=== PATIENT | female | born 1960 | race Caucasian/White ===

== ENCOUNTER → 2017-09-09 11:50 | Outpatient (CLI) | payer OTHER, SELFPAY ==
--- NOTE | 2017-09-09 | DI.RAD.S_ITS ---
PROCEDURE: XR ANKLE RT MIN 3V INDICATIONS: PAIN IN RT ANKLE AND JOINTS OF RT FOOT TECHNIQUE: 3 views of the ankle were acquired. COMPARISON: None. FINDINGS: Bones: No fractures or dislocations. Ankle mortise is normally aligned. No suspicious bony lesions. Soft tissues: No tibiotalar joint effusion. Achilles tendon appears normal. IMPRESSION: No acute radiographic findings. If there is continued pain, followup exam or additional imaging such as MRI or CT could be performed for further assessment. Dictated by: Ingrid Xie M.D. on 09/09/2017 at 12:33 Approved by: Ingrid Xie M.D. on 09/09/2017 at 12:33
== END ==
PROVIDERS: PCP Internal Medicine; Visit Provider Student in an Organized Health Care Education/Training Program
DX: M25.571 Pain in right ankle and joints of right foot (principal)
CPT/HCPCS: 73610

== ENCOUNTER → 2017-09-16 09:50 | Outpatient (CLI) | payer OTHER, SELFPAY ==
[2017-09-16 11:45] LABS: Alanine Aminotransferase 35 IU/L (9-52); Aspartate Aminotransferase 28 IU/L (14-36); BUN Creatinine Ratio 17.5 (6-22); Blood Urea Nitrogen 14 mg/dL (7-17); Calcium 9.7 mg/dL (8.4-10.2); Carbon Dioxide 32 mmol/L (22-32); Chloride 99 mmol/L (98-107); Cholesterol 148 mg/dL (140-199); Estimated Glomerular Filt Rate > 60.0 mL/min (>60); Glucose 164 mg/dL (70-100); HDL Cholesterol 48 mg/dL (40-60); HEMOLYSIS < 15 (0-50); LDL Cholesterol Calculated 62 mg/dL (<100); Potassium 4.7 mmol/L (3.4-5.1); Sodium 141 mmol/L (137-145); Triglycerides 191 mg/dL (35-150)
[2017-09-16 11:52] LABS: Hemoglobin A1C% w Est Avg Glu 7.4 % (4.0-6.0)
[2017-09-16 15:52] LABS: Creatinine Urine Random 123.8 mg/dL
== END ==
PROVIDERS: PCP Internal Medicine; Visit Provider Internal Medicine
DX: E11.9 Type 2 diabetes mellitus without complications (principal); E78.5 Hyperlipidemia, unspecified
CPT/HCPCS: 36415; 80048; 80061; 82043; 82570; 83036; 84450; 84460

== ENCOUNTER → 2017-10-09 10:17 | Outpatient (CLI) | payer OTHER, SELFPAY ==
[2017-10-09 10:35] LABS: Add Manual Diff / Slide Review NO; Hematocrit 37.9 % (36-46); Lymphocytes Percent Auto 20.8 % (25-40); Mean Corpuscular HGB Conc 34.3 % (30-36); Mean Corpuscular Hemoglobin 31.2 PG (26-34); Mean Corpuscular Volume 91.1 fL (80-100); Monocytes Percent Auto 6.9 % (3-14); Neutrophils Absolute Auto 3400 /uL (3000-5900); Neutrophils Percent Auto 69.3 % (50-75); Platelet Count 212 X10^3/uL (150-400); Red Blood Cell Count 4.16 X10^6/uL (4.0-5.2); Red Cell Distribution Width 15.2 % (11.6-14.8)
[2017-10-09 10:46] LABS: Alanine Aminotransferase 35 IU/L (9-52); Albumin 4.4 g/dL (3.5-5.0); Albumin Globulin Ratio 1.5 (1.0-2.8); Alkaline Phosphatase 70 U/L (38-126); Aspartate Aminotransferase 27 IU/L (14-36); BUN Creatinine Ratio 22.9 (6-22); Bilirubin Total 0.6 mg/dL (0.2-1.3); Blood Urea Nitrogen 16 mg/dL (7-17); Calcium 9.7 mg/dL (8.4-10.2); Carbon Dioxide 29 mmol/L (22-32); Chloride 104 mmol/L (98-107); Estimated Glomerular Filt Rate > 60.0 mL/min (>60); Glucose 172 mg/dL (70-100); HEMOLYSIS < 15 (0-50); Potassium 4.6 mmol/L (3.4-5.1); Sodium 144 mmol/L (137-145); Total Protein 7.4 g/dL (6.3-8.2)
== END ==
PROVIDERS: Family Provider Psychiatry & Neurology Neurology; PCP Internal Medicine; Visit Provider Psychiatry & Neurology Neurology
DX: T88.7XXA Unspecified adverse effect of drug or medicament, initial encounter (principal)
CPT/HCPCS: 36415; 80053; 85025

== ENCOUNTER → 2017-10-24 08:52 | Outpatient (CLI) | payer OTHER, SELFPAY ==
--- NOTE | 2017-10-24 | DI.MRI.S_ITS ---
PROCEDURE: MR CERVICAL SPINE WO/W CON INDICATIONS: MS TECHNIQUE: Noncontrast sagittal T1 spin echo and T2 fast spin echo, sagittal STIR, sagittal PD fast spin echo, foraminal oblique sagittal T2 fast spin echo, axial gradient echo or T2 fast spin echo through the cervical spine. After the administration of contrast, sagittal and axial T1 spin echo with fat saturation through the cervical spine. COMPARISON: [facility], MR, C-SPINE W&WO CONTRAST, 05/10/2016, 8:46. [facility], MR, C-SPINE W&WO CONTRAST, 03/28/2017, 17:18. FINDINGS: Image quality: Excellent. Alignment and curvature: There is normal bony alignment. Marrow: Marrow demonstrates normal overall signal. Spinal cord: T2 hyperintense white matter lesions are present in cervical cord at the level of C5-C6 and C7, unchanged from the last exam. On contrast enhanced images, there is subtle enhancement involving the C5-C6 lesion. No suspicious intramedullary enhancement. No cerebellar tonsillar herniation. Paraspinous soft tissues: No paravertebral masses or suspicious enhancement. C2-C3: Normal appearance. C3-C4: Moderate disc desiccation with preserved disc height. There is broad posterior disc bulge. There is mild bilateral facet arthropathy. The central canal is minimally narrowed. Moderate left and mild right foraminal stenosis, unchanged from the last exam. C4-C5: Moderate disc desiccation with preserved disc height. There is broad posterior disc bulge and disc osteophyte complex. There is mild bilateral facet arthropathy. The central canal is minimally narrowed. No significant foraminal stenosis. C5-C6: Surgically fused. No significant central canal or foraminal stenosis. C6-C7: Surgically fused. Broad posterior osteophyte causing [id number] central canal stenosis. No foraminal stenosis. No significant change. C7-T1: Normal appearance. IMPRESSION: 1. White matter lesions in the cervical cord at C5-C6 and C7 levels appear unchanged in size when compared to the last exam. The C5-C6 lesion, however, demonstrates subtle enhancement. 2. No new lesions identified. 3. Degenerative and post surgical changes in cervical spine as described. 4. Moderate to severe central canal stenosis at C6-C7. 5. Foraminal stenosis at multiple levels as described. Dictated by: Robb Heard M.D. on 10/24/2017 at 14:33 Approved by: Robb Heard M.D. on 10/24/2017 at 14:44
--- NOTE | 2017-10-24 | DI.MRI.S_ITS ---
PROCEDURE: MR HEAD/BRAIN WO/W CON INDICATIONS: 57 year-old woman with multiple sclerosis. TECHNIQUE: Noncontrast axial T1 spin echo, axial T2 fast spin echo, sagittal and axial FLAIR, coronal T2 fast spin echo, axial gradient echo, axial diffusion and ADC through the brain. After the administration of contrast, axial and coronal 3D VIBE or T1 spin echo with fat saturation through the brain. COMPARISON: [facility], MR, BRAIN W&WO CONTRAST, 03/28/2017, 17:18. [facility], MR, BRAIN W&WO CONTRAST, 05/10/2016, 8:22. FINDINGS: Image quality: Excellent. CSF Spaces: Basal cisterns are patent. No extra-axial fluid collections. Ventricles are normal in size and shape. Brain: Foci of T2 hyperintensity in periarticular matter involving the corpus callosum are again noted, consistent with multiple sclerosis. Compared with the last MRI, white matter lesions are overall stable in size and number. There are no enhancing lesions present. No midline shift. No intracranial bleeds or masses. No abnormal intracranial enhancement. The brainstem appears normal. Diffusion-weighted images demonstrate no acute ischemic insults. No chronic ischemic insults. Normal intravascular flow voids are present. Skull and face: Calvarial marrow is normal in signal. Orbits appear normal. Sinuses: Mastoids appear clear. Mild ethmoid sinus mucosal thickening is again noted. IMPRESSION: 1. Stable white matter lesions consistent with multiple sclerosis. No enhancing lesions are present. 2. Mild chronic ethmoid sinus disease. Dictated by: Robb Heard M.D. on 10/24/2017 at 14:18 Approved by: Robb Heard M.D. on 10/24/2017 at 14:33
--- NOTE | 2017-10-24 | DI.MRI.S_ITS ---
PROCEDURE: MR THORACIC SPINE WO/W CON INDICATIONS: 57-year-old woman with multiple sclerosis. TECHNIQUE: Noncontrast sagittal T1 spin echo and T2 fast spin echo, sagittal STIR, axial T1 and T2 fast spin echo through the thoracic spine. After the administration of contrast, axial and sagittal T1 spin echo with fat saturation through the thoracic spine. COMPARISON: [facility], MR, C-SPINE W&WO CONTRAST, 01/10/2015, 7:35. [facility], MR, MR CERVICAL SPINE WO/W CON, 10/24/2017, 9:29. [facility], MR, C-SPINE W&WO CONTRAST, 03/28/2017, 17:18. FINDINGS: Image quality: Excellent. Alignment and curvature: There is normal bony alignment. Marrow: Marrow is of normal overall signal. No acute vertebral body compression fractures. Spinal cord: Visualized thoracic spinal cord is of normal signal and size. No white matter lesion is identified. No abnormal intramedullary enhancement. Paraspinous soft tissues: No paravertebral masses or abnormal enhancement. Miscellaneous: Central canal and foramina appear widely patent at all scanned levels. IMPRESSION: No MS plaques are identified in the thoracic cord. Dictated by: Robb Heard M.D. on 10/24/2017 at 14:44 Approved by: Robb Heard M.D. on 10/24/2017 at 14:46
== END ==
PROVIDERS: Family Provider Psychiatry & Neurology Neurology; PCP Internal Medicine; Visit Provider Psychiatry & Neurology Neurology
DX: G35 Multiple sclerosis (principal); J32.2 Chronic ethmoidal sinusitis; Z98.1 Arthrodesis status; M48.02 Spinal stenosis, cervical region; M47.812 Spondylosis without myelopathy or radiculopathy, cervical region; M50.21 Other cervical disc displacement, high cervical region
CPT/HCPCS: 70553; 72156; 72157; A9579

== ENCOUNTER → 2017-11-25 09:00 | Outpatient (CLI) | payer OTHER, SELFPAY | PROVIDERS: Family Provider Psychiatry & Neurology Neurology; PCP Internal Medicine | DX: Z23 Encounter for immunization (principal) | CPT/HCPCS: 90471; 90686 ==

== ENCOUNTER → 2017-12-13 08:43 | Outpatient (CLI) | payer OTHER, SELFPAY ==
[2017-12-13 09:00] LABS: Add Manual Diff / Slide Review NO; Basophils Percent Auto 1.2 % (0-2); Eosinophils Percent Auto 2.1 % (2-4); Hematocrit 36.9 % (36-46); Hemoglobin 12.5 g/dL (12.0-16.0); Lymphocytes Percent Auto 22.8 % (25-40); Mean Corpuscular HGB Conc 33.9 % (30-36); Mean Corpuscular Hemoglobin 30.3 PG (26-34); Mean Corpuscular Volume 89.4 fL (80-100); Monocytes Percent Auto 7.4 % (3-14); Neutrophils Absolute Auto 2900 /uL (3000-5900); Neutrophils Percent Auto 66.5 % (50-75); Platelet Count 200 X10^3/uL (150-400); Red Blood Cell Count 4.12 X10^6/uL (4.0-5.2); Red Cell Distribution Width 14.8 % (11.6-14.8); White Blood Cell Count 4.3 X10^3/uL (4.5-11.0)
[2017-12-13 09:11] LABS: Alanine Aminotransferase 31 IU/L (9-52); Albumin 4.4 g/dL (3.5-5.0); Albumin Globulin Ratio 1.5 (1.0-2.8); Alkaline Phosphatase 64 U/L (38-126); Aspartate Aminotransferase 22 IU/L (14-36); Bilirubin Total 0.4 mg/dL (0.2-1.3); Blood Urea Nitrogen 16 mg/dL (7-17); Calcium 8.9 mg/dL (8.4-10.2); Carbon Dioxide 27 mmol/L (22-32); Chloride 103 mmol/L (98-107); Estimated Glomerular Filt Rate > 60.0 mL/min (>60); Globulin 2.9 g/dL (1.7-4.1); Glucose 217 mg/dL (70-100); HEMOLYSIS < 15 (0-50); Potassium 4.2 mmol/L (3.4-5.1); Sodium 143 mmol/L (137-145); Total Protein 7.3 g/dL (6.3-8.2)
[2017-12-13 09:36] LABS: Vitamin D 25 Hydroxy (D3) 52.9 ng/mL (30.0-100.0)
== END ==
PROVIDERS: Family Provider Psychiatry & Neurology Neurology; PCP Internal Medicine; Visit Provider Physician Assistant
DX: E55.9 Vitamin D deficiency, unspecified (principal); T88.7XXA Unspecified adverse effect of drug or medicament, initial encounter
CPT/HCPCS: 36415; 80053; 82306; 85025

== ENCOUNTER 2018-01-23 07:30 | Outpatient (RCR) | payer OTHER, SELFPAY ==
--- NOTE | 2017-11-22 16:02 | PT.OIE ---
Current Diagnoses Multiple sclerosis (11/21/17) Provider Visit Care Team Role Provider Type Christelle Padron MD Primary Care Provider Physician Specialty: Internal Medicine Address: [address] [place] [address], [place], [address] Email: Fawad Antunez MD Attending Provider Non-Staff Family Provider Specialty: Neurology Address: [address] , [place], [address] Email: Physical Therapy Initial Evaluation PT-OP-A Visit Information Start: 11/21/17 07:28 Freq: Status: Active Protocol: Document 11/21/17 07:30 AMB (Rec: 11/22/17 07:13 AMB [email or web address]) Out-Patient Physical Therapy Visit Information Visit Information Visit Type Initial Evaluation Visit Start Time 07:30 Visit Stop Time 08:15 Total Visit Minutes 45 Visit Number 1 Evaluation Information Evaluation Date 11/21/17 PT-OP-B Current Condition Start: 11/21/17 07:28 Freq: Status: Active Protocol: Document 11/21/17 07:30 AMB (Rec: 11/22/17 15:44 AMB [email or web address]) Current Condition History of Current Condition Onset Date 9 months ago Current Complaints R foot drop History of Current Condition The patient was diagnosed with multiple sclerosis 23 years ago. She was fairly asymptomatic until an MS flare 9 months ago and she developed right sided foot drop at that time. Since then her frequency of falling has increased. She thinks she has fallen 8x in the last 6 months, many more near misses. Often falls are when she is doing higher level activities (biking, hiking)but sometimes when she is walking she trips over her right foot. Prior Functional Status Baseline Function- ADL's Independent Baseline Function- Mobility Independent Baseline Function- Work/School Pt works and drives. 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 Current Functional Impairments (Reported) Functional Limitations- Mobility/Gait Frequent falls, especially with uneven terrain, pt does not use an assistive device. Personal Factors Other Personal Factors That May Effect DMII, history of cervical Therapy/Recovery spine surgery for cervical stenosis. PT-OP-C Subjective Start: 11/21/17 07:28 Freq: Status: Active Protocol: Document 11/21/17 07:30 AMB (Rec: 11/22/17 15:44 AMB [email or web address]) Patient Questionnaires Foot & Ankle Ability Measure- ADL and Sports FAAM-ADL Score 75 FAAM-ADL Impairment 1 to 19% Impaired (Score 67-83 ) FAAM-Sport Score 24 FAAM-Sport Impairment 20 to 39% Impaired (Score 19- 24) Lower Extremity Functional Scale LEFS Score 74 LEFS Impairment 1 to 19% Impaired (Score 63-79 ) PT-OP-D Balance Start: 11/21/17 07:28 Freq: Status: Active Protocol: Document 11/21/17 07:30 AMB (Rec: 11/22/17 15:49 AMB [email or web address]) Balance Tests Single Limb Standing Single Limb- Right 10 seconds, increased ankle sway Single Limb- Left 12 seconds Tandem Tandem Standing falls PT-OP-E Functional Tests Start: 11/22/17 15:44 Freq: Status: Active Protocol: Document 11/21/17 07:30 AMB (Rec: 11/22/17 15:49 AMB [email or web address]) Functional Tests Dynamic Gait Index (DGI) Score 17 DGI Impairment Rating 20 to <40% Impaired (Score 15- 19) PT-OP-G Mobility & Gait Start: 11/21/17 07:28 Freq: Status: Active Protocol: Document 11/21/17 07:30 AMB (Rec: 11/22/17 15:49 AMB [email or web address]) OP Gait Assessment Comments Gait Comments Pt ambulates without assistive device with good step length, but increased steppage gait on the right to compensate for foot drop. When trying off the shelf AFO, she continued to compensate as she now has that habit. PT-OP-H Neuro Start: 11/21/17 07:28 Freq: Status: Active Protocol: Document 11/21/17 07:30 AMB (Rec: 11/22/17 15:49 AMB [email or web address]) Sensation Evaluation Comments Summary Comments Pt reports bilateral neuropathy, worst in toes, bottom of the feet. PT-OP-M Strength Start: 11/21/17 07:28 Freq: Status: Active Protocol: Document 11/21/17 07:30 AMB (Rec: 11/22/17 15:44 AMB [email or web address]) Ankle/Foot Strength Ankle and Foot Manual Muscle Testing Right Dorsiflexion (L4) 3 Fair Plantarflexion (S1) 4+ Good+ Inversion 3 Fair Eversion (S1) 3 Fair Left Dorsiflexion (L4) 5 Normal Plantarflexion (S1) 5 Normal Inversion 4+ Good+ Eversion (S1) 5 Normal PT-OP-Q Treatments Start: 11/21/17 07:28 Freq: Status: Active Protocol: Document 11/21/17 07:30 AMB (Rec: 11/22/17 11:26 AMB [email or web address]) Therapeutic Exercises Sitting Exercises 1 Sitting Exercise Name ankle dorsiflexion t band Resistance #3 band Reps/Minutes 10 reps Standing Exercises 2 Standing Exercise Name single leg balance Reps/Minutes 3-5 1 Standing Exercise Name modified tandem stance Reps/Minutes 30x2 PT-OP-T Assessment and Plan Start: 11/21/17 07:28 Freq: Status: Active Protocol: Document 11/21/17 07:30 AMB (Rec: 11/22/17 13:00 AMB [email or web address]) Physical Therapy Assessment Rehab Potential Rehabilitation Potential Good Evaluation Complexity Number of Personal Factors/Comorbidities 1-2 Number of Body Systems Impaired 3 Clinical Presentation at Evaluation Stable Impairments Impairments Balance Gait Strength Goals Two Impairment Balance Short Term Goal (STG) The patient will maintain modified tandem stance for 30 seconds without excessive hip or steppage response. STG Duration 4 weeks Detention Goal (LTG) The patient will show improved balance by improving her DGI to 20/24. LTG Duration 8 weeks One Impairment Foot drop Short Term Goal (STG) The patient will be independent with an ankle strengthening HEP. STG Duration 4 weeks Electronic Drafter Goal (LTG) The patient will ambulate in the community for 10 minutes without steppage or circumduction gait compensation. LTG Duration 8 weeks Assessment Summary Assessment The patient attends physical therapy with new onset right foot drop associated with multiple sclerosis. This is increasing her fall risk. Considering that she reports approximately 8 falls in the past 6 months she would greatly benefit from an AFO. She tried an off the shelf AFO during her evaluation, and she would need some time to get used to the brace, but it did help with her foot drop. She would also benefit from PT to improve her ankle stability. Physical Therapy Plan Frequency and Duration Frequency of Treatment 1x/Week Duration of Treatment 12 weeks Plan of Care Start Date 11/21/17 Plan of Care End Date 02/13/17 Therapeutic Interventions Therapeutic Interventions Aquatic Therapy Balance Training Gait Training Home Exercise Program Manual Therapy Neuromuscular Re-education Self-Care/Home Management Therapeutic Activities Therapeutic Exercises Modalities Cold Pack/Ice Massage Hot Packs Other Therapeutic Interventions Sending prescription for AFO to [facility] Next Visit Focus/Plan Next Note Type Treatment Note Next Visit Plan Progress ankle stability HEP, balance training
--- NOTE | 2017-11-22 16:02 | PT.OPPOC ---
Current Diagnoses Multiple sclerosis (11/21/17) Provider Visit Care Team Role Provider Type Christelle Padron MD Primary Care Provider Physician Specialty: Internal Medicine Address: [address] [place] [address], [place], [address] Email: Fawad Antunez MD Attending Provider Non-Staff Family Provider Specialty: Neurology Address: [address], [place], [address] Email: Plan Of Care PT-OP-T Assessment and Plan Start: 11/21/17 07:28 Freq: Status: Active Protocol: Document 11/21/17 07:30 AMB (Rec: 11/22/17 13:00 AMB [email or web address]) Physical Therapy Assessment Rehab Potential Rehabilitation Potential Good Evaluation Complexity Number of Personal Factors/Comorbidities 1-2 Number of Body Systems Impaired 3 Clinical Presentation at Evaluation Stable Impairments Impairments Balance Gait Strength Goals Two Impairment Balance Short Term Goal (STG) The patient will maintain modified tandem stance for 30 seconds without excessive hip or steppage response. STG Duration 4 weeks Half-Way Goal (LTG) The patient will show improved balance by improving her DGI to 20/24. LTG Duration 8 weeks One Impairment Foot drop Short Term Goal (STG) The patient will be independent with an ankle strengthening HEP. STG Duration 4 weeks Wire Splicer Goal (LTG) The patient will ambulate in the community for 10 minutes without steppage or circumduction gait compensation. LTG Duration 8 weeks Assessment Summary Assessment The patient attends physical therapy with new onset right foot drop associated with multiple sclerosis. This is increasing her fall risk. Considering that she reports approximately 8 falls in the past 6 months she would greatly benefit from an AFO. She tried an off the shelf AFO during her evaluation, and she would need some time to get used to the brace, but it did help with her foot drop. She would also benefit from PT to improve her ankle stability. Physical Therapy Plan Frequency and Duration Frequency of Treatment 1x/Week Duration of Treatment 12 weeks Plan of Care Start Date 11/21/17 Plan of Care End Date 02/13/17 Therapeutic Interventions Therapeutic Interventions Aquatic Therapy Balance Training Gait Training Home Exercise Program Manual Therapy Neuromuscular Re-education Self-Care/Home Management Therapeutic Activities Therapeutic Exercises Modalities Cold Pack/Ice Massage Hot Packs Other Therapeutic Interventions Sending prescription for AFO to [facility] Next Visit Focus/Plan Next Note Type Treatment Note Next Visit Plan Progress ankle stability HEP, balance training Plan of Care Dates Plan of Care Start Date 11/21/17 Plan of Care End Date 02/13/17 Please Sign and Return: I have reviewed this Plan of Care and certify that the skilled therapy services above are required to meet the patient?s needs. Physician Signature Date Printed Name and Credentials Clinical Instructor Signature Printed Name and Credentials
--- NOTE | 2017-12-12 09:39 | PT.OTN ---
Current Diagnoses Multiple sclerosis (12/12/17) Foot drop, right foot (12/12/17) Physical Therapy Treatment Note PT-OP-A Visit Information Start: 11/21/17 07:28 Freq: Status: Active Protocol: Document 12/12/17 08:15 AMB (Rec: 12/12/17 09:39 AMB [email or web address]) Out-Patient Physical Therapy Visit Information Visit Information Visit Type Treatment Note Visit Start Time 08:15 Visit Stop Time 09:00 Total Visit Minutes 45 Visit Number 2 Evaluation Information Evaluation Date 11/21/17 PT-OP-B Current Condition Start: 11/21/17 07:28 Freq: Status: Active Protocol: Document 11/21/17 07:30 AMB (Rec: 11/22/17 15:44 AMB [email or web address]) Current Condition History of Current Condition Onset Date 9 months ago Current Complaints R foot drop History of Current Condition The patient was diagnosed with multiple sclerosis 23 years ago. She was fairly asymptomatic until an MS flare 9 months ago and she developed right sided foot drop at that time. Since then her frequency of falling has increased. She thinks she has fallen 8x in the last 6 months, many more near misses. Often falls are when she is doing higher level activities (biking, hiking)but sometimes when she is walking she trips over her right foot. Prior Functional Status Baseline Function- ADL's Independent Baseline Function- Mobility Independent Baseline Function- Work/School Pt works and drives. 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 Current Functional Impairments (Reported) Functional Limitations- Mobility/Gait Frequent falls, especially with uneven terrain, pt does not use an assistive device. Personal Factors Other Personal Factors That May Effect DMII, history of cervical Therapy/Recovery spine surgery for cervical stenosis. PT-OP-C Subjective Start: 11/21/17 07:28 Freq: Status: Active Protocol: Document 12/12/17 08:15 AMB (Rec: 12/12/17 09:39 AMB [email or web address]) OP-PT Subjective Patient Comments Patient Comments Pt reports she has been doing well. She does note the foot drop at the end of the day when she has been busy, but otherwise it is better. She decided not to get the AFO. She has had no falls since the last time she was in PT. PT-OP-D Balance Start: 11/21/17 07:28 Freq: Status: Active Protocol: Document 11/21/17 07:30 AMB (Rec: 11/22/17 15:49 AMB [email or web address]) Balance Tests Single Limb Standing Single Limb- Right 10 seconds, increased ankle sway Single Limb- Left 12 seconds Tandem Tandem Standing falls PT-OP-E Functional Tests Start: 11/22/17 15:44 Freq: Status: Active Protocol: Document 11/21/17 07:30 AMB (Rec: 11/22/17 15:49 AMB [email or web address]) Functional Tests Dynamic Gait Index (DGI) Score 17 DGI Impairment Rating 20 to <40% Impaired (Score 15- 19) PT-OP-G Mobility & Gait Start: 11/21/17 07:28 Freq: Status: Active Protocol: Document 11/21/17 07:30 AMB (Rec: 11/22/17 15:49 AMB [email or web address]) OP Gait Assessment Comments Gait Comments Pt ambulates without assistive device with good step length, but increased steppage gait on the right to compensate for foot drop. When trying off the shelf AFO, she continued to compensate as she now has that habit. PT-OP-H Neuro Start: 11/21/17 07:28 Freq: Status: Active Protocol: Document 11/21/17 07:30 AMB (Rec: 11/22/17 15:49 AMB [email or web address]) Sensation Evaluation Comments Summary Comments Pt reports bilateral neuropathy, worst in toes, bottom of the feet. PT-OP-M Strength Start: 11/21/17 07:28 Freq: Status: Active Protocol: Document 11/21/17 07:30 AMB (Rec: 11/22/17 15:44 AMB [email or web address]) Ankle/Foot Strength Ankle and Foot Manual Muscle Testing Right Dorsiflexion (L4) 3 Fair Plantarflexion (S1) 4+ Good+ Inversion 3 Fair Eversion (S1) 3 Fair Left Dorsiflexion (L4) 5 Normal Plantarflexion (S1) 5 Normal Inversion 4+ Good+ Eversion (S1) 5 Normal PT-OP-Q Treatments Start: 11/21/17 07:28 Freq: Status: Active Protocol: Document 12/12/17 08:15 AMB (Rec: 12/12/17 09:39 AMB [email or web address]) Gym Equipment Shuttle Balance 1 Details RED Reps/Duration 10 min Comments stride stance eyes open Therapeutic Exercises Sitting Exercises 2 Sitting Exercise Name ankle eversion t band Equipment Used #3 band Reps/Minutes 2x10 1 Sitting Exercise Name ankle dorsiflexion t band Resistance #3 band Reps/Minutes 2x 10 reps Standing Exercises 4 Standing Exercise Name calf stretch Equipment Used DINO Comments 30x2 3 Standing Exercise Name heel raise Comments single/ double leg 2 Standing Exercise Name single leg balance Reps/Minutes 3-5 1 Standing Exercise Name modified tandem stance Reps/Minutes 30x2 Neuro Re-Education Treatment Balance Activities 1 Details NBOS on berry foam Comments eyes closed/ eyes open with head turn PT-OP-T Assessment and Plan Start: 11/21/17 07:28 Freq: Status: Active Protocol: Document 12/12/17 08:15 AMB (Rec: 12/12/17 09:39 AMB [email or web address]) Physical Therapy Assessment Assessment Summary Assessment Pt's dorsiflexion strength is improving, difficulty with single leg heel raise, so added that to HEP. See pt again in one month to progress exercises. Physical Therapy Plan Next Visit Focus/Plan Next Note Type Treatment Note Next Visit Plan Progress ankle stability HEP, balance training
--- NOTE | 2018-01-23 16:10 | PT.OTN ---
Current Diagnoses Multiple sclerosis (01/23/18) Foot drop, right foot (01/23/18) Physical Therapy Treatment Note PT-OP-A Visit Information Start: 11/21/17 07:28 Freq: Status: Active Protocol: Document 01/23/18 07:30 AMB (Rec: 01/23/18 16:07 AMB [email or web address]) Out-Patient Physical Therapy Visit Information Visit Information Visit Type Discharge Summary Visit Start Time 07:30 Visit Stop Time 08:15 Total Visit Minutes 45 Visit Number 3 Evaluation Information Evaluation Date 11/21/17 PT-OP-B Current Condition Start: 11/21/17 07:28 Freq: Status: Active Protocol: Document 11/21/17 07:30 AMB (Rec: 11/22/17 15:44 AMB [email or web address]) Current Condition History of Current Condition Onset Date 9 months ago Current Complaints R foot drop History of Current Condition The patient was diagnosed with multiple sclerosis 23 years ago. She was fairly asymptomatic until an MS flare 9 months ago and she developed right sided foot drop at that time. Since then her frequency of falling has increased. She thinks she has fallen 8x in the last 6 months, many more near misses. Often falls are when she is doing higher level activities (biking, hiking)but sometimes when she is walking she trips over her right foot. Prior Functional Status Baseline Function- ADL's Independent Baseline Function- Mobility Independent Baseline Function- Work/School Pt works and drives. 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 Current Functional Impairments (Reported) Functional Limitations- Mobility/Gait Frequent falls, especially with uneven terrain, pt does not use an assistive device. Personal Factors Other Personal Factors That May Effect DMII, history of cervical Therapy/Recovery spine surgery for cervical stenosis. PT-OP-C Subjective Start: 11/21/17 07:28 Freq: Status: Active Protocol: Document 01/23/18 07:30 AMB (Rec: 01/23/18 16:07 AMB [email or web address]) OP-PT Subjective Patient Comments Patient Comments Pt reports she has been doing her exercises and feels she is about 85% of what she was previous to the MS flare. PT-OP-D Balance Start: 11/21/17 07:28 Freq: Status: Active Protocol: Document 01/23/18 07:30 AMB (Rec: 01/23/18 16:10 AMB [email or web address]) Balance Tests Single Limb Standing Single Limb- Right 10 seconds, increased ankle sway Single Limb- Left 12 seconds Tandem Tandem Standing able to tandem walk PT-OP-E Functional Tests Start: 11/22/17 15:44 Freq: Status: Active Protocol: Document 01/23/18 07:30 AMB (Rec: 01/23/18 16:10 AMB [email or web address]) Functional Tests Dynamic Gait Index (DGI) Score 23 PT-OP-G Mobility & Gait Start: 11/21/17 07:28 Freq: Status: Active Protocol: Document 01/23/18 07:30 AMB (Rec: 01/23/18 16:10 AMB [email or web address]) OP Gait Assessment Comments Gait Comments Pt with good gait pattern when assessed in the morning. No steppage gait noted. PT-OP-H Neuro Start: 11/21/17 07:28 Freq: Status: Active Protocol: Document 11/21/17 07:30 AMB (Rec: 11/22/17 15:49 AMB [email or web address]) Sensation Evaluation Comments Summary Comments Pt reports bilateral neuropathy, worst in toes, bottom of the feet. PT-OP-M Strength Start: 11/21/17 07:28 Freq: Status: Active Protocol: Document 01/23/18 07:30 AMB (Rec: 01/23/18 16:10 AMB [email or web address]) Ankle/Foot Strength Ankle and Foot Manual Muscle Testing Right Dorsiflexion (L4) 4+ Good+ Plantarflexion (S1) 4+ Good+ Inversion 4+ Good+ Eversion (S1) 4+ Good+ PT-OP-Q Treatments Start: 11/21/17 07:28 Freq: Status: Active Protocol: Document 01/23/18 07:30 AMB (Rec: 01/23/18 16:07 AMB [email or web address]) Gym Equipment Shuttle Balance 1 Details RED Reps/Duration 10 min Comments stride stance eyes open Therapeutic Exercises Standing Exercises 4 Standing Exercise Name calf stretch Equipment Used DINO Comments 30x2 3 Standing Exercise Name heel raise Comments single/ double leg 2 Standing Exercise Name single leg balance Reps/Minutes 3-5 1 Standing Exercise Name modified tandem stance Reps/Minutes 30x2 Neuro Re-Education Treatment Balance Activities 2 Details 3 step and SLS with hip ER 1 Details NBOS on berry foam Comments eyes closed/ eyes open with head turn PT-OP-T Assessment and Plan Start: 11/21/17 07:28 Freq: Status: Active Protocol: Document 01/23/18 07:30 AMB (Rec: 01/23/18 16:07 AMB [email or web address]) Physical Therapy Assessment Goals Two Impairment Balance Short Term Goal (STG) The patient will maintain modified tandem stance for 30 seconds without excessive hip or steppage response. STG Duration MET Mcfp Goal (LTG) The patient will show improved balance by improving her DGI to 20/24. LTG Duration EXCEEDED One Impairment Foot drop Short Term Goal (STG) The patient will be independent with an ankle strengthening HEP. STG Duration MET Mcfp Goal (LTG) The patient will ambulate in the community for 10 minutes without steppage or circumduction gait compensation. LTG Duration EXCEEDED Assessment Summary Assessment Pt did well with higher level strengthening and balance exercises today. Single leg stance bilaterally is below age norm but much improved. No more falls and not noticing foot drop any more. Would encourage pt to continue with higher level balance HEP. Physical Therapy Plan Discharge Physical Therapy Discharge Reasons Goals Met
== END 2018-02-18 12:28 ==
LOC: PHYS 07:30
PROVIDERS: Family Provider Psychiatry & Neurology Neurology; PCP Internal Medicine; Visit Provider Psychiatry & Neurology Neurology
DX: G35 Multiple sclerosis (principal)
CPT/HCPCS: 97110; 97112; 97161

== ENCOUNTER → 2018-06-23 10:25 | Outpatient (CLI) | payer OTHER, SELFPAY ==
--- NOTE | 2018-06-23 | DI.MG.S_ITS ---
BILATERAL DIGITAL SCREENING MAMMOGRAM 3D/2D WITH CAD: 06/23/2018 CLINICAL: Routine screening. Comparison is made to exams dated: 06/08/2017 mammogram - [facility], 03/02/2016 mammogram, and 01/04/2015 mammogram - [facility]. There are scattered fibroglandular elements in both breasts. Current study was also evaluated with a Computer Aided Detection (CAD) system. There is an oval equal density lymph node with a circumscribed margin in the right breast posterior depth superior region seen on the mediolateral oblique view only. This is increased in size. No other significant masses, calcifications, or other findings are seen in either breast. IMPRESSION: INCOMPLETE: NEEDS ADDITIONAL IMAGING EVALUATION The oval equal density lymph node in the right breast is indeterminate. An ultrasound is recommended. This exam was interpreted at Station ID: [id number]. NOTE: For mammograms, a report in lay terms will be sent to the patient. Approximately 15% of breast malignancies will not be visualized mammographically. In the management of a palpable breast mass, a negative mammogram must not discourage biopsy of a clinically suspicious lesion. Electronically Signed By: Zackery juarez/martine:06/23/2018 16:24:59 letter sent: Need Ultrasound ACR BI-RADS Category 0: Incomplete [id number]
== END ==
PROVIDERS: PCP Internal Medicine; Visit Provider Internal Medicine
DX: Z12.31 Encounter for screening mammogram for malignant neoplasm of breast (principal)
CPT/HCPCS: 77063; 77067

== ENCOUNTER → 2018-06-27 08:57 | Outpatient (CLI) | payer OTHER, SELFPAY ==
[2018-06-27 10:13] LABS: Alanine Aminotransferase 44 IU/L (9-52); Aspartate Aminotransferase 27 IU/L (14-36); Cholesterol 229 mg/dL (140-199); HDL Cholesterol 42 mg/dL (40-60); LDL Cholesterol Calculated 149 mg/dL (<100); Triglycerides 189 mg/dL (35-150)
== END ==
PROVIDERS: PCP Internal Medicine; Visit Provider Internal Medicine
DX: E78.5 Hyperlipidemia, unspecified (principal)
CPT/HCPCS: 36415; 80061; 84450; 84460

== ENCOUNTER → 2018-07-01 09:39 | Outpatient (CLI) | payer OTHER, SELFPAY ==
--- NOTE | 2018-07-01 | DI.US.S_ITS ---
ULTRASOUND OF RIGHT AXILLA: 07/01/2018 CLINICAL: Patient returns today to evaluate a focal asymmetry in the right breast. Comparison is made to exams dated: 06/23/2018 mammogram, 06/08/2017 mammogram - [facility], 03/02/2016 mammogram, 12/22/2013 mammogram, and 01/04/2015 mammogram - [facility]. Color flow and real-time ultrasound of the right axilla were performed on the areas of interest. There is 2.6 cm x 1.3 cm x 2.2 cm oval enlarged lymph node with eccentric cortical thickening with a circumscribed margin in the right axillary tail. This oval enlarged lymph node is of mixed echogenicity with fatty hilum. This correlates with mammography findings. Color flow imaging demonstrates that there is vascularity present. IMPRESSION: SUSPICIOUS OF MALIGNANCY The 2.6 cm x 1.3 cm x 2.2 cm oval enlarged lymph node with eccentric cortical thickening in the right axillary tail is at an intermediate suspicion for malignancy. An ultrasound guided biopsy or an FNA are recommended. The findings were discussed with the patient at the conclusion of the study by Dr. Vaz. This exam was interpreted at Station ID: [id number]. Electronically Signed By: Zackery juarez/:07/01/2018 10:51:38 letter sent: Biopsy Required Ultrasound BI-RADS: 4b Suspicious abnormality - intermediate suspicion of malignancy
== END ==
PROVIDERS: PCP Internal Medicine; Visit Provider Internal Medicine
DX: R92.8 Other abnormal and inconclusive findings on diagnostic imaging of breast (principal); N64.89 Other specified disorders of breast; R59.0 Localized enlarged lymph nodes
CPT/HCPCS: 76642

== ENCOUNTER → 2018-07-16 13:15 | Outpatient (CLI) | payer OTHER, SELFPAY ==
--- NOTE | 2018-07-16 | PATH_ITS ---
[facility] Accession Number: [id number] . 01 Material submitted: . lymph node - RT AXILLARY LYMPH NODE . 01 Diagnosis: RIGHT AXILLARY LYMPH NODE, NEEDLE CORE BIOPSIES: 1. Lymph node with reactive lymphoid hyperplasia 2. No morphologic or immunohistochemical evidence of an epithelioid malignancy 07/23/2018 . 01 Electronically signed: . Vikki Olsen MD, Pathologist NPI- [id number] . 01 Gross description: . RT AXILLARY LYMPH NODE: Received in formalin are multiple fragment(s) of strong, soft tissue measuring 0.1 x 0.1 x 0.1 cm to 0.8 x 0.1 x 0.1 cm which is entirely submitted and submitted entirely in 1 cassette(s) /DMC /DMC . 01 Microscopic: . H/E-stained sections reveal multiple needle core biopsies of lymphoid tissue. Scattered germinal centers are identified that include tingible body macrophages. The interfollicular regions are comprised predominantly of small to intermediate-sized lymphocytes with occasional scattered tissue histiocytes, plasma cells, and a few larger lymphocytes. No distinct population of monomorphic lymphocytes are identified, including no confluent sheets of large atypical lymphocytes. No Hodgkin-like cell population is seen. Where sampled, the audelia capsule appears mildly thickened. No malignant epithelioid population is identified, and no foci of incipient or geographic necrosis are present. . Select immunohistochemical studies* were performed for further evaluation, with accompanying positive and negative controls. The lymphocytes are a mixture of Pax5+ B-cells and CD3+/CD5+ T-cells, with slight B-cell predominance. The B-cells lack aberrant expression of CD5, CD43, bcl-6, bcl-2, and cyclin D1. The germinal center B-cells appropriately express bcl-6, without bcl-2; have associated CD21+ [facility] meshworks and a high [id number] proliferative rate. The Fy-[id number] proliferative rate among the lymphocytes outside of the germinal centers is low, about 3-5%. A large subset of the B-cells outside the germinal centers are naive B-cells with coexpression of IgD and bcl-2. Immunostains for kappa and lambda light chains indicate the background plasma cells are polytypic. An immunostain for broad-spectrum LIONEL keratins reveals no evidence of metastatic carcinoma. . * Technical note: These tests and their performance characteristics have been determined by [facility]. They have not been cleared or approved by the U.S. Food and Drug Administration. The FDA has determined that such clearance or approval is not necessary. These tests are used for clinical purposes, and should not be regarded as investigational or for research. . 01 Pathologist provided ICD-10: R59.0 . 01 CPT . 970168, U23847, Z40252 Performed at: 01 [facility] [address] [place] [address] [address] [facility], [place], [place] [id number] MD Zackery Malcolm MD Phone: [phone]
--- NOTE | 2018-07-16 | DI.MG.S_ITS ---
UNILATERAL RIGHT DIGITAL DIAGNOSTIC MAMMOGRAM POST-NEEDLE BIOPSY: 07/16/2018 CLINICAL: Right axillary tail thickening. Comparison is made to exams dated: 06/23/2018 mammogram, 06/08/2017 mammogram - [facility], and 03/02/2016 mammogram - [facility]. There are scattered fibroglandular elements in right breast. There is a marker clip in the appropriate position in the right axillary tail. This marker clip placement is at the biopsy site. This correlates with ultrasound findings. IMPRESSION: POST PROCEDURE MAMMOGRAM FOR MARKER PLACEMENT There was a successful marker clip placement in the right axillary tail. This exam was interpreted at Station ID: [id number]. NOTE: For mammograms, a report in lay terms will be sent to the patient. Approximately 15% of breast malignancies will not be visualized mammographically. In the management of a palpable breast mass, a negative mammogram must not discourage biopsy of a clinically suspicious lesion. Electronically Signed By: Tayo Herman M.D. sdh/penrad:07/16/2018 16:53:13 ACR BI-RADS Category Post-procedure mammogram for marker placement
--- NOTE | 2018-07-16 | DI.US.S_ITS ---
ULTRASOUND GUIDED BIOPSY RIGHT BREAST WITH MARKING DEVICE INSERTED AND POST MAMMOGRAPHIC IMAGIN07/16/2018 CLINICAL: Right axillary node biopsy. PATIENT CONSENT: Risks (minor bleeding, infection, vasovagal reaction and repeat procedure), benefits and alternatives were explained to the patient and written informed consent was obtained. Correlation is made to exams dated: 07/16/2018 mammogram, 07/01/2018 ultrasound, 06/23/2018 mammogram - [facility], and 03/02/2016 mammogram - [facility]. An ultrasound guided biopsy using real-time ultrasound was performed for the concerning 1.3 cm x 2.6 cm x 4 cm circumscribed oval lymph node located in the right axillary tail. The skin was prepped in the usual manner. Local anesthetic was administered to the access site. A skin meek was made in the breast. The abnormality was approached from the lateral aspect. An 18 gauge biopsy needle was placed adjacent to the abnormality through an introducer device under ultrasound guidance. Once the needle was documented to be in the correct location, six specimens were obtained using Temno 18G. The patient received additional local anesthetic during the procedure. A Vision clip was inserted into the biopsy cavity. A skin closure strip and a sterile dressing were applied to the access site. Post procedure mammographic imaging demonstrates the location device at the targeted area and partial removal of the abnormality. The specimens were sent to the laboratory for pathological analysis. IMPRESSION: ULTRASOUND GUIDED BIOPSY BENIGN Ultrasound guided biopsy of the 1.3 cm x 2.6 cm x 4 cm lymph node in the right axillary tail was successful. Pathology indicates benign lymph node with reactive lymphoid hyperplasia. Pathology results are concordant with ultrasound findings. Recommend return to screening mammography. This exam was interpreted at Station ID: [id number]. Tayo Ortega M.D. [facility],ddp/:07/23/2018 17:53:48
== END ==
PROVIDERS: PCP Internal Medicine; Visit Provider Internal Medicine
DX: R59.0 Localized enlarged lymph nodes (principal)
CPT/HCPCS: 38505; 76942; 77065

== ENCOUNTER → 2018-08-05 11:39 | Outpatient (CLI) | payer OTHER, SELFPAY ==
[2018-08-05 12:16] LABS: Add Manual Diff / Slide Review NO; Basophils Absolute Auto 0 /uL (0-100); Basophils Percent Auto 0.6 % (0-2); Eosinophils Absolute Auto 100 /uL (0-450); Eosinophils Percent Auto 2.1 % (2-4); Hematocrit 37.8 % (36-46); Hemoglobin 13.1 g/dL (12.0-16.0); Lymphocytes Absolute Auto 1000 /uL (1100-4500); Lymphocytes Percent Auto 16.3 % (25-40); Mean Corpuscular HGB Conc 34.7 % (30-36); Mean Corpuscular Volume 89.5 fL (80-100); Monocytes Absolute Auto 400 /uL (0-900); Monocytes Percent Auto 7.4 % (3-14); Neutrophils Absolute Auto 4500 /uL (1500-7000); Neutrophils Percent Auto 73.6 % (50-75); Platelet Count 213 X10^3/uL (150-400); Red Blood Cell Count 4.22 X10^6/uL (4.0-5.2); Red Cell Distribution Width 14.8 % (11.6-14.8); White Blood Cell Count 6.1 X10^3/uL (4.5-11.0)
[2018-08-05 12:42] LABS: Alanine Aminotransferase 42 IU/L (9-52); Albumin 4.3 g/dL (3.5-5.0); Albumin Globulin Ratio 1.3 (1.0-2.8); Alkaline Phosphatase 98 U/L (38-126); Aspartate Aminotransferase 32 IU/L (14-36); Bilirubin Total 0.7 mg/dL (0.2-1.3); Blood Urea Nitrogen 16 mg/dL (7-17); Calcium 9.6 mg/dL (8.4-10.2); Carbon Dioxide 32 mmol/L (22-32); Chloride 101 mmol/L (98-107); Estimated Glomerular Filt Rate > 60.0 mL/min (>60); Globulin 3.3 g/dL (1.7-4.1); Glucose 193 mg/dL (70-100); HEMOLYSIS < 15 (0-50); Potassium 4.9 mmol/L (3.4-5.1); Sodium 141 mmol/L (137-145); Total Protein 7.6 g/dL (6.3-8.2)
== END ==
PROVIDERS: PCP Internal Medicine; Visit Provider Psychiatry & Neurology Neurology
DX: Z51.81 Encounter for therapeutic drug level monitoring (principal); J02.9 Acute pharyngitis, unspecified
CPT/HCPCS: 36415; 80053; 85025; 87070

== ENCOUNTER → 2018-08-22 08:39 | Outpatient (CLI) | payer OTHER, SELFPAY | PROVIDERS: PCP Internal Medicine; Visit Provider Physician Assistant | DX: J02.9 Acute pharyngitis, unspecified (principal) | CPT/HCPCS: 87070; 87147 ==

== ENCOUNTER 2018-09-14 11:51 | Emergency (ER) | payer OTHER, SELFPAY ==
[2018-09-14 11:57] VITALS: BP 125/78; PULSE 77; RESP 16; TEMP 37.1; O2SAT 99; BMI 27.3
[2018-09-14] MEDS: PROPARACAINE 0.5% OPHTH SOL 1 DROPS EYE-LEFT (12:25)
[2018-09-14 13:29] VITALS: BP 120/76; PULSE 72; RESP 16; O2SAT 99
--- NOTE | 2018-09-15 02:31 | ED.EYEPROB ---
HPI - Eye Problem <OLAF Segal - Last Filed: 09/15/18 02:54> General Chief complaint: Eye Problems Stated complaint: visual change in left eye Time Seen by Provider: 09/14/18 12:07 Source: patient Mode of arrival: ambulatory Limitations: no limitations History of Present Illness HPI Narrative: This is a 58 year old pleasant female, nonsmoker, who presents alone with left eye irritation since last night. She wears contact lens but she removed after the irritation. She also noticed swelling in lower conjunctiva and interfering with vision. She had used ice pack for this swelling. She reports sees black spots times which is not too abnormal for her. She also reports some oily discharge this morning which had slight yellowish mucus. She has history of MS, recent strep throat and ear infection. She sees Dr. Cheatham, orthopedic shoes salesperson, irregularly. She denies fever, chills, nausea, headache. Related Data Home Medications Medication Instructions Recorded Confirmed aspirin 81 mg PO QDAY #0 02/09/16 08/22/18 cholecalciferol (vitamin D3) 1 tab PO QDAY #0 02/09/16 08/22/18 [Vitamin D3] multivitamin [Multiple Vitamins] 1 tab PO QDAY #0 02/09/16 08/22/18 fluoxetine 20 mg capsule 20 mg PO DAILY 08/05/18 08/22/18 glatiramer 40 mg/mL subcutaneous 40 mg SUBCUT 3XW 08/05/18 08/22/18 syringe Previous Rx's Medication Instructions Recorded prednisone 20 mg tablet 20 mg PO DAILY #5 tab 08/22/18 ofloxacin 2 drop EYE-LEFT Q6H 7 Days #5 ml 09/14/18 Allergies Allergy/AdvReac Type Severity Reaction Status Date / Time erythromycin base Allergy Unknown Verified 08/22/18 08:33 [ERYTHROMYCIN BASE] Sulfa (Sulfonamide Allergy Unknown Verified 08/22/18 08:33 Antibiotics) [SULFA (SULFONAMIDE ANTIBIOTICS)] Review of Systems <OLAF Segal - Last Filed: 09/15/18 02:54> Review of Systems General: Denies fever, chills, fatigue, malaise, sweats. HEENT: Reports decreased vision, swelling to eye lids, swelling to inner lower conjunctiva, eye discharge. Denies sinus pain, ear pain, sore throat, difficulty swallowing, dizziness. Respiratory: Denies dyspnea, cough, wheezing, hemoptysis, sputum. Cardiovascular: Denies chest pain, palpitations, orthopnea, edema. Gastrointestinal: Denies nausea, vomiting, abdominal pain, diarrhea, constipation, melena. : Denies dysuria, frequency, incontinence, hematuria, urinary retention. Musculoskeletal: Denies weakness, joint pain or bony pain. Skin: Denies rash, skin lesions, or other. Neurologic: Denies weakness, headache, numbness, change in speech, confusion, seizures, incoordination. Psychiatric: No concerning psychosocial issues. 12-point review of systems is negative except for those stated above. PFSH <OLAF Segal - Last Filed: 09/15/18 02:54> Medical History (Updated 09/15/18 @ 02:40 by OLAF Segal) Multiple sclerosis (Acute) Surgical History (Updated 09/15/18 @ 02:40 by OLAF Segal) History of cholecystectomy (Chronic) History of 2 sections (Resolved) History of hip surgery (Resolved) Social History Smoking Status: Never smoker Social History Smoking Status: Never smoker Exam <OLAF Segal - Last Filed: 09/15/18 02:54> Narrative Exam Narrative: GEN: Alert, oriented x 3, well appearing and nourished, and in no acute distress. Head: Normal cephalic, atraumatic. No scalp or temporal tenderness, palpable mass or rash. ENT: Nose without bleeding, purulent discharge. Mucous membrane moist, no mucosal lesion. Throat without erythema, tonsillar hypertrophy or exudate. Uvula in midline, airway patent. Neck: Trachea in midline. No JVD, non-tender without lymphadenopathy. No masses or thyroid megaly. Supple, non-tender and meningeal signs. CARDIAC: Normal regular rate and rhythm without murmurs, gallops, or rubs. No chest wall tenderness. No peripheral edema, cyanosis or pallor. Capillary refill is less than 2 seconds. RESPIRATORY: Lungs are cleat to auscultate bilaterally. No cough, wheezes, rales, or rhonchi. No stridor, respiratory distress, increase work of breathing, or accessary muscle used. ABD: Abdomen soft, nontender and non-distended. No guarding or rebound tenderness to palpate. Bowel sounds are normal in all 4 quadrants. There is no palpable masses or organomegaly. EXT: Full painless ROM of all extremities with no loss of sensation, strength, effusion or edema. SKIN: Warm, dry, normal color for patient. No erythema, lesions or rash. BACK: Nontender without deformity or crepitance. No flank tenderness. NEUROLOGICAL: Alert and oriented to place, time and person. Sensation and motor function intact bilaterally. No facial droops, dysphasia. PSYCHIATRIC: Good judgement and reason, without hallucinations, abnormal affect or abnormal behaviors during the examination. Patient is not suicidal. Initial Vital Signs Initial Vital Signs: Vital Signs Temperature 98.7 F 09/14/18 11:57 Pulse Rate 77 09/14/18 11:57 Respiratory Rate 16 09/14/18 11:57 Blood Pressure 125/78 09/14/18 11:57 Pulse Oximetry 99 09/14/18 11:57 Eyes Visual Calrk: normal visual clark by confrontation Alignment and Position: alignment normal Eyelids: eyelid abnormality left upper eyelid erythema and swelling and left lower eyelid erythema and swelling Conjunctivae: conjunctival abnormality left conjunctival injection and discharge other (clear) Sclera: scleral abnormality left scleral injection diffuse; without foreign bodies and without scleral tenderness Cornea: corneas abnormal on the left with no foreign body noted and without ulcerations and fluorescein used (uptaken generalized) Pupils: PERRL EOM: EOM intact bilaterally Direct ophthalmoscopy: normal light reflex Other: Visual Acuity: OD- 20/30, OS-20/50, OU-20/25 with glasses. IOP: OD 25, OS 29 <Alicia Xiong DO - Last Filed: 09/15/18 08:36> Initial Vital Signs Initial Vital Signs: Vital Signs Temperature 98.7 F 09/14/18 11:57 Pulse Rate 77 09/14/18 11:57 Respiratory Rate 16 09/14/18 11:57 Blood Pressure 125/78 09/14/18 11:57 Pulse Oximetry 99 09/14/18 11:57 Course <OLAF Segal - Last Filed: 09/15/18 02:54> Orders Ordered: Discontinued Medications Proparacaine HCl (Parcaine 0.5% Ophth Zenia) 1 drops EYE-LEFT NOW ONE Stop: 09/14/18 12:22 Last Admin: 09/14/18 12:25 Dose: 1 drop <Alicia C DO Tyrese - Last Filed: 09/15/18 08:36> Orders Ordered: Discontinued Medications Proparacaine HCl (Parcaine 0.5% Ophth Zenia) 1 drops EYE-LEFT NOW ONE Stop: 09/14/18 12:22 Last Admin: 09/14/18 12:25 Dose: 1 drop MDM - Eye Problem <OLAF Segal - Last Filed: 09/15/18 02:54> Differential Diagnosis Likely corneal abrasion, conjunctivitis, periorbital cellulitis, glaucoma and other (allergic reaction) Medical Records Attestation: I reviewed the patient's medical records. MDM Narrative Medical decision making narrative: This is a pleasant 58-year-old female presents to ED with left eye irritation, decreased vision, swelling to left lower conjunctiva. Visual acuity has been obtained with decreased left eye vision is 20/50 while wearing glasses and mildly elevated intra-ocular pressure is 29 on affected site as compared to right eye vision at 20/30. IOP as 25. The patient denies eye pain, foreign body sensation, purulent discharge. Fluorescein exam was done and no isolated area has uptake in the dye. The patient's case was discussed with Dr. Xiong. No orthopedic shoes salesperson was available for addiction counselor today, however, patient sees Dr. Cheatham. I discussed of the findings with the patient and in length that the patient should not be wearing contact lenses and will treat her with antibiotic eye drops for possible corneal abrasion at this time. Patient is to call Dr. Cheatham's office tomorrow morning to make a follow-up arrangement for further evaluation and treatment. The patient was instructed return to ED with decreased vision, eye pain, fever, increasing swelling and redness around the eye/or orbit and verbalized the understanding and agrees with treatment plan and no further questions were expressed. Discharge Plan Departure Patient Disposition: Home Clinical Impression: Blurred vision, left eye Abrasion, corneal Qualifiers: Encounter type: initial encounter Laterality: left Qualified Code(s): S05.02XA - Injury of conjunctiva and corneal abrasion without foreign body, left eye, initial encounter Increased intraocular pressure Qualifiers: Laterality: left Qualified Code(s): H40.052 - Ocular hypertension, left eye Discharge Date/Time: 09/14/18 13:28 Interventions: ED Discharge Assessment Last Done: 09/14/18 13:29 Instructions: DI for Corneal Abrasion Activity Restrictions/Additional Instructions: You have been diagnosed with [corneal abrasion, increased IOP and blurred vision ]. What to do: *Take your medications as directed. Your eye drop, Ofloxacin has been sent to [facility]. *Follow up with Dr Cheatham, call for an appointment tomorrow morning. Let them know you were seen in the ED and that we asked you to be seen in follow up. *Return to ED if you have any new, worsening, or concerning symptoms, such as [increasing eye discomfort, significant vision change, fever, chills, nausea, vomiting, chest pain, breathing difficulty, increased redness/warmth and swelling around the ER left eye]. Prescriptions: New ofloxacin 0.3 % drops 2 drop EYE-LEFT Q6H 7 Days Qty: 5 RF: 0 No Action fluoxetine [Prozac] 20 mg capsule 20 mg PO DAILY RF: 0 glatiramer 40 mg/mL syringe 40 mg SUBCUT 3XW RF: 0 prednisone 20 mg tablet 20 mg PO DAILY Qty: 5 RF: 0 aspirin 81 MG tablet,delayed release (DR/EC) 81 mg PO QDAY Qty: 0 RF: 0 multivitamin [Multiple Vitamins] 1 EACH tablet 1 tab PO QDAY Qty: 0 RF: 0 cholecalciferol (vitamin D3) [Vitamin D3] 2,000 UNIT tablet 1 tab PO QDAY Qty: 0 RF: 0 Referrals: Michael Cheatham MD [Physician] - Christelle Padron MD [Primary Care Provider] - <Alicia Xiong DO - Last Filed: 09/15/18 08:36> Cosign ED Attending Cosignature Attestation: I was immediately available in the department for consultation, case discussed. Plan for no contacts, antibiotics for abrasions, no FB under lids. Patient needs short term follow up with Ophthalmology for IOP, although elevated bilaterally. Attempted to contact patients are Ophthalmology team but there are no after hours contact options. Patient sees Dr. Cheatham. This documentation has been reviewed and I agree with assessment and plan. Supervised by Alicia Xiong, DO
== END 2018-09-14 13:28 | disposition home or self-care (01) ==
PROVIDERS: Emergency Provider Nurse Practitioner Family; PCP Internal Medicine
DX: H53.8 Other visual disturbances (principal); S05.02XA Injury of conjunctiva and corneal abrasion without foreign body, left eye, initial encounter; H40.052 Ocular hypertension, left eye
CPT/HCPCS: 99283

== ENCOUNTER → 2018-09-23 12:18 | Outpatient (CLI) | payer OTHER, SELFPAY ==
[2018-09-23 14:48] LABS: Add Manual Diff / Slide Review NO; Basophils Absolute Auto 0 /uL (0-100); Eosinophils Absolute Auto 100 /uL (0-450); Eosinophils Percent Auto 2.1 % (2-4); Hematocrit 37.2 % (36-46); Hemoglobin 12.8 g/dL (12.0-16.0); Lymphocytes Absolute Auto 1400 /uL (1100-4500); Lymphocytes Percent Auto 33.5 % (25-40); Mean Corpuscular HGB Conc 34.3 % (30-36); Mean Corpuscular Hemoglobin 31.2 PG (26-34); Mean Corpuscular Volume 90.8 fL (80-100); Monocytes Absolute Auto 300 /uL (0-900); Monocytes Percent Auto 7.1 % (3-14); Neutrophils Absolute Auto 2400 /uL (1500-7000); Neutrophils Percent Auto 56.3 % (50-75); Platelet Count 204 X10^3/uL (150-400); Red Cell Distribution Width 14.7 % (11.6-14.8); White Blood Cell Count 4.2 X10^3/uL (4.5-11.0)
== END ==
PROVIDERS: Family Provider Internal Medicine; PCP Internal Medicine; Visit Provider Psychiatry & Neurology Neurology
DX: R89.9 Unspecified abnormal finding in specimens from other organs, systems and tissues (principal)
CPT/HCPCS: 36415; 85025

== ENCOUNTER → 2018-10-01 08:31 | Outpatient (CLI) | payer OTHER, SELFPAY ==
--- NOTE | 2018-10-01 | DI.MRI.S_ITS ---
PROCEDURE: MR THORACIC SPINE WO/W CON INDICATIONS: MS TECHNIQUE: Noncontrast sagittal T1 spin echo and T2 fast spin echo, sagittal STIR, axial T1 and T2 fast spin echo through the thoracic spine. After the administration of contrast, axial and sagittal T1 spin echo with fat saturation through the thoracic spine. COMPARISON: [facility], MR, MR CERVICAL SPINE WO/W CON, 10/01/2018, 9:04. [facility], MR, MR HEAD/BRAIN WO/W CON, 10/01/2018, 8:41. [facility], MR, MR THORACIC SPINE WO/W CON, 10/24/2017, 9:53. FINDINGS: Image quality: Excellent. Alignment and curvature: There is normal bony alignment. Marrow: Marrow is of normal overall signal. Scattered foci are seen, which are hyperintense on T1-weighted and T2-weighted imaging, which are most consistent with benign vertebral body hemangiomas. No acute vertebral body compression fractures. Spinal cord: Visualized spinal cord is of normal signal and size, without abnormal enhancement. Paraspinous soft tissues: No paravertebral masses or abnormal enhancement. Miscellaneous: Lower cervical spine fixation hardware is partially seen. Age-appropriate bony degenerative changes are seen. Central canal and foramina appear widely patent at all scanned levels. IMPRESSION: No erosions can be seen within the thoracic spinal cord to suggest multiple sclerosis plaques. No abnormal enhancement. Dictated by: Darinel Milner M.D. on 10/01/2018 at 11:07 Approved by: Darinel Milner M.D. on 10/01/2018 at 11:09
--- NOTE | 2018-10-01 | DI.MRI.S_ITS ---
PROCEDURE: MR CERVICAL SPINE WO/W CON INDICATIONS: MS TECHNIQUE: Noncontrast sagittal T1 spin echo and T2 fast spin echo, sagittal STIR, sagittal PD fast spin echo, foraminal oblique sagittal T2 fast spin echo, axial gradient echo and T2 fast spin echo through the cervical spine. After the administration of contrast, sagittal and axial T1 spin echo with fat saturation through the cervical spine. COMPARISON: [facility], MR, C-SPINE W&WO CONTRAST, 01/10/2015, 7:35. [facility], MR, C-SPINE W&WO CONTRAST, 05/10/2016, 8:46. [facility], MR, MR THORACIC SPINE WO/W CON, 10/01/2018, 9:24. [facility], MR, MR CERVICAL SPINE WO/W CON, 10/24/2017, 9:29. [facility], MR, MR HEAD/BRAIN WO/W CON, 10/01/2018, 8:41. FINDINGS: Image quality: Diagnostic, with note made of motion artifact. Alignment and curvature: There is normal bony alignment. Marrow: Marrow demonstrates normal overall signal. Spinal cord: At the C5-C6 level, there is again seen a focus of increased T2 hyperintensity along the posterior aspect of the spinal cord. This focus is not as intense on the current study compared to the prior. Within the left aspect of the C7 level, there is a stable focus of increased T2 weighted hyperintensity, as on series 5 image 30. No new lesions are seen. No abnormal enhancement can be seen. Visualized spinal cord is normal in size. No cerebellar tonsillar herniation. Anterior fusion changes are seen C5-C7. Disc spacers are seen at C5-C6 and C6-C7. There is associated susceptibility artifact. Paraspinous soft tissues: No paravertebral masses or suspicious enhancement. C2-C3: The disc height is well-preserved. Loss of disc signal is seen at this level. [id number] facet hypertrophy is seen. There is mild to moderate left-sided and no right-sided neural foraminal narrowing seen. No central canal narrowing is seen. When comparison is made with the prior examination, these findings are similar. C3-C4: Mild loss of disc height is seen. Loss of disc signal is seen. Mild to moderate disc osteophyte complex is seen. Moderate facet joint hypertrophy is seen. Moderate bilateral neural foraminal narrowing is seen. Minimal to mild central canal narrowing is seen. When comparison is made with the prior examination, these findings are similar. C4-C5: The disc height and disc signal are relatively well-preserved and Moderate generalized disc osteophyte complex is seen. There is mild right-sided and moderate to prominent left-sided facet hypertrophy seen. There is mild to moderate bilateral neural foraminal narrowing seen, left worse than right. Minimal central canal narrowing is seen. Stable from the prior study. C5-C6: There are postoperative changes at this level. There is mild to moderate left-sided and no right-sided neural foraminal seen. No significant central canal narrowing is seen. When comparison is made with the prior examination, these findings are similar. C6-C7: Postoperative changes can be seen anteriorly at this level. Moderate disc bulge is seen, with a central/left disc osteophyte protrusion seen. There is a moderate left-sided and minimal right-sided neural foraminal narrowing seen. Moderate central canal narrowing is seen, with associated mass effect upon the ventral spinal cord. When comparison is made with the prior examination, these findings are similar. C7-T1: No significant abnormality is seen. IMPRESSION: White matter lesions are again seen at C5-C6 and at C7. The C5-C6 lesion is less conspicuous is current study than on the prior. No abnormal enhancement can be seen. Postoperative and degenerative changes are seen, which are similar to the prior examination. Dictated by: Darinel Milner M.D. on 10/01/2018 at 10:56 Approved by: Darinel Milner M.D. on 10/01/2018 at 11:07
--- NOTE | 2018-10-01 | DI.MRI.S_ITS ---
PROCEDURE: MR HEAD/BRAIN WO/W CON INDICATIONS: MS TECHNIQUE: Noncontrast axial T1 spin echo, axial T2 fast spin echo, sagittal and axial FLAIR, coronal T2 fast spin echo, axial gradient echo, axial diffusion and ADC through the brain. After the administration of contrast, axial and coronal 3D VIBE or T1 spin echo with fat saturation through the brain. COMPARISON: [facility], MR, BRAIN W&WO CONTRAST, 03/28/2017, 17:18. [facility], MR, BRAIN W&WO CONTRAST, 05/10/2016, 8:22. [facility], MR, MR HEAD/BRAIN WO/W CON, 10/24/2017, 9:13. FINDINGS: Image quality: Excellent. CSF Spaces: Basal cisterns are patent. No extra-axial fluid collections. Ventricles are normal in size and shape. Brain: No midline shift. No intracranial bleeds or masses. No abnormal intracranial enhancement. The brainstem appears normal. Diffusion-weighted images demonstrate no acute ischemic insults. No areas of encephalomalacia. Punctate foci of increased T2 signal in the periventricular, corpus callosal and frontal juxtacortical white matter tracts are stable in size contour and number compared to 10/24/17. White matter lesions have imaging characteristics compatible with reported history of multiple sclerosis. No postcontrast enhancement associated with the multiple sclerosis plaques. Normal intravascular flow voids are present. Skull and face: Calvarial marrow is normal in signal. Orbits appear normal. Sinuses: Mucosal thickening noted in the posterior ethmoid air cells bilaterally. Scattered fluid noted in the dependent portions of the left masseter cells. The right mastoid air cells are clear. IMPRESSION: 1. Stable examination compared to 10/24/2017. 2. Multiple periventricular, subcortical and corpus callosal white matter lesions compatible multiple sclerosis. Multiple sclerosis plaques are stable in size, contour and number compared to prior examinations. 3. No abnormal postcontrast enhancement. Dictated by: Mabel Clements MD, PhD on 10/01/2018 at 16:33 Approved by: Mabel Clements MD, PhD on 10/01/2018 at 16:40
== END ==
PROVIDERS: Family Provider Internal Medicine; PCP Internal Medicine; Visit Provider Psychiatry & Neurology Neurology
DX: G35 Multiple sclerosis (principal)
CPT/HCPCS: 70553; 72156; 72157; A9579

== ENCOUNTER → 2018-11-08 09:59 | Outpatient (CLI) | payer OTHER, SELFPAY ==
[2018-11-08 11:51] LABS: Alanine Aminotransferase 33 IU/L (9-52); Aspartate Aminotransferase 27 IU/L (14-36); Cholesterol 190 mg/dL (140-199); HDL Cholesterol 53 mg/dL (40-60); LDL Cholesterol Calculated 96 mg/dL (<100); Triglycerides 205 mg/dL (35-150)
== END ==
PROVIDERS: PCP Internal Medicine; Visit Provider Internal Medicine
DX: E78.5 Hyperlipidemia, unspecified (principal)
CPT/HCPCS: 36415; 80061; 84450; 84460

== ENCOUNTER → 2018-11-13 15:22 | Outpatient (CLI) | payer OTHER, SELFPAY | PROVIDERS: PCP Internal Medicine ==

== ENCOUNTER → 2019-04-04 08:46 | Outpatient (CLI) | payer OTHER, SELFPAY ==
[2019-04-04 09:57] LABS: Alanine Aminotransferase 147 IU/L (<35); Aspartate Aminotransferase 101 IU/L (14-36); Blood Urea Nitrogen 20 mg/dL (7-17); Calcium 9.6 mg/dL (8.4-10.2); Carbon Dioxide 29 mmol/L (22-32); Chloride 100 mmol/L (98-107); Cholesterol 224 mg/dL (140-199); Estimated Glomerular Filt Rate > 60.0 mL/min (>60); Glucose 263 mg/dL (70-100); HDL Cholesterol 57 mg/dL (40-60); HEMOLYSIS < 15 (0-50); LDL Cholesterol Calculated 124 mg/dL (<100); Potassium 4.7 mmol/L (3.4-5.1); Sodium 138 mmol/L (137-145); Triglycerides 216 mg/dL (35-150)
== END ==
PROVIDERS: PCP Internal Medicine; Referring Provider Internal Medicine; Visit Provider Internal Medicine
DX: E11.9 Type 2 diabetes mellitus without complications (principal); E78.5 Hyperlipidemia, unspecified
CPT/HCPCS: 36415; 80048; 80061; 83036; 84450; 84460

== ENCOUNTER → 2019-05-02 09:01 | Outpatient (CLI) | payer OTHER, SELFPAY ==
[2019-05-02 10:44] LABS: Alanine Aminotransferase 40 IU/L (<35); Aspartate Aminotransferase 33 IU/L (14-36); HDL Cholesterol 49 mg/dL (40-60); Triglycerides 272 mg/dL (35-150)
[2019-05-02 10:55] LABS: Cholesterol 347 mg/dL (140-199); LDL Cholesterol Calculated 244 mg/dL (<100)
== END ==
PROVIDERS: PCP Internal Medicine; Referring Provider Internal Medicine; Visit Provider Internal Medicine
DX: E78.5 Hyperlipidemia, unspecified (principal)
CPT/HCPCS: 36415; 80061; 84450; 84460

== ENCOUNTER → 2019-06-20 07:56 | Outpatient (CLI) | payer OTHER, SELFPAY ==
[2019-06-20 09:11] LABS: Alanine Aminotransferase 27 IU/L (<35); Aspartate Aminotransferase 31 IU/L (14-36); Cholesterol 194 mg/dL (140-199); HDL Cholesterol 45 mg/dL (40-60); LDL Cholesterol Calculated 105 mg/dL (<100); Triglycerides 219 mg/dL (35-150)
== END ==
PROVIDERS: PCP Internal Medicine; Referring Provider Internal Medicine; Visit Provider Internal Medicine
DX: E78.5 Hyperlipidemia, unspecified (principal)
CPT/HCPCS: 36415; 80061; 84450; 84460

== ENCOUNTER → 2019-08-20 14:34 | Outpatient (CLI) | payer OTHER, SELFPAY ==
--- NOTE | 2019-08-20 | DI.MG.S_ITS ---
BILATERAL DIGITAL SCREENING MAMMOGRAM 3D/2D WITH CAD: 08/20/2019 CLINICAL: Routine screening. Comparison is made to exams dated: 07/16/2018 mammogram, 06/23/2018 mammogram, and 06/08/2017 mammogram - [facility]. There are scattered fibroglandular elements in both breasts. Current study was also evaluated with a Computer Aided Detection (CAD) system. No significant masses, calcifications, or other findings are seen in either breast. There has been no significant interval change. IMPRESSION: NEGATIVE There is no mammographic evidence of malignancy. A 1 year screening mammogram is recommended. This exam was interpreted at Station ID: [id number]. NOTE: For mammograms, a report in lay terms will be sent to the patient. Approximately 15% of breast malignancies will not be visualized mammographically. In the management of a palpable breast mass, a negative mammogram must not discourage biopsy of a clinically suspicious lesion. Electronically Signed By: Emeterio he/martine:08/20/2019 17:24:09 letter sent: Normal Exam ACR BI-RADS Category 1: Negative [id number]
== END ==
PROVIDERS: PCP Internal Medicine; Referring Provider Internal Medicine; Visit Provider Internal Medicine
DX: Z12.31 Encounter for screening mammogram for malignant neoplasm of breast (principal)
CPT/HCPCS: 77063; 77067

== ENCOUNTER → 2019-10-26 16:02 | Outpatient (CLI) | payer OTHER, SELFPAY ==
--- NOTE | 2019-10-26 16:05 | DI.MRI.S_ITS ---
PROCEDURE: MR THORACIC SPINE WO/W CON INDICATIONS: MS TECHNIQUE: Noncontrast sagittal T1 spin echo and T2 fast spin echo, sagittal STIR, axial T1 and T2 fast spin echo through the thoracic spine. After the administration of contrast, axial and sagittal T1 spin echo with fat saturation through the thoracic spine. COMPARISON: [facility], MR, MR THORACIC SPINE WO/W CON, 10/01/2018, 9:24. [facility], MR, MR HEAD/BRAIN WO/W CON, 10/26/2019, 16:16. [facility], MR, MR CERVICAL SPINE WO/W CON, 10/26/2019, 16:33. [facility], MR, MR THORACIC SPINE WO/W CON, 10/24/2017, 9:53. FINDINGS: Image quality: Diagnostic, with note made of motion artifact. Alignment and curvature: There is normal bony alignment. Marrow: Marrow is of normal overall signal. Scattered foci are seen, which are hyperintense on T1-weighted and T2-weighted imaging, which are most consistent with benign vertebral body hemangiomas. The most prominent of these can be seen within the T12 level. No acute vertebral body compression fractures. Spinal cord: Visualized spinal cord is of normal signal and size, without abnormal enhancement. Paraspinous soft tissues: No paravertebral masses or abnormal enhancement. Miscellaneous: Lower cervical spine fixation hardware is seen. Mild, age-appropriate thoracic spine degenerative changes are noted. Central canal and foramina appear widely patent at all scanned levels. IMPRESSION: No thoracic cord white matter lesions are seen to suggest multiple sclerosis plaques. No abnormal enhancement is seen. Dictated by: Darinel Milner M.D. on 10/26/2019 at 18:09 Approved by: Darinel Milner M.D. on 10/26/2019 at 18:11
--- NOTE | 2019-10-26 16:05 | DI.MRI.S_ITS ---
PROCEDURE: MR HEAD/BRAIN WO/W CON INDICATIONS: MS TECHNIQUE: Noncontrast sagittal and axial FLAIR, axial and coronal T2 fast spin echo, axial VIBE, axial gradient echo, axial diffusion and ADC through the brain. After the administration of contrast, axial and coronal VIBE with fat saturation through the brain. COMPARISON: [facility], MR, BRAIN W&WO CONTRAST, 03/28/2017, 17:18. [facility], MR, BRAIN W&WO CONTRAST, 05/10/2016, 8:22. [facility], MR, BRAIN W&WO CONTRAST, 01/10/2015, 7:11. [facility], CT, HEAD WITHOUT CONTRAST, 03/21/2017, 10:31. [facility], MR, MR THORACIC SPINE WO/W CON, 10/26/2019, 16:49. [facility], MR, MR CERVICAL SPINE WO/W CON, 10/26/2019, 16:33. [facility], MR, MR HEAD/BRAIN WO/W CON, 10/01/2018, 8:41. FINDINGS: Image quality: Excellent. CSF spaces: Ventricles are normal in size and shape. Basal cisterns are patent. No extra-axial fluid collections. Brain: A few scattered T2 hyperintense white matter lesions are seen, including within the periventricular and deep white matter. A few juxtacortical lesions can be seen. A few of the periventricular lesions demonstrate a perpendicular orientation to the lateral ventricles. There is involvement of the undersurface of the corpus callosum. No definite involvement of the brainstem can be seen. No definite cerebellar lesions are detected. A few of the larger lesions demonstrate decreased signal on T1 weighted images. No significant progression can be seen compared to the 10/01/2018 MRI examination. No abnormal enhancement can be seen. No intracranial bleeds or mass effects. Klein-white matter interface appears intact. No abnormal intracranial enhancement. Diffusion weighted images show no acute ischemic insults. Brainstem appears normal. Normal intravascular flow voids are present. Skull and face: Calvarial marrow signal is normal. Orbits appear normal. Sinuses: Sinuses and mastoids are clear. Mild rightward nasal septal deviation is incidentally noted. IMPRESSION: Stable white matter lesions are seen, which are consistent with the given clinical history of multiple sclerosis. No abnormal enhancement is seen. Dictated by: Darinel Milner M.D. on 10/26/2019 at 17:39 Approved by: Darinel Milner M.D. on 10/26/2019 at 17:46
--- NOTE | 2019-10-26 16:05 | DI.MRI.S_ITS ---
PROCEDURE: MR CERVICAL SPINE WO/W CON INDICATIONS: MS TECHNIQUE: Noncontrast sagittal T1 spin echo and T2 fast spin echo, sagittal STIR, sagittal PD fast spin echo, foraminal oblique sagittal T2 fast spin echo, axial gradient echo or T2 fast spin echo through the cervical spine. After the administration of contrast, sagittal and axial T1 spin echo with fat saturation through the cervical spine. COMPARISON: [facility], MR, MR CERVICAL SPINE WO/W CON, 10/24/2017, 9:29. [facility], MR, C-SPINE W&WO CONTRAST, 03/28/2017, 17:18. [facility], MR, MR CERVICAL SPINE WO/W CON, 10/01/2018, 9:04. [facility], MR, MR HEAD/BRAIN WO/W CON, 10/26/2019, 16:16. [facility], MR, MR THORACIC SPINE WO/W CON, 10/26/2019, 16:49. [facility], MR, C-SPINE W&WO CONTRAST, 05/10/2016, 8:46. FINDINGS: Image quality: There is artifact associated with the metallic hardware. Alignment and curvature: There is straightening of the normal cervical lordosis. No focal AP alignment abnormality is seen. Marrow: Marrow demonstrates normal overall signal. Spinal cord: Visualized spinal cord is normal in size. There is again seen a T2 hyperintense focus within the posterior aspect of the C5-C6 level, as on series 5, image 7. This is not significantly changed compared to the prior examination. This lesion does not enhance. No new lesions can be seen. No suspicious intramedullary enhancement. No cerebellar tonsillar herniation. Paraspinous soft tissues: No paravertebral masses or suspicious enhancement. Anterior fixation hardware is seen C5 through C7. There is associated susceptibility artifact. Multiple levels of cervical spine degenerative change are seen, which are considered to be similar to the 2019 examination. IMPRESSION: There is a stable T2 hyperintense focus seen within the posterior aspect of the C5-C6 level, without enhancement. The appearance is consistent with the given clinical history of multiple sclerosis. No new white matter lesions are seen. Dictated by: Darinel Milner M.D. on 10/26/2019 at 18:04 Approved by: Darinel Milner M.D. on 10/26/2019 at 18:08
== END ==
PROVIDERS: PCP Internal Medicine; Referring Provider Psychiatry & Neurology Neurology; Visit Provider Psychiatry & Neurology Neurology
DX: G35 Multiple sclerosis (principal)
CPT/HCPCS: 70553; 72156; 72157; A9579

== ENCOUNTER → 2019-11-03 16:54 | Outpatient (CLI) | payer OTHER, SELFPAY ==
[2019-11-03 19:02] LABS: Vitamin D 25 Hydroxy (D3) 57.5 ng/mL (30.0-100.0)
== END ==
PROVIDERS: PCP Internal Medicine; Referring Provider Psychiatry & Neurology Neurology; Visit Provider Psychiatry & Neurology Neurology
DX: G35 Multiple sclerosis (principal)
CPT/HCPCS: 36415; 82306; 86711

== ENCOUNTER → 2019-12-18 09:01 | Outpatient (CLI) | payer OTHER, SELFPAY ==
[2019-12-21 07:17] LABS: COVID19 Sendout Not Detected (Not Detect)
== END ==
PROVIDERS: PCP Internal Medicine; Visit Provider Physician Assistant
DX: Z11.59 Encounter for screening for other viral diseases (principal)
CPT/HCPCS: 87635

== ENCOUNTER 2019-12-21 06:30 | Day surgery (SDC) | payer OTHER, SELFPAY ==
[2019-12-21 07:21] VITALS: BP 116/72; PULSE 64; RESP 12; TEMP 36.4; O2SAT 98; BMI 27.9
[2019-12-21] MEDS: LACTATED RINGERS 1,000 ML 200 ML IV (07:27)
--- NOTE | 2019-12-21 07:50 | P.HP_ITS ---
History of Present Illness History of Present Illness Date Patient Seen: 12/21/19 Time Patient Seen: 07:50 Chief complaint: [facility] Narrative: The patient presents for colorectal sreening. She has had previous colonoscopy, most recently [address] [facility] which demonstrated 2 benign polyps. No personal or family history of colon cancer. On further history denies any recent gastrointestinal symptoms. No nausea, vomiting, abdominal pain, loss of appetite, unexplained weight loss, change in bowel habits, diarrhea, constipation, melena, hematochezia, or bright red blood per rectum. Patient History Medical History Diabetes (Acute) Multiple sclerosis (Acute) Surgical History History of 2 sections (Resolved) History of cholecystectomy (Chronic) History of hip surgery (Resolved) Family & Social History Social History: household members spouse Tobacco & Substance use: Smoking Status Never smoker alcohol intake current alcohol intake frequency a few times a week Substance Use Type does not use Meds Home Medications and Allergies Home Medications Medication Instructions Recorded Confirmed Type aspirin 81 mg PO QDAY #0 02/09/16 12/21/19 History cholecalciferol (vitamin D3) 1 tab PO QDAY #0 02/09/16 12/21/19 History [Vitamin D3] multivitamin [Multiple Vitamins] 1 tab PO QDAY #0 02/09/16 12/21/19 History fluoxetine 20 mg capsule 40 mg PO DAILY 08/05/18 12/21/19 History empagliflozin [Jardiance] 25 mg PO DAILY 12/21/19 12/21/19 History glipizide 10 mg PO BID 12/21/19 12/21/19 History rosuvastatin 20 mg DAILY 12/21/19 12/21/19 History Allergies Allergy/AdvReac Type Severity Reaction Status Date / Time Sulfa (Sulfonamide Allergy Intermediate Hives Verified 12/21/19 07:00 Antibiotics) [SULFA (SULFONAMIDE ANTIBIOTICS)] Review of Systems Review of Systems Narrative: A 10 point review of systems is negative except as noted in the HPI Exam Vital Signs (past 8 hours): - 12/21/19 07:21 Temperature 97.5 F L Pulse Rate 64 Respiratory Rate 12 Blood Pressure 116/72 Pulse Oximetry 98 Oxygen Delivery Method Room Air Narrative Exam Narrative: General-no acute distress, well nourished adult female HEENT-moist mucous membranes, no scleral icterus Neck-supple, no lymphadenopathy Chest- non labored respirations, clear to auscultation bilaterally Cardiac-regular rate no peripheral edema Abdomen-soft, nontender, non distended Extremities-warm, well perfused Neurological-alert and oriented, no focal deficits Assessment & Plan Assessment & Plan narrative: The patient requires colorectal screening and colonoscopy is recommended. Technical details were discussed. Risks, benefits, alternatives explained. Risks including but not limited to myocardial infarction, aspiration, bleeding, pain, missed lesion, incomplete examination, need for further radiographic studies, colonic perforation, and need for major a bdominal surgery were discussed. All questions were answered to their satisfaction, and they are in agreement with this plan.
[2019-12-21] MEDS: MIDAZOLAM 5 MG/5 ML VIAL IV (07:58)
[2019-12-21] MEDS: fentaNYL 250 MCG/5 ML INJ IV (07:58)
--- NOTE | 2019-12-21 08:18 | PM.OP.ENDO ---
Operative Date/Time/Diagnoses Date of procedure: 12/21/19 Time of procedure: 08:18 Pre-op diagnosis: History polyps, Screening colonoscopy Post-op diagnosis: same Procedure & Clinicians Study performed: Colonoscopy Same procedure as scheduled: Yes Indications: 59-year-old female history of polyps here for routine screening Surgeon: Jose Malik Procedure Notes SCOAP/Timeout: Performed Procedure in detail: Patient placed in left lateral recumbent position. Time out was performed. Procedural sedation was administered with Versed and Fentanyl. Examination began with a thorough inspection of the perianal area there was no evidence of fissures, fistulae, external hemorrhoids or cutaneous malignancy. The colonoscopy scope was then placed into the rectum the the lumen was insufflated with air. The scope was carefully advanced forward. Ultimately the cecum was intubated and confirmed by identification of the ileocecal valve, the appendiceal orifice and the confluence of the taenia. The scope was then slowly withdrawn examining colon thoroughly in all directions. In the rectum the rectal columns were identified and retroflexion of the scope was performed for inspection of the distal rectum and anal canal. The colonoscopy was notable for the followin. Quality of the preparation-excellent 2. No masses or polyps 3. Grade 1 internal hemorrhoids Scope withdrawal time: 7 Sedation minutes: 18 Findings: internal hemorrhoids Specimen(s): none sent Complications: none Impression: Normal colonoscopy Post-procedure Recommendations: Colonscopy in 10 years Disposition: same day surgery
[2019-12-21 08:20] VITALS: BP 108/68; PULSE 67; RESP 12; TEMP 37.3; O2SAT 96
[2019-12-21 08:25] VITALS: BP 114/79; PULSE 79; RESP 13; O2SAT 97
[2019-12-21 08:30] VITALS: BP 114/74; PULSE 69; RESP 20; TEMP 37.2; O2SAT 97
[2019-12-21 08:37] VITALS: BP 107/76; PULSE 70; RESP 16; O2SAT 97
[2019-12-21 08:38] VITALS: BP 120/72; PULSE 69; RESP 16; TEMP 37.2; O2SAT 98
== END 2019-12-21 09:00 | disposition home or self-care (01) ==
PROVIDERS: PCP Internal Medicine; Referring Provider Internal Medicine; Visit Provider Surgery
PROC: 0DJD8ZZ Inspection of Lower Intestinal Tract, Via Natural or Artificial Opening Endoscopic (ICD-10-PCS; CPT 45378; principal; 2019-12-21 07:45)
DX: Z12.11 Encounter for screening for malignant neoplasm of colon (principal); Z86.010 Personal history of colon polyps; G35 Multiple sclerosis; E11.9 Type 2 diabetes mellitus without complications; Z79.84 Long term (current) use of oral hypoglycemic drugs; K64.0 First degree hemorrhoids
CPT/HCPCS: 45378; 99152; J2250; J3010

== ENCOUNTER → 2019-12-29 12:23 | Outpatient (CLI) | payer OTHER, SELFPAY ==
[2019-12-29 12:46] LABS: COVID19 -Nasal RAPID Negative (Negative)
== END ==
PROVIDERS: PCP Internal Medicine; Visit Provider Nurse Practitioner
DX: Z03.818 Encounter for observation for suspected exposure to other biological agents ruled out (principal)
CPT/HCPCS: 87635

== ENCOUNTER → 2020-01-23 09:34 | Outpatient (CLI) | payer OTHER, SELFPAY ==
[2020-01-23 10:46] LABS: Alanine Aminotransferase 24 IU/L (<35); Albumin 4.2 g/dL (3.5-5.0); Albumin Globulin Ratio 1.4 (1.0-2.8); Alkaline Phosphatase 69 U/L (38-126); Aspartate Aminotransferase 26 IU/L (14-36); BUN Creatinine Ratio 22.1 (6-22); Bilirubin Total 0.4 mg/dL (0.2-1.3); Blood Urea Nitrogen 17 mg/dL (7-17); Calcium 9.3 mg/dL (8.4-10.2); Carbon Dioxide 31 mmol/L (22-32); Chloride 104 mmol/L (98-107); Cholesterol 167 mg/dL (140-199); Estimated Glomerular Filt Rate > 60.0 mL/min (>60); Glucose 177 mg/dL (80-110); HDL Cholesterol 54 mg/dL (40-60); HEMOLYSIS < 15 (0-50); LDL Cholesterol Calculated 82 mg/dL (<100); Potassium 4.5 mmol/L (3.4-5.1); Sodium 139 mmol/L (137-145); Total Protein 7.2 g/dL (6.3-8.2); Triglycerides 155 mg/dL (35-150)
== END ==
PROVIDERS: PCP Internal Medicine; Referring Provider Internal Medicine; Visit Provider Internal Medicine
DX: E78.5 Hyperlipidemia, unspecified (principal)
CPT/HCPCS: 36415; 80053; 80061

== ENCOUNTER → 2020-02-18 16:13 | Outpatient (CLI) | payer OTHER, SELFPAY ==
[2020-02-18] MEDS: COVID-19 VACC(MODERNA-1)/PF 100 MCG/0.5 ML VIAL IM (16:19)
== END ==
PROVIDERS: PCP Internal Medicine; Visit Provider Internal Medicine
DX: Z23 Encounter for immunization (principal)
CPT/HCPCS: 0011A; 91301

== ENCOUNTER → 2020-03-16 15:05 | Outpatient (CLI) | payer OTHER, SELFPAY ==
[2020-03-16] MEDS: COVID-19 VACC #2, MRNA(MOD) 100 MCG/0.5 ML VIAL IM (15:11)
== END ==
PROVIDERS: PCP Internal Medicine; Visit Provider Internal Medicine
DX: Z23 Encounter for immunization (principal)
CPT/HCPCS: 0012A; 91301

== ENCOUNTER → 2020-04-18 10:46 | Outpatient (CLI) | payer OTHER, SELFPAY ==
[2020-04-18 12:18] LABS: Add Manual Diff / Slide Review NO; Basophils Absolute Auto 0 /uL (0-100); Basophils Percent Auto 0.9 % (0-2); Eosinophils Absolute Auto 100 /uL (0-450); Hematocrit 39.1 % (36-46); Hemoglobin 13.6 g/dL (12.0-16.0); Lymphocytes Absolute Auto 900 /uL (1100-4500); Lymphocytes Percent Auto 20.6 % (25-40); Mean Corpuscular HGB Conc 34.7 % (30-36); Mean Corpuscular Hemoglobin 30.6 PG (26-34); Mean Corpuscular Volume 88.3 fL (80-100); Monocytes Absolute Auto 300 /uL (0-900); Monocytes Percent Auto 7.5 % (3-14); Neutrophils Absolute Auto 3100 /uL (1500-7000); Platelet Count 173 X10^3/uL (150-400); Red Blood Cell Count 4.43 X10^6/uL (4.0-5.2); Red Cell Distribution Width 15.4 % (11.6-14.8); White Blood Cell Count 4.6 X10^3/uL (4.5-11.0)
[2020-04-18 12:19] LABS: Hemoglobin A1C% w Est Avg Glu 7.5 % (4.0-6.0)
[2020-04-18 12:33] LABS: Albumin 4.4 g/dL (3.5-5.0); BUN Creatinine Ratio 20.4 (6-22); Blood Urea Nitrogen 19 mg/dL (7-17); Calcium 10.1 mg/dL (8.4-10.2); Carbon Dioxide 29 mmol/L (22-32); Chloride 102 mmol/L (98-107); Estimated Glomerular Filt Rate > 60.0 mL/min (>60); Glucose 247 mg/dL (80-110); HEMOLYSIS < 15 (0-50); Phosphorous 4.1 mg/dL (2.8-4.1); Potassium 4.4 mmol/L (3.4-5.1); Sodium 138 mmol/L (137-145)
[2020-04-18 13:02] LABS: Thyroid Stimulating Hormone 3.56 uIU/mL (0.47-4.68)
[2020-04-18 16:19] LABS: Creatinine Urine Random 52.8 mg/dL
[2020-04-18 16:24] LABS: Microalbumin Urine Random < 0.6 mg/dL (0-1.6)
== END ==
PROVIDERS: PCP Internal Medicine; Referring Provider Internal Medicine Endocrinology, Diabetes & Metabolism; Visit Provider Internal Medicine Endocrinology, Diabetes & Metabolism
DX: E11.65 Type 2 diabetes mellitus with hyperglycemia (principal)
CPT/HCPCS: 36415; 80069; 82043; 82570; 83036; 84443; 85025

== ENCOUNTER 2020-06-22 17:13 | Emergency (ER) | payer OTHER, SELFPAY ==
[2020-06-22 17:21] VITALS: BP 115/63; PULSE 64; RESP 18; TEMP 36.6; O2SAT 97; BMI 25.9
[2020-06-22] MEDS: methylPREDNISolone 1,000 MG in SODIUM CHLORIDE 0.9% 250 ML 258 ML IV (18:20)
--- NOTE | 2020-06-22 18:25 | ED.NEUROSD ---
HPI - Neuro Symptoms/Deficit General Chief Complaint: Neuro Symptoms/Deficit Stated Complaint: exacerbation of MS Time Seen by Provider: 06/22/20 17:53 Source: patient Mode of arrival: Ambulatory History of Present Illness HPI Narrative: 59-year-old woman with a history of multiple sclerosis followed by Dr. bond with a primary care physician being Dr. Padron. She has been having increasing MS symptoms of the last 2 and half weeks. Initially started with increased right face numbness and and right eye droop and then began having some thoracic spine tingling. Over the ensuing 2 weeks she has had a slight improvement in the facial tingling but the back symptoms are getting worse. In consultation with Dr. bond he recommended that she have a course of 3 days of IV Solu-Medrol, 1 g daily. She presents to the ER for the 1st of the 3 doses. She does note that she had bit of nausea and dizziness last night but that has not continued. She denies fevers, chills, cough, abdominal pain, vomiting or diarrhea. On Anticoagulants: No Related Data Home Medications Medication Instructions Recorded Confirmed aspirin 81 mg PO QDAY #0 02/09/16 12/21/19 cholecalciferol (vitamin D3) 1 tab PO QDAY #0 02/09/16 12/21/19 [Vitamin D3] multivitamin [Multiple Vitamins] 1 tab PO QDAY #0 02/09/16 12/21/19 fluoxetine 20 mg capsule 40 mg PO DAILY 08/05/18 12/21/19 Jardiance 25 mg PO DAILY 12/21/19 12/21/19 glipizide 10 mg PO BID 12/21/19 12/21/19 rosuvastatin 20 mg DAILY 12/21/19 12/21/19 Allergies Allergy/AdvReac Type Severity Reaction Status Date / Time Sulfa (Sulfonamide Allergy Intermediate Hives Verified 12/21/19 07:00 Antibiotics) [SULFA (SULFONAMIDE ANTIBIOTICS)] Review of Systems Review of Systems Narrative: Remainder of complete review of systems is otherwise unremarkable except for that included in the HPI. Hematologic/Lymphatic On Anticoagulants: No Patient History Medical History (Updated 06/22/20 @ 18:32 by Katty Izquierdo MD) Diabetes Multiple sclerosis Surgical History History of 2 sections History of cholecystectomy History of hip surgery Social History household members: spouse Smoking Status: Never smoker alcohol intake: current Smoking Status: Never smoker alcohol intake frequency: a few times a week Substance Use Type: does not use Exam Narrative Exam Narrative: General: Healthy appearing, in no acute distress. Able to give a complete and coherent history. Well-nourished well-developed HEENT: Moist mucous membranes, normal sclera with reactive pupils, Respiratory: Lungs are clear to auscultation, no wheezing no rales no rhonchi. Full and symmetrical air movement Cardiac: Regular rate and rhythm no murmurs no bruits Abdomen: Soft, nontender, good bowel tones, no flank pain Skin: Warm and dry, no rashes Neurologic: Grossly neurologically intact with no obvious asymmetries or abnormalities, 4+ reflexes upper and lower extremities Extremities: No trauma, well perfused Psych: Cooperative, appropriate insight and affect Initial Vital Signs Initial Vital Signs: Vital Signs Temperature 97.9 F 06/22/20 17:21 Pulse Rate 64 06/22/20 17:21 Respiratory Rate 18 06/22/20 17:21 Blood Pressure 115/63 06/22/20 17:21 Pulse Oximetry 97 06/22/20 17:21 Course Orders Ordered: Discontinued Medications Methylprednisolone 1,000 mg/ (Sodium Chloride) 258 mls @ 258 mls/hr IV NOW ONE Stop: 06/22/20 18:59 Last Infusion: 06/22/20 19:37 Dose: 0 mls/hr Documented by: Admin: 06/22/20 18:20 Dose: 258 mls/hr Documented by: HEATHER Vital Signs Vital signs: Vital Signs - 8 hr 06/22/20 19:37 Pulse Rate 54 L Respiratory Rate 18 Blood Pressure 112/60 Pulse Oximetry 98 MDM - Neuro Symptoms/Deficit MDM Narrative Medical decision making narrative: 59-year-old woman with multiple sclerosis exacerbation. Given her 1st dose of 1 g of IV Solu-Medrol. Will leave her IV in place in anticipation of the 2nd dose tomorrow. Dr. bond office is working on trying to get her in to the infusion clinic and if that is not possible so return to the ER tomorrow afternoon for her 2nd infusion. Questions are answered and she is safe for home discharge Discharge Plan Departure Patient Disposition: Home Clinical Impression: Exacerbation of multiple sclerosis Instructions: Multiple Sclerosis -- Adult Activity Restrictions/Additional Instructions: Is thank you for coming in today You got your 1st dose of Solu-Medrol today. We have left your IV site in place to be used tomorrow. If you are unable to get into the infusion clinic, we will happily take care of you for your 2nd dose in the emergency department. If you do have any difficulty sleeping after the IV steroids, Benadryl can be helpful. I wish you the best Prescriptions: No Action fluoxetine [Prozac] 20 mg capsule 40 mg PO DAILY RF: 0 aspirin 81 MG tablet,delayed release (DR/EC) 81 mg PO QDAY Qty: 0 RF: 0 multivitamin [Multiple Vitamins] 1 EACH tablet 1 tab PO QDAY Qty: 0 RF: 0 cholecalciferol (vitamin D3) [Vitamin D3] 2,000 UNIT tablet 1 tab PO QDAY Qty: 0 RF: 0 glipizide 10 mg tablet extended release 24hr 10 mg PO BID RF: 0 rosuvastatin 20 mg tablet 20 mg DAILY RF: 0 Jardiance 25 mg tablet 25 mg PO DAILY RF: 0 Referrals: Christelle Padron MD [Primary Care Provider] -
[2020-06-22 19:37] VITALS: BP 112/60; PULSE 54; RESP 18; O2SAT 98
== END 2020-06-22 19:38 | disposition home or self-care (01) ==
PROVIDERS: Emergency Provider Emergency Medicine; PCP Internal Medicine
DX: G35 Multiple sclerosis (principal)
CPT/HCPCS: 96365; 99284; J2930

== ENCOUNTER → 2020-07-04 07:22 | Outpatient (CLI) | payer OTHER, SELFPAY ==
--- NOTE | 2020-07-04 07:26 | DI.MRI.S_ITS ---
PROCEDURE: MR HEAD/BRAIN WO/W CON INDICATIONS: Multiple sclerosis TECHNIQUE: Noncontrast sagittal and axial FLAIR, axial and coronal T2 fast spin echo, axial VIBE, axial gradient echo, axial diffusion and ADC through the brain. After the administration of contrast, axial and coronal VIBE with fat saturation through the brain. COMPARISON: [facility]ed With [facility], MR, MR HEAD/BRAIN WO/W CON, 10/01/2018, 8:41. Merged With [facility], MR, MR HEAD/BRAIN WO/W CON, 10/24/2017, 9:13. Merged With [facility], MR, BRAIN W&WO CONTRAST, 03/28/2017, 17:18. Merged With [facility], MR, BRAIN W&WO CONTRAST, 01/10/2015, 7:11. Outside Facility, , MRI HEAD W/WO CONTRAST, 10/04/2014, 10:53. Merged With [facility], MR, MR HEAD/BRAIN WO/W CON, 10/26/2019, 16:16. FINDINGS: Image quality: Excellent. CSF spaces: Ventricles are normal in size and shape. Basal cisterns are patent. No extra-axial fluid collections. Brain: Several foci of T2 weighted hyperintensity can be seen within the periventricular and deep white matter. A few of the periventricular lesions demonstrate a perpendicular orientation to the lateral ventricles. Several juxtacortical lesions can also be seen. There is involvement of the undersurface of the corpus callosum. A few of the larger lesions demonstrate decreased signal on T1 weighted images. No brainstem lesions are detected. No definite involvement of the cerebellum can be seen. No abnormal enhancement can be seen. Compared to 2019, the burden of white matter lesions is not significantly changed. No intracranial bleeds or mass effects. Klein-white matter interface appears intact. No abnormal intracranial enhancement. Diffusion weighted images show no acute ischemic insults. Brainstem appears normal. Normal intravascular flow voids are present. Skull and face: Calvarial marrow signal is normal. Orbits appear normal. Sinuses: Sinuses and mastoids are clear. IMPRESSION: Stable burden of a white matter lesions. The appearance is consistent with the given clinical history of multiple sclerosis. No abnormal enhancement can be seen. Dictated by: Darinel Milner M.D. on 07/04/2020 at 8:33 Approved by: Darinel Milner M.D. on 07/04/2020 at 8:39
== END ==
PROVIDERS: PCP Internal Medicine; Referring Provider Psychiatry & Neurology Neurology; Visit Provider Psychiatry & Neurology Neurology
DX: G35 Multiple sclerosis (principal)
CPT/HCPCS: 70553

== ENCOUNTER → 2020-07-28 12:48 | Outpatient (CLI) | payer OTHER, SELFPAY ==
--- NOTE | 2020-07-28 12:50 | DI.MRI.S_ITS ---
PROCEDURE: MR THORACIC SPINE WO CON INDICATIONS: Paresthesia of skin TECHNIQUE: Noncontrast sagittal T1 spine echo and T2 fast spin echo, sagittal STIR, axial T1 and T2 fast spin echo through the thoracic spine. COMPARISON: [facility], MR, MR THORACIC SPINE WO/W CON, 10/26/2019, 16:49. [facility], MR, MR THORACIC SPINE WO/W CON, 10/01/2018, 9:24. MR, MR THORACIC SPINE WO/W CON, 10/24/2017, 9:53. FINDINGS: Image quality: Excellent. Alignment and Curvature: There is normal bony alignment. Bone Marrow: Marrow is of normal overall signal. Increased T1/T2 signal at T12 consistent with hemangioma. No acute vertebral body compression fractures. Spinal Cord: Visualized spinal cord is normal in size and signal. Paraspinous Soft Tissues: No paravertebral masses. Miscellaneous: On axial images, central canal and foramina appear widely patent at all scanned levels. Minimal scattered multilevel disc bulges, unchanged. Multilevel disc desiccation. IMPRESSION: Stable interval exam demonstrating no visualized abnormal signal within the cord. Dictated by: Myrna Bowser M.D. on 07/28/2020 at 14:24 Approved by: Myrna Bowser M.D. on 07/28/2020 at 14:35
--- NOTE | 2020-07-28 12:50 | DI.MRI.S_ITS ---
PROCEDURE: MR CERVICAL SPINE WO CON INDICATIONS: Paresthesia of skin TECHNIQUE: Noncontrast sagittal T1 spin echo and T2 fast spin echo, sagittal STIR, foraminal oblique sagittal T2 fast spin echo, and axial gradient echo or T2 fast spin echo through the cervical spine. COMPARISON: [facility], MR, MR CERVICAL SPINE WO/W CON, 10/26/2019, 16:33. FINDINGS: Image quality: Portions of the spine are suboptimally evaluated secondary to metallic susceptibility artifact from fusion. Alignment and Curvature: Anterior fusion is present from C5 through C7. Alignment is unchanged with straightening of normal cervical lordosis. Bone Marrow: Marrow demonstrates normal overall signal. Spinal Cord: Visualized spinal cord has normal size. Previously identified intramedullary signal at C5-6 appears likely similar although not as well visualized, suspected to be secondary to technique. Similar appearance at C7. No cerebellar tonsillar herniation. Paraspinous Soft Tissues: No paravertebral masses. Prevertebral soft tissues are normal in thickness. Discs: Twbl-ss-uyrayovi desiccation is present throughout the cervical spine. C2-C3: Mild disc bulge without spinal stenosis. There is [id number] left foraminal narrowing with uncovertebral hypertrophy. No interval progression. C3-C4: Mild disc bulge with minimal to mild spinal stenosis. Moderate bilateral foraminal narrowing with uncovertebral hypertrophy, slightly progressive on the left. C4-C5: Mild disc bulge with minimal spinal stenosis. Zhhr-hr-[id number] bilateral foraminal narrowing with uncovertebral hypertrophy, unchanged. C5-C6: Postoperative changes without spinal stenosis. Ehbc-ww-triizgtz left foraminal narrowing with uncovertebral hypertrophy. No interval change. C6-C7: Post surgical changes are present. Disc bulge with central/left posterior paracentral protrusion is present, unchanged. There is moderate spinal stenosis with mass effect upon the ventral cord. Moderate left and minimal right foraminal narrowing, unchanged. C7-T1: No disc bulge, spinal stenosis or foraminal narrowing. No interval change. IMPRESSION: 1. Multilevel degenerative changes with minimal progression as above. 2. Suspected persistence of intramedullary cord high signal when compared to prior exam. It is less prominent on current study likely secondary to technique. However, decreased prominence of the lesion cannot be excluded. Dictated by: Myrna Bowser M.D. on 07/28/2020 at 14:01 Approved by: Myrna Bowser M.D. on 07/28/2020 at 14:22
== END ==
PROVIDERS: PCP Internal Medicine; Referring Provider Internal Medicine; Visit Provider Internal Medicine
DX: R20.2 Paresthesia of skin (principal); M47.812 Spondylosis without myelopathy or radiculopathy, cervical region
CPT/HCPCS: 72141; 72146

== ENCOUNTER → 2020-08-08 07:34 | Outpatient (CLI) | payer OTHER, SELFPAY ==
[2020-08-08 09:41] LABS: Add Manual Diff / Slide Review NO; Basophils Absolute Auto 0 /uL (0-100); Basophils Percent Auto 0.9 % (0-2); Eosinophils Absolute Auto 100 /uL (0-450); Eosinophils Percent Auto 1.4 % (2-4); Hematocrit 41.3 % (36-46); Hemoglobin 13.8 g/dL (12.0-16.0); Lymphocytes Absolute Auto 900 /uL (1100-4500); Mean Corpuscular HGB Conc 33.5 % (30-36); Mean Corpuscular Hemoglobin 30.1 PG (26-34); Mean Corpuscular Volume 89.6 fL (80-100); Monocytes Absolute Auto 400 /uL (0-900); Monocytes Percent Auto 7.9 % (3-14); Neutrophils Absolute Auto 3900 /uL (1500-7000); Neutrophils Percent Auto 72.8 % (50-75); Platelet Count 174 X10^3/uL (150-400); Red Cell Distribution Width 15.5 % (11.6-14.8); White Blood Cell Count 5.3 X10^3/uL (4.5-11.0)
[2020-08-08 10:13] LABS: Alanine Aminotransferase 21 IU/L (<35); Albumin 4.2 g/dL (3.5-5.0); Albumin Globulin Ratio 1.6 (1.0-2.8); Alkaline Phosphatase 70 U/L (38-126); Aspartate Aminotransferase 22 IU/L (14-36); Bilirubin Total 0.5 mg/dL (0.2-1.3); Blood Urea Nitrogen 20 mg/dL (7-17); Calcium 9.6 mg/dL (8.4-10.2); Carbon Dioxide 27 mmol/L (22-32); Chloride 105 mmol/L (98-107); Cholesterol 197 mg/dL (140-199); Estimated Glomerular Filt Rate > 60.0 mL/min (>60); Globulin 2.7 g/dL (1.7-4.1); Glucose 205 mg/dL (80-110); HDL Cholesterol 58 mg/dL (40-60); HEMOLYSIS < 15 (0-50); LDL Cholesterol Calculated 99 mg/dL (<100); Potassium 4.6 mmol/L (3.4-5.1); Sodium 140 mmol/L (137-145); Total Protein 6.9 g/dL (6.3-8.2); Triglycerides 198 mg/dL (35-150)
[2020-08-10 18:29] LABS: QuantiFERON Mitogen Value >10.00 IU/mL (.); QuantiFERON Nil Value <0.00 IU/mL (.); QuantiFERON TB Gold Plus Negative (Negative); QuantiFERON TB1 Ag Value <0.00 IU/mL (.); QuantiFERON TB2 Ag Value <0.00 IU/mL (.)
== END ==
PROVIDERS: PCP Internal Medicine; Referring Provider Psychiatry & Neurology Neurology; Visit Provider Psychiatry & Neurology Neurology
DX: Z51.81 Encounter for therapeutic drug level monitoring (principal); E78.5 Hyperlipidemia, unspecified
CPT/HCPCS: 36415; 80053; 80061; 85025; 86480

== ENCOUNTER → 2020-10-05 14:08 | Outpatient (CLI) | payer OTHER, SELFPAY ==
--- NOTE | 2020-10-05 | DI.MG.S_ITS ---
BILATERAL DIGITAL SCREENING MAMMOGRAM 3D/2D WITH CAD: 10/05/2020 CLINICAL: Routine screening. Comparison is made to exams dated: 08/20/2019 mammogram, 07/16/2018 mammogram, 06/23/2018 mammogram, and 06/08/2017 mammogram - [facility]. There are scattered fibroglandular elements in both breasts. Current study was also evaluated with a Computer Aided Detection (CAD) system. No significant masses, calcifications, or other findings are seen in either breast. There has been no significant interval change. IMPRESSION: NEGATIVE There is no mammographic evidence of malignancy. A 1 year screening mammogram is recommended. This exam was interpreted at Station ID: [id number]. NOTE: For mammograms, a report in lay terms will be sent to the patient. Approximately 15% of breast malignancies will not be visualized mammographically. In the management of a palpable breast mass, a negative mammogram must not discourage biopsy of a clinically suspicious lesion. Electronically Signed By: Sher Larry M.D., jr/martine:10/05/2020 16:28:30 letter sent: Normal Exam ACR BI-RADS Category 1: Negative 3341F
== END ==
PROVIDERS: PCP Internal Medicine; Referring Provider Internal Medicine; Visit Provider Internal Medicine
DX: Z12.31 Encounter for screening mammogram for malignant neoplasm of breast (principal)
CPT/HCPCS: 77063; 77067

== ENCOUNTER 2020-10-14 09:00 | Outpatient (RCR) | payer OTHER, SELFPAY ==
--- NOTE | 2020-07-27 14:58 | PT.OIE ---
Current Diagnoses Anesthesia of skin (07/27/20) Paresthesia of skin (07/27/20) Past Medical History (Last Reviewed 06/22/20 @ 18:28 by Katty Izquierdo MD) Diabetes Multiple sclerosis Past Surgical History (Last Reviewed 06/22/20 @ 18:28 by Katty Izquierdo MD) History of 2 sections History of cholecystectomy History of hip surgery Visit Care Team Role Provider Type Christelle Padron MD Attending Provider Physician Primary Care Provider Referring Provider Specialty: Internal Medicine Address: [address] [place] [address], [facility] Email: [email or web address] Physical Therapy Initial Evaluation PT-OP-A Visit Information Start: 07/27/20 07:28 Freq: Status: Active Protocol: Document 07/27/20 08:59 MB (Rec: 07/27/20 09:29 MB [id number]) Out-Patient Physical Therapy Visit Information Visit Information Visit Type Initial Evaluation Visit Note [facility] Medical Visit Start Time 08:59 Visit Stop Time 09:37 Total Visit Minutes 38 Visit Number 1 Evaluation Information Evaluation Date 07/27/20 PT-OP-B Current Condition Start: 07/27/20 07:28 Freq: Status: Active Protocol: Document 07/27/20 08:59 MB (Rec: 07/27/20 09:29 MB [id number]) Current Condition History of Current Condition Onset Date 6 weeks Current Complaints Numbness, achiness and tingling in upper thoracic spine History of Current Condition Pt reports that 6 weeks ago, she had a flare-up of numbness and tingling in the middle of her upper thoracic spine. She had 5 days of right sided face numbness and tingling and drooping. It resolved. Three weeks ago, her suddenly of a heart attack at the gym. 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 She has DM. About 2 months ago, she had her A1C checked and it was 7.2. She has a history of relapsing remitting MS. It has been a year and a half since her last flare-up. She denies new numbness and tingling in her arms and legs. She has her typical right forearm numbness and tingling and left calf numbness and tingling. She anticipates going back on medication for MS. She has been given sleeping medication. It kicks in about 0400. She gets up about once a night to urinate. Pt reports history of cervical spine C4-6 fusion in 2014. 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 Pt reports 5/10 achiness in upper thoracic spine, centrally. Prior Treatments and Tests Recent MRI brain revealed no new changes MRI cervical and thoracic spine scheduled for tomorrow . Treatment Goals Patient/Caregiver Goals To be able to stand and cook without pain PT-OP-C Subjective Start: 07/27/20 07:28 Freq: Status: Active Protocol: Document 07/27/20 08:59 MB (Rec: 07/27/20 09:29 MB [id number]) OP-PT Subjective Patient Comments Patient Comments See history of current condition PT-OP-J Posture/Palpation/Skin Start: 07/27/20 07:28 Freq: Status: Active Protocol: Document 07/27/20 08:59 MB (Rec: 07/27/20 14:57 MB [id number]) Posture Evaluation Comments Posture Comments Forward head and rounded shoulders, Dowager's hump, elevated shoulders, greater on the left, decreased thoracic kyphosis and lumbar lordosis, right iliac crest higher than the left. PT-OP-K Range of Motion Start: 07/27/20 07:28 Freq: Status: Active Protocol: Document 07/27/20 08:59 MB (Rec: 07/27/20 14:57 MB [id number]) Cervical Spine Range of Motion Cervical Spine Active Testing Position Standing Flexion 35 Extension 15 Rotation Left 45 Rotation Right 42 Comments 2/10 pain with cervical extension at C7-T1 Shoulder Goniometric Range of Motion Shoulder Bilateral Shoulder ROM WFL Yes Testing Position Standing Comments Checked flexion and abduction in standing and both normal and equal PT-OP-M Strength Start: 07/27/20 07:28 Freq: Status: Active Protocol: Document 07/27/20 08:59 MB (Rec: 07/27/20 14:57 MB [id number]) Shoulder Strength Shoulder Manual Muscle Testing Bilateral Flexion 5 Normal Abduction (C5) 5 Normal External Rotation 5 Normal Internal Rotation 5 Normal Elbow/Forearm Strength Elbow and Forearm Manual Muscle Testing Bilateral Flexion (C6) 5 Normal Knee Strength Knee Manual Muscle Testing Bilateral Flexion (S2) 4 Good PT-OP-Q Treatments Start: 07/27/20 07:28 Freq: Status: Active Protocol: Document 07/27/20 08:59 MB (Rec: 07/27/20 09:44 MB [id number]) Self-Care/Home Management Treatment Education Other Education Proper sleeping position with towel roll in pillow case and proper UE and LE support with pillow, log rolling PT-OP-T Assessment and Plan Start: 07/27/20 07:28 Freq: Status: Active Protocol: Document 07/27/20 08:59 MB (Rec: 07/27/20 12:15 MB [id number]) Physical Therapy Assessment Rehab Potential Rehabilitation Potential Fair Evaluation Complexity Number of Personal Factors/Comorbidities 1-2 Number of Body Systems Impaired 3 Clinical Presentation at Evaluation Evolving Impairments Impairments Activity Tolerance,Balance, Coordination,Pain,Posture,ROM, Sensation,Soft Tissue Mobility ,Strength Goals 3 Floor Grinder Goal (LTG) Pt will perform progressive HEP with I including breathing , relaxation, flexibility, postural and strengthening exercises to improve pain by . LTG Duration 8 weeks 2 Longterm Goal (LTG) Pt will present with improved AROM cervical flexion to 45 deg, extension to 25 deg and B rotation to 45 deg to improve neck movement with ADLs and IADLs by 09/26/20. LTG Duration 8 weeks 1 Floor Grinder Goal (LTG) Pt will report a 75% improvement in cervical/ thoracic achiness to improve quality of life and ability to stand and cook by 09/26/20. LTG Duration 8 weeks Assessment Summary Assessment Pt is a 60 y/o female experiencing grief after sudden loss of her 3 weeks ago. She has MS and reports a flare that started 6 weeks ago. She describes numbness, tingling and achiness in upper thoracic/ lower cervical area. She presents with Dowager's hump and reduced thoracic and lumbar curvatures. Her strength is good. She presents with decreased cervical and thoracic ROM. Her reflexes are easy to provoke for UEs and patellar tendons. She denies increased paresthesias in her limbs. Her right rapid supination and pronation is mildly reduced compared to the left and both are slower in general. Her right knee extension is mildly reduced compared to the left. She has a cervical and thoracic MRI scheduled for tomorrow. She will benefit from PT for postural training, relaxation, ergonomic and body mechanics education, strengthening and flexibility. She anticipates starting medication for MS again soon and this may also help her symptoms. Physical Therapy Plan Frequency and Duration Frequency of Treatment 2x/Week Duration of Treatment 8 weeks Plan of Care Start Date 07/27/20 Plan of Care End Date 09/26/20 Therapeutic Interventions Therapeutic Interventions Aquatic Therapy,Balance Training,Canalithic Repositioning,Home Exercise Program,Joint Mobilizations, Manual Therapy,Neuromuscular Re-education,Patient/Caregiver Education,Self-Care/Home Management,Soft Tissue Mobilization,Taping, Therapeutic Exercises Modalities Cold Pack/Ice Massage Next Visit Focus/Plan Next Note Type Treatment Note Next Visit Plan Open book with arms straight and with hands behind head for pect stretch and rib breathing, thoracic rotation stretch with end-range breathing side to side, racquet ball massage intrascapular muscles and MWM with racquet ball for infraspinatus
--- NOTE | 2020-07-27 14:58 | PT.OPPOC ---
Physical, Occupational & Speech Therapy At [facility] Current Diagnoses Anesthesia of skin (07/27/20) Paresthesia of skin (07/27/20) Visit Care Team Role Provider Type Christelle Padron MD Attending Provider Physician Primary Care Provider Referring Provider Specialty: Internal Medicine Address: [address] [place] [address], [facility] Email: [email or web address] Plan Of Care PT-OP-T Assessment and Plan Start: 07/27/20 07:28 Freq: Status: Active Protocol: Document 07/27/20 08:59 MB (Rec: 07/27/20 12:15 MB [id number]) Physical Therapy Assessment Rehab Potential Rehabilitation Potential Fair Evaluation Complexity Number of Personal Factors/Comorbidities 1-2 Number of Body Systems Impaired 3 Clinical Presentation at Evaluation Evolving Impairments Impairments Activity Tolerance,Balance, Coordination,Pain,Posture,ROM, Sensation,Soft Tissue Mobility ,Strength Goals 3 [facility] Goal (LTG) Pt will perform progressive HEP with I including breathing , relaxation, flexibility, postural and strengthening exercises to improve pain by . LTG Duration 8 weeks 2 [employer] Goal (LTG) Pt will present with improved AROM cervical flexion to 45 deg, extension to 25 deg and B rotation to 45 deg to improve neck movement with ADLs and IADLs by 09/26/20. LTG Duration 8 weeks 1 [employer] Goal (LTG) Pt will report a 75% improvement in cervical/ thoracic achiness to improve quality of life and ability to stand and cook by 09/26/20. LTG Duration 8 weeks Assessment Summary Assessment Pt is a 60 y/o female experiencing grief after sudden loss of her 3 weeks ago. She has MS and reports a flare that started 6 weeks ago. She describes numbness, tingling and achiness in upper thoracic/ lower cervical area. She presents with Dowager's hump and reduced thoracic and lumbar curvatures. Her strength is good. She presents with decreased cervical and thoracic ROM. Her reflexes are easy to provoke for UEs and patellar tendons. She denies increased paresthesias in her limbs. Her right rapid supination and pronation is mildly reduced compared to the left and both are slower in general. Her right knee extension is mildly reduced compared to the left. She has a cervical and thoracic MRI scheduled for tomorrow. She will benefit from PT for postural training, relaxation, ergonomic and body mechanics education, strengthening and flexibility. She anticipates starting medication for MS again soon and this may also help her symptoms. Physical Therapy Plan Frequency and Duration Frequency of Treatment 2x/Week Duration of Treatment 8 weeks Plan of Care Start Date 07/27/20 Plan of Care End Date 09/26/20 Therapeutic Interventions Therapeutic Interventions Aquatic Therapy,Balance Training,Canalithic Repositioning,Home Exercise Program,Joint Mobilizations, Manual Therapy,Neuromuscular Re-education,Patient/Caregiver Education,Self-Care/Home Management,Soft Tissue Mobilization,Taping, Therapeutic Exercises Modalities Cold Pack/Ice Massage Next Visit Focus/Plan Next Note Type Treatment Note Next Visit Plan Open book with arms straight and with hands behind head for pect stretch and rib breathing, thoracic rotation stretch with end-range breathing side to side, racquet ball massage intrascapular muscles and MWM with racquet ball for infraspinatus Plan of Care Dates Plan of Care Start Date 07/27/20 Plan of Care End Date 09/26/20 Electronically Signed by: Violette Crowell, PT 07/27/20 [id number] Please Sign and Return: I have reviewed this Plan of Care and certify that the skilled therapy services above are required to meet the patient?s needs. Physician Signature Date Printed Name and Credentials Clinical Instructor Signature Printed Name and Credentials
--- NOTE | 2020-07-29 09:49 | PT.OTN ---
Current Diagnoses Anesthesia of skin (07/29/20) Paresthesia of skin (07/29/20) Physical Therapy Treatment Note PT-OP-A Visit Information Start: 07/27/20 07:28 Freq: Status: Active Protocol: Document 07/29/20 08:57 MA (Rec: 07/29/20 09:48 MA [id number]) Out-Patient Physical Therapy Visit Information Visit Information Visit Type Treatment Note Visit Start Time 09:00 Visit Stop Time 09:40 Total Visit Minutes 40 Visit Number 2 Number of [employer] Visits 1 PT-OP-B Current Condition Start: 07/27/20 07:28 Freq: Status: Active Protocol: Document 07/27/20 08:59 MB (Rec: 07/27/20 09:29 MB [id number]) Current Condition History of Current Condition Onset Date 6 weeks Current Complaints Numbness, achiness and tingling in upper thoracic spine History of Current Condition Pt reports that 6 weeks ago, she had a flare-up of numbness and tingling in the middle of her upper thoracic spine. She had 5 days of right sided face numbness and tingling and drooping. It resolved. Three weeks ago, her suddenly of a heart attack at the gym. 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 She has DM. About 2 months ago, she had her A1C checked and it was 7.2. She has a history of relapsing remitting MS. It has been a year and a half since her last flare-up. She denies new numbness and tingling in her arms and legs. She has her typical right forearm numbness and tingling and left calf numbness and tingling. She anticipates going back on medication for MS. She has been given sleeping medication. It kicks in about 0400. She gets up about once a night to urinate. Pt reports history of cervical spine C4-6 fusion in 2015. 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 Pt reports 5/10 achiness in upper thoracic spine, centrally. Prior Treatments and Tests Recent MRI brain revealed no new changes MRI cervical and thoracic spine scheduled for tomorrow . Treatment Goals Patient/Caregiver Goals To be able to stand and cook without pain PT-OP-C Subjective Start: 07/27/20 07:28 Freq: Status: Active Protocol: Document 07/29/20 08:57 MA (Rec: 07/29/20 09:49 MA [id number]) OP-PT Subjective Patient Comments Patient Comments Pt states, My MRI results are supposed to be in by today. PT-OP-J Posture/Palpation/Skin Start: 07/27/20 07:28 Freq: Status: Active Protocol: Document 07/27/20 08:59 MB (Rec: 07/27/20 14:57 MB [id number]) Posture Evaluation Comments Posture Comments Forward head and rounded shoulders, Dowager's hump, elevated shoulders, greater on the left, decreased thoracic kyphosis and lumbar lordosis, right iliac crest higher than the left. PT-OP-K Range of Motion Start: 07/27/20 07:28 Freq: Status: Active Protocol: Document 07/27/20 08:59 MB (Rec: 07/27/20 14:57 MB [id number]) Cervical Spine Range of Motion Cervical Spine Active Testing Position Standing Flexion 35 Extension 15 Rotation Left 45 Rotation Right 42 Comments 2/10 pain with cervical extension at C7-T1 Shoulder Goniometric Range of Motion Shoulder Bilateral Shoulder ROM WFL Yes Testing Position Standing Comments Checked flexion and abduction in standing and both normal and equal PT-OP-M Strength Start: 07/27/20 07:28 Freq: Status: Active Protocol: Document 07/27/20 08:59 MB (Rec: 07/27/20 14:57 MB [id number]) Shoulder Strength Shoulder Manual Muscle Testing Bilateral Flexion 5 Normal Abduction (C5) 5 Normal External Rotation 5 Normal Internal Rotation 5 Normal Elbow/Forearm Strength Elbow and Forearm Manual Muscle Testing Bilateral Flexion (C6) 5 Normal Knee Strength Knee Manual Muscle Testing Bilateral Flexion (S2) 4 Good PT-OP-Q Treatments Start: 07/27/20 07:28 Freq: Status: Active Protocol: Document 07/29/20 08:57 MA (Rec: 07/29/20 09:48 MA [id number]) Therapeutic Exercises Sidelying Exercises Open Book Sidelying Exercise Name with arms straight and bent for increased pec stretch Side bilateral Reps/Minutes 10x5 sec hold 2x Comments added to HEP Standing Exercises Pec Stretch Standing Exercise Name Corner Pec stretch Reps/Minutes 2x30 sec Comments Added to HEP Manual Therapy Treatment Soft Tissue Mobilization Intrascapular MMs Body Location Rhomboids, mid traps Mobilization Type Myofascial Release,Sustained Pressure,Trigger Point Release Intensity/Depth Moderate Body Position Prone Comments Mod-Deep pressure Self-Care/Home Management Treatment Education Other Education HEP: Open book with arms straight and bent, corner pec stretch, self-STM with ball intrascapular mms PT-OP-T Assessment and Plan Start: 07/27/20 07:28 Freq: Status: Active Protocol: Document 07/29/20 08:57 MA (Rec: 07/29/20 09:48 MA [id number]) Physical Therapy Assessment Goals 3 Toe Stapler Goal (LTG) Pt will perform progressive HEP with I including breathing , relaxation, flexibility, postural and strengthening exercises to improve pain by . LTG Duration 8 weeks 2 Toe Stapler Goal (LTG) Pt will present with improved AROM cervical flexion to 45 deg, extension to 25 deg and B rotation to 45 deg to improve neck movement with ADLs and IADLs by 09/26/20. LTG Duration 8 weeks 1 [facility] Goal (LTG) Pt will report a 75% improvement in cervical/ thoracic achiness to improve quality of life and ability to stand and cook by 09/26/20. LTG Duration 8 weeks Assessment Summary Assessment Pt had good relief after STM. She is tender R>L intrascapular mms which is consistent with pt having decreased ROM during open book R>L. Added Open Book with arms straight and bent, corner pec stretch, and self-STM with ball to parascapular mms for HEP. Pt would benefit from skilled therapy for improving posture, increasing thoracic ROM, and decreasing thoracic pain. Physical Therapy Plan Frequency and Duration Frequency of Treatment 2x/Week Duration of Treatment 8 weeks Plan of Care Start Date 07/27/20 Plan of Care End Date 09/26/20 Therapeutic Interventions Therapeutic Interventions Aquatic Therapy,Balance Training,Canalithic Repositioning,Home Exercise Program,Joint Mobilizations, Manual Therapy,Neuromuscular Re-education,Patient/Caregiver Education,Self-Care/Home Management,Soft Tissue Mobilization,Taping, Therapeutic Exercises Modalities Cold Pack/Ice Massage Next Visit Focus/Plan Next Note Type Treatment Note Next Visit Plan Look for pt's MRI results. Try stretches over foam roller for pecs and increasing thoracic movement such as horizontal ABD and flexion. Continue with manual and review HEP. Thoracic rotation stretch with end-range breathing side to side, racquet ball massage intrascapular muscles and MWM with racquet ball for infraspinatus
--- NOTE | 2020-08-01 09:49 | PT.OTN ---
Current Diagnoses Anesthesia of skin (08/01/20) Paresthesia of skin (08/01/20) Physical Therapy Treatment Note PT-OP-A Visit Information Start: 07/27/20 07:28 Freq: Status: Active Protocol: Document 08/01/20 09:01 MB (Rec: 08/01/20 09:44 MB [id number]) Out-Patient Physical Therapy Visit Information Visit Information Visit Type Treatment Note Visit Start Time 09:01 Visit Stop Time 09:45 Total Visit Minutes 44 Visit Number 3 PT-OP-B Current Condition Start: 07/27/20 07:28 Freq: Status: Active Protocol: Document 07/27/20 08:59 MB (Rec: 07/27/20 09:29 MB [id number]) Current Condition History of Current Condition Onset Date 6 weeks Current Complaints Numbness, achiness and tingling in upper thoracic spine History of Current Condition Pt reports that 6 weeks ago, she had a flare-up of numbness and tingling in the middle of her upper thoracic spine. She had 5 days of right sided face numbness and tingling and drooping. It resolved. Three weeks ago, her suddenly of a heart attack at the gym. 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 She has DM. About 2 months ago, she had her A1C checked and it was 7.2. She has a history of relapsing remitting MS. It has been a year and a half since her last flare-up. She denies new numbness and tingling in her arms and legs. She has her typical right forearm numbness and tingling and left calf numbness and tingling. She anticipates going back on medication for MS. She has been given sleeping medication. It kicks in about 0400. She gets up about once a night to urinate. Pt reports history of cervical spine C4-6 fusion in 2014. 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 Pt reports 5/10 achiness in upper thoracic spine, centrally. Prior Treatments and Tests Recent MRI brain revealed no new changes MRI cervical and thoracic spine scheduled for tomorrow . Treatment Goals Patient/Caregiver Goals To be able to stand and cook without pain PT-OP-C Subjective Start: 07/27/20 07:28 Freq: Status: Active Protocol: Document 08/01/20 09:01 MB (Rec: 08/01/20 09:44 MB [id number]) OP-PT Subjective Patient Comments Patient Comments Pt states that she is going to call her PCP today about her MRI results. PT-OP-J Posture/Palpation/Skin Start: 07/27/20 07:28 Freq: Status: Active Protocol: Document 07/27/20 08:59 MB (Rec: 07/27/20 14:57 MB [id number]) Posture Evaluation Comments Posture Comments Forward head and rounded shoulders, Dowager's hump, elevated shoulders, greater on the left, decreased thoracic kyphosis and lumbar lordosis, right iliac crest higher than the left. PT-OP-K Range of Motion Start: 07/27/20 07:28 Freq: Status: Active Protocol: Document 07/27/20 08:59 MB (Rec: 07/27/20 14:57 MB [id number]) Cervical Spine Range of Motion Cervical Spine Active Testing Position Standing Flexion 35 Extension 15 Rotation Left 45 Rotation Right 42 Comments 2/10 pain with cervical extension at C7-T1 Shoulder Goniometric Range of Motion Shoulder Bilateral Shoulder ROM WFL Yes Testing Position Standing Comments Checked flexion and abduction in standing and both normal and equal PT-OP-M Strength Start: 07/27/20 07:28 Freq: Status: Active Protocol: Document 07/27/20 08:59 MB (Rec: 07/27/20 14:57 MB [id number]) Shoulder Strength Shoulder Manual Muscle Testing Bilateral Flexion 5 Normal Abduction (C5) 5 Normal External Rotation 5 Normal Internal Rotation 5 Normal Elbow/Forearm Strength Elbow and Forearm Manual Muscle Testing Bilateral Flexion (C6) 5 Normal Knee Strength Knee Manual Muscle Testing Bilateral Flexion (S2) 4 Good PT-OP-Q Treatments Start: 07/27/20 07:28 Freq: Status: Active Protocol: Document 08/01/20 09:01 MB (Rec: 08/01/20 09:44 MB [id number]) Therapeutic Exercises Supine Exercises Buteyko breathing Supine Exercise Name Theory and initiation of exercise training, see assessment for comments Comments Exercise 1 (decongest), diaphragm breathing Manual Therapy Treatment Other Other Manual Treatments Pt agrees to Counterstrain to assess and treat fascial tension. Pt denies eye pressure changes. PT performs Counterstrain assessment on cranium today and then positional release B middle scalene and suboccipital release. Her diaphragm breathing is better afterwards and her mouth is taped with paper tape for treatment. PT-OP-T Assessment and Plan Start: 07/27/20 07:28 Freq: Status: Active Protocol: Document 08/01/20 09:01 MB (Rec: 08/01/20 09:44 MB [id number]) Physical Therapy Assessment Rehab Potential Rehabilitation Potential Fair Evaluation Complexity Number of Personal Factors/Comorbidities 1-2 Number of Body Systems Impaired 3 Clinical Presentation at Evaluation Evolving Impairments Impairments Activity Tolerance,Balance, Coordination,Pain,Posture,ROM, Sensation,Soft Tissue Mobility ,Strength Goals 3 [facility] Goal (LTG) Pt will perform progressive HEP with I including breathing , relaxation, flexibility, postural and strengthening exercises to improve pain by . LTG Duration 8 weeks 2 [facility]dc Goal (LTG) Pt will present with improved AROM cervical flexion to 45 deg, extension to 25 deg and B rotation to 45 deg to improve neck movement with ADLs and IADLs by 09/26/20. LTG Duration 8 weeks 1 [facility] Goal (LTG) Pt will report a 75% improvement in cervical/ thoracic achiness to improve quality of life and ability to stand and cook by 09/26/20. LTG Duration 8 weeks Assessment Summary Assessment Pt's anniversary weekend was this weekend and it was a sad time. Cervical and thoracic MRI results are in and PT does look at them and pt will follow-up with PCP and neurologist this week. Initiated Buteyko breathing today to help with sleep, relaxation. O2 sats are 95% and HR is 64 BPM after first exercise. Taught initial CP. O2 sats increase to 96% throughout treatment. Performed 6 reps and pt can hold up to 26 sec and sats increase to 97% and HR decreases to 57 BPM. Pt tends to breathe through her mouth and thoracic spine when added diaphragm component with hand on chest and belly and so stopped thinking about this and go back to exercise 1. After another rep, diaphragm breathing becomes more natural . Two more reps of exercise one and pt CP is 30-35 sec and pt is able to more fully relax. Did use book on abdomen to help with diaphragm breathing and pt does state that her neck feels better with this. Physical Therapy Plan Frequency and Duration Frequency of Treatment 2x/Week Duration of Treatment 8 weeks Plan of Care Start Date 07/27/20 Plan of Care End Date 09/26/20 Therapeutic Interventions Therapeutic Interventions Aquatic Therapy,Balance Training,Canalithic Repositioning,Home Exercise Program,Joint Mobilizations, Manual Therapy,Neuromuscular Re-education,Patient/Caregiver Education,Self-Care/Home Management,Soft Tissue Mobilization,Taping, Therapeutic Exercises Modalities Cold Pack/Ice Massage Next Visit Focus/Plan Next Note Type Treatment Note Next Visit Plan Review racquet ball exercises, add open book with elbows bent and rib breathing, review Buteyko breathing, Counterstrain, eventually add intrascapular and shoulder strengthening exercises
--- NOTE | 2020-08-05 13:37 | PT.OTN ---
Current Diagnoses Anesthesia of skin (08/05/20) Paresthesia of skin (08/05/20) Physical Therapy Treatment Note PT-OP-A Visit Information Start: 07/27/20 07:28 Freq: Status: Active Protocol: Document 08/05/20 12:59 MB (Rec: 08/05/20 13:35 MB [id number]) Out-Patient Physical Therapy Visit Information Visit Information Visit Type Treatment Note Visit Start Time 12:59 Visit Stop Time 13:37 Total Visit Minutes 38 Visit Number 4 PT-OP-B Current Condition Start: 07/27/20 07:28 Freq: Status: Active Protocol: Document 07/27/20 08:59 MB (Rec: 07/27/20 09:29 MB [id number]) Current Condition History of Current Condition Onset Date 6 weeks Current Complaints Numbness, achiness and tingling in upper thoracic spine History of Current Condition Pt reports that 6 weeks ago, she had a flare-up of numbness and tingling in the middle of her upper thoracic spine. She had 5 days of right sided face numbness and tingling and drooping. It resolved. Three weeks ago, her suddenly of a heart attack at the gym. 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 She has DM. About 2 months ago, she had her A1C checked and it was 7.2. She has a history of relapsing remitting MS. It has been a year and a half since her last flare-up. She denies new numbness and tingling in her arms and legs. She has her typical right forearm numbness and tingling and left calf numbness and tingling. She anticipates going back on medication for MS. She has been given sleeping medication. It kicks in about 0400. She gets up about once a night to urinate. Pt reports history of cervical spine C4-6 fusion in 2014. 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 Pt reports 5/10 achiness in upper thoracic spine, centrally. Prior Treatments and Tests Recent MRI brain revealed no new changes MRI cervical and thoracic spine scheduled for tomorrow . Treatment Goals Patient/Caregiver Goals To be able to stand and cook without pain PT-OP-C Subjective Start: 07/27/20 07:28 Freq: Status: Active Protocol: Document 08/05/20 12:59 MB (Rec: 08/05/20 13:35 MB [id number]) OP-PT Subjective Patient Comments Patient Comments Pt states that she journeled this morning and it helped. She states that she has tried the breathing exercises and they help. She no longer has pain between her shoulder blades and it has moved to her neck. She returned from visiting her daughter and is negotiating dealing with financial issues after 's . PT-OP-J Posture/Palpation/Skin Start: 07/27/20 07:28 Freq: Status: Active Protocol: Document 07/27/20 08:59 MB (Rec: 07/27/20 14:57 MB [id number]) Posture Evaluation Comments Posture Comments Forward head and rounded shoulders, Dowager's hump, elevated shoulders, greater on the left, decreased thoracic kyphosis and lumbar lordosis, right iliac crest higher than the left. PT-OP-K Range of Motion Start: 07/27/20 07:28 Freq: Status: Active Protocol: Document 07/27/20 08:59 MB (Rec: 07/27/20 14:57 MB [id number]) Cervical Spine Range of Motion Cervical Spine Active Testing Position Standing Flexion 35 Extension 15 Rotation Left 45 Rotation Right 42 Comments 2/10 pain with cervical extension at C7-T1 Shoulder Goniometric Range of Motion Shoulder Bilateral Shoulder ROM WFL Yes Testing Position Standing Comments Checked flexion and abduction in standing and both normal and equal PT-OP-M Strength Start: 07/27/20 07:28 Freq: Status: Active Protocol: Document 07/27/20 08:59 MB (Rec: 07/27/20 14:57 MB [id number]) Shoulder Strength Shoulder Manual Muscle Testing Bilateral Flexion 5 Normal Abduction (C5) 5 Normal External Rotation 5 Normal Internal Rotation 5 Normal Elbow/Forearm Strength Elbow and Forearm Manual Muscle Testing Bilateral Flexion (C6) 5 Normal Knee Strength Knee Manual Muscle Testing Bilateral Flexion (S2) 4 Good PT-OP-Q Treatments Start: 07/27/20 07:28 Freq: Status: Active Protocol: Document 08/05/20 12:59 MB (Rec: 08/05/20 13:35 MB [id number]) Manual Therapy Treatment Other Other Manual Treatments Pt agrees to Counterstrain to assess and treat fascial tension and she presents with tension in the following fascial systems: facial nerve, annular discs, spinal medullary veins and standard lymphatic row. PT treats stacks in LV system and pt responds well and her scan improves. PT then treats sympathetic nerve fascia and pt also responds well. PT also performs left first rib isometric, SCM STM left greater than right and suboccipital release. PT-OP-T Assessment and Plan Start: 07/27/20 07:28 Freq: Status: Active Protocol: Document 08/05/20 12:59 MB (Rec: 08/05/20 13:35 MB [id number]) Physical Therapy Assessment Rehab Potential Rehabilitation Potential Fair Evaluation Complexity Number of Personal Factors/Comorbidities 1-2 Number of Body Systems Impaired 3 Clinical Presentation at Evaluation Evolving Impairments Impairments Activity Tolerance,Balance, Coordination,Pain,Posture,ROM, Sensation,Soft Tissue Mobility ,Strength Goals 3 Electronic Commerce Specialist Goal (LTG) Pt will perform progressive HEP with I including breathing , relaxation, flexibility, postural and strengthening exercises to improve pain by . LTG Duration 8 weeks 2 Custodial Goal (LTG) Pt will present with improved AROM cervical flexion to 45 deg, extension to 25 deg and B rotation to 45 deg to improve neck movement with ADLs and IADLs by 09/26/20. LTG Duration 8 weeks 1 Custodial Goal (LTG) Pt will report a 75% improvement in cervical/ thoracic achiness to improve quality of life and ability to stand and cook by 09/26/20. LTG Duration 8 weeks Assessment Summary Assessment Ongoing Counterstrain this date and pt responds well with working on nasal breathing during the treatment. Physical Therapy Plan Frequency and Duration Frequency of Treatment 2x/Week Duration of Treatment 8 weeks Plan of Care Start Date 07/27/20 Plan of Care End Date 09/26/20 Therapeutic Interventions Therapeutic Interventions Aquatic Therapy,Balance Training,Canalithic Repositioning,Home Exercise Program,Joint Mobilizations, Manual Therapy,Neuromuscular Re-education,Patient/Caregiver Education,Self-Care/Home Management,Soft Tissue Mobilization,Taping, Therapeutic Exercises Modalities Cold Pack/Ice Massage Next Visit Focus/Plan Next Note Type Treatment Note Next Visit Plan Review B[place]yko breathing as needed, consider teaching self -SCM MWM, ongoing Counterstrain, eventually add intrascapular and shoulder strengthening exercises
--- NOTE | 2020-08-10 15:06 | PT.OTN ---
Current Diagnoses Anesthesia of skin (08/10/20) Paresthesia of skin (08/10/20) Physical Therapy Treatment Note PT-OP-A Visit Information Start: 07/27/20 07:28 Freq: Status: Active Protocol: Document 08/10/20 13:03 MB (Rec: 08/10/20 13:50 MB [id number]) Out-Patient Physical Therapy Visit Information Visit Information Visit Type Treatment Note Visit Start Time 13:03 Visit Stop Time 13:45 Total Visit Minutes 42 Visit Number 5 PT-OP-B Current Condition Start: 07/27/20 07:28 Freq: Status: Active Protocol: Document 07/27/20 08:59 MB (Rec: 07/27/20 09:29 MB [id number]) Current Condition History of Current Condition Onset Date 6 weeks Current Complaints Numbness, achiness and tingling in upper thoracic spine History of Current Condition Pt reports that 6 weeks ago, she had a flare-up of numbness and tingling in the middle of her upper thoracic spine. She had 5 days of right sided face numbness and tingling and drooping. It resolved. Three weeks ago, her suddenly of a heart attack at the gym. 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 She has DM. About 2 months ago, she had her A1C checked and it was 7.2. She has a history of relapsing remitting MS. It has been a year and a half since her last flare-up. She denies new numbness and tingling in her arms and legs. She has her typical right forearm numbness and tingling and left calf numbness and tingling. She anticipates going back on medication for MS. She has been given sleeping medication. It kicks in about 0400. She gets up about once a night to urinate. Pt reports history of cervical spine C4-6 fusion in 2014. 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 Pt reports 5/10 achiness in upper thoracic spine, centrally. Prior Treatments and Tests Recent MRI brain revealed no new changes MRI cervical and thoracic spine scheduled for tomorrow . Treatment Goals Patient/Caregiver Goals To be able to stand and cook without pain PT-OP-C Subjective Start: 07/27/20 07:28 Freq: Status: Active Protocol: Document 08/10/20 13:03 MB (Rec: 08/10/20 13:50 MB [id number]) OP-PT Subjective Patient Comments Patient Comments Pt states that things went pretty well with her dog. She is doing better. She is still having that issue with her upper back but later and later in the day. PT-OP-J Posture/Palpation/Skin Start: 07/27/20 07:28 Freq: Status: Active Protocol: Document 07/27/20 08:59 MB (Rec: 07/27/20 14:57 MB [id number]) Posture Evaluation Comments Posture Comments Forward head and rounded shoulders, Dowager's hump, elevated shoulders, greater on the left, decreased thoracic kyphosis and lumbar lordosis, right iliac crest higher than the left. PT-OP-K Range of Motion Start: 07/27/20 07:28 Freq: Status: Active Protocol: Document 07/27/20 08:59 MB (Rec: 07/27/20 14:57 MB [id number]) Cervical Spine Range of Motion Cervical Spine Active Testing Position Standing Flexion 35 Extension 15 Rotation Left 45 Rotation Right 42 Comments 2/10 pain with cervical extension at C7-T1 Shoulder Goniometric Range of Motion Shoulder Bilateral Shoulder ROM WFL Yes Testing Position Standing Comments Checked flexion and abduction in standing and both normal and equal PT-OP-M Strength Start: 07/27/20 07:28 Freq: Status: Active Protocol: Document 07/27/20 08:59 MB (Rec: 07/27/20 14:57 MB [id number]) Shoulder Strength Shoulder Manual Muscle Testing Bilateral Flexion 5 Normal Abduction (C5) 5 Normal External Rotation 5 Normal Internal Rotation 5 Normal Elbow/Forearm Strength Elbow and Forearm Manual Muscle Testing Bilateral Flexion (C6) 5 Normal Knee Strength Knee Manual Muscle Testing Bilateral Flexion (S2) 4 Good PT-OP-Q Treatments Start: 07/27/20 07:28 Freq: Status: Active Protocol: Document 08/10/20 13:03 MB (Rec: 08/10/20 15:06 MB [id number]) Therapeutic Exercises Other Exercises Therapy ball exercises Other Exercise Name Pect, QL and hip adductor stretches, core engagement and pelvic tilts Side bilateral Comments Performed over 65 cm ball today, pt takes video of PT performing Manual Therapy Treatment Other Other Manual Treatments STM over rectus abdominis and diaphragm area as pt nasal breathes Self-Care/Home Management Treatment Education Other Education Benefits of working on sitting position at home and possible ergonomic assessment at work when she returns; looked at desk set-up with therapy ball chair, discussed ergonomics of desk station, benefits of sitting on ball at home PT-OP-T Assessment and Plan Start: 07/27/20 07:28 Freq: Status: Active Protocol: Document 08/10/20 13:03 MB (Rec: 08/10/20 13:50 MB [id number]) Physical Therapy Assessment Rehab Potential Rehabilitation Potential Fair Evaluation Complexity Number of Personal Factors/Comorbidities 1-2 Number of Body Systems Impaired 3 Clinical Presentation at Evaluation Evolving Impairments Impairments Activity Tolerance,Balance, Coordination,Pain,Posture,ROM, Sensation,Soft Tissue Mobility ,Strength Goals 3 Tag Writer Goal (LTG) Pt will perform progressive HEP with I including breathing , relaxation, flexibility, postural and strengthening exercises to improve pain by . LTG Duration 8 weeks 2 Tag Writer Goal (LTG) Pt will present with improved AROM cervical flexion to 45 deg, extension to 25 deg and B rotation to 45 deg to improve neck movement with ADLs and IADLs by 09/26/20. LTG Duration 8 weeks 1 [facility] Goal (LTG) Pt will report a 75% improvement in cervical/ thoracic achiness to improve quality of life and ability to stand and cook by 09/26/20. LTG Duration 8 weeks Assessment Summary Assessment Initiated education about desk ergonomics today and pt may benefit from ergonomic assessment when she returns to work in two weeks. She is feeling better and initiated sitting on a therapy ball and stretching over it today. Will con't PT per plan below. Physical Therapy Plan Frequency and Duration Frequency of Treatment 2x/Week Duration of Treatment 8 weeks Plan of Care Start Date 07/27/20 Plan of Care End Date 09/26/20 Therapeutic Interventions Therapeutic Interventions Aquatic Therapy,Balance Training,Canalithic Repositioning,Home Exercise Program,Joint Mobilizations, Manual Therapy,Neuromuscular Re-education,Patient/Caregiver Education,Self-Care/Home Management,Soft Tissue Mobilization,Taping, Therapeutic Exercises Modalities Cold Pack/Ice Massage Other Referrals/Consults Referrals/Consults Recommended Ergonomic assessment at work when appropriate for work station, pt is interested in therapy ball chair Next Visit Focus/Plan Next Note Type Treatment Note Next Visit Plan Review Renay breathing as needed, consider teaching self -SCM MWM, ongoing Counterstrain, eventually add intrascapular and shoulder strengthening exercises
--- NOTE | 2020-08-12 11:17 | PT.OTN ---
Current Diagnoses Anesthesia of skin (08/12/20) Paresthesia of skin (08/12/20) Physical Therapy Treatment Note PT-OP-A Visit Information Start: 07/27/20 07:28 Freq: Status: Active Protocol: Document 08/12/20 10:34 MB (Rec: 08/12/20 11:17 MB [id number]) Out-Patient Physical Therapy Visit Information Visit Information Visit Type Treatment Note Visit Start Time 10:34 Visit Stop Time 11:15 Total Visit Minutes 41 Visit Number 6 PT-OP-B Current Condition Start: 07/27/20 07:28 Freq: Status: Active Protocol: Document 07/27/20 08:59 MB (Rec: 07/27/20 09:29 MB [id number]) Current Condition History of Current Condition Onset Date 6 weeks Current Complaints Numbness, achiness and tingling in upper thoracic spine History of Current Condition Pt reports that 6 weeks ago, she had a flare-up of numbness and tingling in the middle of her upper thoracic spine. She had 5 days of right sided face numbness and tingling and drooping. It resolved. Three weeks ago, her suddenly of a heart attack at the gym. 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 She has DM. About 2 months ago, she had her A1C checked and it was 7.2. She has a history of relapsing remitting MS. It has been a year and a half since her last flare-up. She denies new numbness and tingling in her arms and legs. She has her typical right forearm numbness and tingling and left calf numbness and tingling. She anticipates going back on medication for MS. She has been given sleeping medication. It kicks in about 0400. She gets up about once a night to urinate. Pt reports history of cervical spine C4-6 fusion in 2014. 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 Pt reports 5/10 achiness in upper thoracic spine, centrally. Prior Treatments and Tests Recent MRI brain revealed no new changes MRI cervical and thoracic spine scheduled for tomorrow . Treatment Goals Patient/Caregiver Goals To be able to stand and cook without pain PT-OP-C Subjective Start: 07/27/20 07:28 Freq: Status: Active Protocol: Document 08/12/20 10:34 MB (Rec: 08/12/20 11:17 MB [id number]) OP-PT Subjective Patient Comments Patient Comments Pt brings in her 75 cm therapy ball. PT-OP-J Posture/Palpation/Skin Start: 07/27/20 07:28 Freq: Status: Active Protocol: Document 07/27/20 08:59 MB (Rec: 07/27/20 14:57 MB [id number]) Posture Evaluation Comments Posture Comments Forward head and rounded shoulders, Dowager's hump, elevated shoulders, greater on the left, decreased thoracic kyphosis and lumbar lordosis, right iliac crest higher than the left. PT-OP-K Range of Motion Start: 07/27/20 07:28 Freq: Status: Active Protocol: Document 07/27/20 08:59 MB (Rec: 07/27/20 14:57 MB [id number]) Cervical Spine Range of Motion Cervical Spine Active Testing Position Standing Flexion 35 Extension 15 Rotation Left 45 Rotation Right 42 Comments 2/10 pain with cervical extension at C7-T1 Shoulder Goniometric Range of Motion Shoulder Bilateral Shoulder ROM WFL Yes Testing Position Standing Comments Checked flexion and abduction in standing and both normal and equal PT-OP-M Strength Start: 07/27/20 07:28 Freq: Status: Active Protocol: Document 07/27/20 08:59 MB (Rec: 07/27/20 14:57 MB [id number]) Shoulder Strength Shoulder Manual Muscle Testing Bilateral Flexion 5 Normal Abduction (C5) 5 Normal External Rotation 5 Normal Internal Rotation 5 Normal Elbow/Forearm Strength Elbow and Forearm Manual Muscle Testing Bilateral Flexion (C6) 5 Normal Knee Strength Knee Manual Muscle Testing Bilateral Flexion (S2) 4 Good PT-OP-Q Treatments Start: 07/27/20 07:28 Freq: Status: Active Protocol: Document 08/12/20 10:34 MB (Rec: 08/12/20 11:17 MB [id number]) Manual Therapy Treatment Other Other Manual Treatments MWM left upper traps and middle scalene and PT providing TrP pressure and pt performing active cervical ROM . Pt agrees to Counterstrain to assess and treat fascial tension and she presents with tension in ALL system and PT treats stacks. Diaphragm STM and pt performing gentle breathing, left first rib isometric PT-OP-T Assessment and Plan Start: 07/27/20 07:28 Freq: Status: Active Protocol: Document 08/12/20 10:34 MB (Rec: 08/12/20 11:17 MB [id number]) Physical Therapy Assessment Rehab Potential Rehabilitation Potential Fair Evaluation Complexity Number of Personal Factors/Comorbidities 1-2 Number of Body Systems Impaired 3 Clinical Presentation at Evaluation Evolving Impairments Impairments Activity Tolerance,Balance, Coordination,Pain,Posture,ROM, Sensation,Soft Tissue Mobility ,Strength Goals 3 Prison Goal (LTG) Pt will perform progressive HEP with I including breathing , relaxation, flexibility, postural and strengthening exercises to improve pain by . LTG Duration 8 weeks 2 Prison Goal (LTG) Pt will present with improved AROM cervical flexion to 45 deg, extension to 25 deg and B rotation to 45 deg to improve neck movement with ADLs and IADLs by 09/26/20. LTG Duration 8 weeks [address] Goal (LTG) Pt will report a 75% improvement in cervical/ thoracic achiness to improve quality of life and ability to stand and cook by 09/26/20. LTG Duration 8 weeks Assessment Summary Assessment Manual work today and pt responds well. Her left first rib mobility is better after treatment. Con't per PT plan below. Physical Therapy Plan Frequency and Duration Frequency of Treatment 2x/Week Duration of Treatment 8 weeks Plan of Care Start Date 07/27/20 Plan of Care End Date 09/26/20 Therapeutic Interventions Therapeutic Interventions Aquatic Therapy,Balance Training,Canalithic Repositioning,Home Exercise Program,Joint Mobilizations, Manual Therapy,Neuromuscular Re-education,Patient/Caregiver Education,Self-Care/Home Management,Soft Tissue Mobilization,Taping, Therapeutic Exercises Modalities Cold Pack/Ice Massage Other Referrals/Consults Referrals/Consults Recommended Ergonomic assessment at work when appropriate for work station, pt is interested in therapy ball chair Next Visit Focus/Plan Next Note Type Treatment Note Next Visit Plan Similiar: Buteyko breathing as needed, consider teaching self-SCM MWM, ongoing Counterstrain, eventually add intrascapular and shoulder strengthening exercises
--- NOTE | 2020-08-22 13:47 | PT.OTN ---
Current Diagnoses Anesthesia of skin (08/22/20) Paresthesia of skin (08/22/20) Physical Therapy Treatment Note PT-OP-A Visit Information Start: 07/27/20 07:28 Freq: Status: Active Protocol: Document 08/22/20 12:59 MB (Rec: 08/22/20 13:47 MB [id number]) Out-Patient Physical Therapy Visit Information Visit Information Visit Type Treatment Note Visit Start Time 12:59 Visit Stop Time 13:44 Total Visit Minutes 45 Visit Number 7 PT-OP-B Current Condition Start: 07/27/20 07:28 Freq: Status: Active Protocol: Document 07/27/20 08:59 MB (Rec: 07/27/20 09:29 MB [id number]) Current Condition History of Current Condition Onset Date 6 weeks Current Complaints Numbness, achiness and tingling in upper thoracic spine History of Current Condition Pt reports that 6 weeks ago, she had a flare-up of numbness and tingling in the middle of her upper thoracic spine. She had 5 days of right sided face numbness and tingling and drooping. It resolved. Three weeks ago, her suddenly of a heart attack at the gym. 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 She has DM. About 2 months ago, she had her A1C checked and it was 7.2. She has a history of relapsing remitting MS. It has been a year and a half since her last flare-up. She denies new numbness and tingling in her arms and legs. She has her typical right forearm numbness and tingling and left calf numbness and tingling. She anticipates going back on medication for MS. She has been given sleeping medication. It kicks in about 0400. She gets up about once a night to urinate. Pt reports history of cervical spine C4-6 fusion in 2014. 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 Pt reports 5/10 achiness in upper thoracic spine, centrally. Prior Treatments and Tests Recent MRI brain revealed no new changes MRI cervical and thoracic spine scheduled for tomorrow . Treatment Goals Patient/Caregiver Goals To be able to stand and cook without pain PT-OP-C Subjective Start: 07/27/20 07:28 Freq: Status: Active Protocol: Document 08/22/20 12:59 MB (Rec: 08/22/20 13:47 MB [id number]) OP-PT Subjective Patient Comments Patient Comments Pt states that she just got her 's ashes today. It has been an upsetting day. She has to return to work tomorrow. PT-OP-J Posture/Palpation/Skin Start: 07/27/20 07:28 Freq: Status: Active Protocol: Document 07/27/20 08:59 MB (Rec: 07/27/20 14:57 MB [id number]) Posture Evaluation Comments Posture Comments Forward head and rounded shoulders, Dowager's hump, elevated shoulders, greater on the left, decreased thoracic kyphosis and lumbar lordosis, right iliac crest higher than the left. PT-OP-K Range of Motion Start: 07/27/20 07:28 Freq: Status: Active Protocol: Document 07/27/20 08:59 MB (Rec: 07/27/20 14:57 MB [id number]) Cervical Spine Range of Motion Cervical Spine Active Testing Position Standing Flexion 35 Extension 15 Rotation Left 45 Rotation Right 42 Comments 2/10 pain with cervical extension at C7-T1 Shoulder Goniometric Range of Motion Shoulder Bilateral Shoulder ROM WFL Yes Testing Position Standing Comments Checked flexion and abduction in standing and both normal and equal PT-OP-M Strength Start: 07/27/20 07:28 Freq: Status: Active Protocol: Document 07/27/20 08:59 MB (Rec: 07/27/20 14:57 MB [id number]) Shoulder Strength Shoulder Manual Muscle Testing Bilateral Flexion 5 Normal Abduction (C5) 5 Normal External Rotation 5 Normal Internal Rotation 5 Normal Elbow/Forearm Strength Elbow and Forearm Manual Muscle Testing Bilateral Flexion (C6) 5 Normal Knee Strength Knee Manual Muscle Testing Bilateral Flexion (S2) 4 Good PT-OP-Q Treatments Start: 07/27/20 07:28 Freq: Status: Active Protocol: Document 08/22/20 12:59 MB (Rec: 08/22/20 13:47 MB [id number]) Therapeutic Exercises Supine Exercises Self-MWM Supine Exercise Name Middle scalene and SCM Side bilateral Comments Pt holding TrP and then rotating head the other direction Standing Exercises Self-massage and MWM with racquet ball and theracane Standing Exercise Name Theracane and back toxics program officer for levator, upper traps and infraspinatus ball Side bilateral Comments Left greater than right: racquet ball for TrP and active movement away Manual Therapy Treatment Other Other Manual Treatments MWM left greater than right SCM and middle scalene with pt performing active cervical rotation opposite direction PT-OP-T Assessment and Plan Start: 07/27/20 07:28 Freq: Status: Active Protocol: Document 08/22/20 12:59 MB (Rec: 08/22/20 13:47 MB [id number]) Physical Therapy Assessment Rehab Potential Rehabilitation Potential Fair Evaluation Complexity Number of Personal Factors/Comorbidities 1-2 Number of Body Systems Impaired 3 Clinical Presentation at Evaluation Evolving Impairments Impairments Activity Tolerance,Balance, Coordination,Pain,Posture,ROM, Sensation,Soft Tissue Mobility ,Strength Goals 3 Cap Lining Machine Operator Goal (LTG) Pt will perform progressive HEP with I including breathing , relaxation, flexibility, postural and strengthening exercises to improve pain by . LTG Duration 8 weeks 2 Mcc Goal (LTG) Pt will present with improved AROM cervical flexion to 45 deg, extension to 25 deg and B rotation to 45 deg to improve neck movement with ADLs and IADLs by 09/26/20. LTG Duration 8 weeks 1 Cap Lining Machine Operator Goal (LTG) Pt will report a 75% improvement in cervical/ thoracic achiness to improve quality of life and ability to stand and cook by 09/26/20. LTG Duration 8 weeks Assessment Summary Assessment Self-massage and MWM added today and pt to start back to work tomorrow. Will see how she feels on Saturday as far as adding some stretches to do at work: cat/cow with hands on desk, pect stretch in doorway, thoracic rotation and QL with arm overhead in sitting and scapular retraction. Physical Therapy Plan Frequency and Duration Frequency of Treatment 2x/Week Duration of Treatment 8 weeks Plan of Care Start Date 07/27/20 Plan of Care End Date 09/26/20 Therapeutic Interventions Therapeutic Interventions Aquatic Therapy,Balance Training,Canalithic Repositioning,Home Exercise Program,Joint Mobilizations, Manual Therapy,Neuromuscular Re-education,Patient/Caregiver Education,Self-Care/Home Management,Soft Tissue Mobilization,Taping, Therapeutic Exercises Modalities Cold Pack/Ice Massage Other Referrals/Consults Referrals/Consults Recommended Ergonomic assessment at work when appropriate for work station, pt is interested in therapy ball chair Next Visit Focus/Plan Next Note Type Treatment Note Next Visit Plan Exercises for work: cat cow with hands on desk in standing , scapular retraction in sitting, thoracic rotation with end-range breathing B[place]ko breathing as needed, ongoing Counterstrain, eventually add intrascapular and shoulder strengthening exercises
--- NOTE | 2020-08-26 09:48 | PT.OTN ---
Current Diagnoses Anesthesia of skin (08/26/20) Paresthesia of skin (08/26/20) Physical Therapy Treatment Note PT-OP-A Visit Information Start: 07/27/20 07:28 Freq: Status: Active Protocol: Document 08/26/20 09:03 MB (Rec: 08/26/20 09:48 MB [id number]) Out-Patient Physical Therapy Visit Information Visit Information Visit Type Treatment Note Visit Start Time 09:03 Visit Stop Time 09:45 Total Visit Minutes 42 Visit Number 8 PT-OP-B Current Condition Start: 07/27/20 07:28 Freq: Status: Active Protocol: Document 07/27/20 08:59 MB (Rec: 07/27/20 09:29 MB [id number]) Current Condition History of Current Condition Onset Date 6 weeks Current Complaints Numbness, achiness and tingling in upper thoracic spine History of Current Condition Pt reports that 6 weeks ago, she had a flare-up of numbness and tingling in the middle of her upper thoracic spine. She had 5 days of right sided face numbness and tingling and drooping. It resolved. Three weeks ago, her suddenly of a heart attack at the gym. 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 She has DM. About 2 months ago, she had her A1C checked and it was 7.2. She has a history of relapsing remitting MS. It has been a year and a half since her last flare-up. She denies new numbness and tingling in her arms and legs. She has her typical right forearm numbness and tingling and left calf numbness and tingling. She anticipates going back on medication for MS. She has been given sleeping medication. It kicks in about 0400. She gets up about once a night to urinate. Pt reports history of cervical spine C4-6 fusion in 2014. 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 Pt reports 5/10 achiness in upper thoracic spine, centrally. Prior Treatments and Tests Recent MRI brain revealed no new changes MRI cervical and thoracic spine scheduled for tomorrow . Treatment Goals Patient/Caregiver Goals To be able to stand and cook without pain PT-OP-C Subjective Start: 07/27/20 07:28 Freq: Status: Active Protocol: Document 08/26/20 09:03 MB (Rec: 08/26/20 09:48 MB [id number]) OP-PT Subjective Patient Comments Patient Comments Pt made it through the work week. She talked with a therapist earlier in the week and that was hard. PT-OP-J Posture/Palpation/Skin Start: 07/27/20 07:28 Freq: Status: Active Protocol: Document 07/27/20 08:59 MB (Rec: 07/27/20 14:57 MB [id number]) Posture Evaluation Comments Posture Comments Forward head and rounded shoulders, Dowager's hump, elevated shoulders, greater on the left, decreased thoracic kyphosis and lumbar lordosis, right iliac crest higher than the left. PT-OP-K Range of Motion Start: 07/27/20 07:28 Freq: Status: Active Protocol: Document 07/27/20 08:59 MB (Rec: 07/27/20 14:57 MB [id number]) Cervical Spine Range of Motion Cervical Spine Active Testing Position Standing Flexion 35 Extension 15 Rotation Left 45 Rotation Right 42 Comments 2/10 pain with cervical extension at C7-T1 Shoulder Goniometric Range of Motion Shoulder Bilateral Shoulder ROM WFL Yes Testing Position Standing Comments Checked flexion and abduction in standing and both normal and equal PT-OP-M Strength Start: 07/27/20 07:28 Freq: Status: Active Protocol: Document 07/27/20 08:59 MB (Rec: 07/27/20 14:57 MB [id number]) Shoulder Strength Shoulder Manual Muscle Testing Bilateral Flexion 5 Normal Abduction (C5) 5 Normal External Rotation 5 Normal Internal Rotation 5 Normal Elbow/Forearm Strength Elbow and Forearm Manual Muscle Testing Bilateral Flexion (C6) 5 Normal Knee Strength Knee Manual Muscle Testing Bilateral Flexion (S2) 4 Good PT-OP-Q Treatments Start: 07/27/20 07:28 Freq: Status: Active Protocol: Document 08/26/20 09:03 MB (Rec: 08/26/20 09:48 MB [id number]) Therapeutic Exercises Sitting Exercises Thoracic rotation in sitting Side bilateral Comments Arms across chest, end-range nasal breathing, many reps Standing Exercises Scapular retraction and chin tuck Comments Performed in sitting and standing today Upper cervical isometric Comments Treated towards right rotation Self-massage and MWM with racquet ball and theracane Standing Exercise Name Theracane Side bilateral Comments Levator on the left Manual Therapy Treatment Other Other Manual Treatments Pt sitting: MWM left upper traps, levator and scalenes with PT performing TrP pressure and pt perform active movement away PT-OP-T Assessment and Plan Start: 07/27/20 07:28 Freq: Status: Active Protocol: Document 08/26/20 09:03 MB (Rec: 08/26/20 09:48 MB [id number]) Physical Therapy Assessment Rehab Potential Rehabilitation Potential Fair Evaluation Complexity Number of Personal Factors/Comorbidities 1-2 Number of Body Systems Impaired 3 Clinical Presentation at Evaluation Evolving Impairments Impairments Activity Tolerance,Balance, Coordination,Pain,Posture,ROM, Sensation,Soft Tissue Mobility ,Strength Goals 3 Custodial Goal (LTG) Pt will perform progressive HEP with I including breathing , relaxation, flexibility, postural and strengthening exercises to improve pain by . LTG Duration 8 weeks 2 Slate Cutter Goal (LTG) Pt will present with improved AROM cervical flexion to 45 deg, extension to 25 deg and B rotation to 45 deg to improve neck movement with ADLs and IADLs by 09/26/20. LTG Duration 8 weeks 1 Slate Cutter Goal (LTG) Pt will report a 75% improvement in cervical/ thoracic achiness to improve quality of life and ability to stand and cook by 09/26/20. LTG Duration 8 weeks Assessment Summary Assessment Progressed postural exercises for work and talked with pt about how ergnomic assessment would happen. Con't progression. Physical Therapy Plan Frequency and Duration Frequency of Treatment 2x/Week Duration of Treatment 8 weeks Plan of Care Start Date 07/27/20 Plan of Care End Date 09/26/20 Therapeutic Interventions Therapeutic Interventions Aquatic Therapy,Balance Training,Canalithic Repositioning,Home Exercise Program,Joint Mobilizations, Manual Therapy,Neuromuscular Re-education,Patient/Caregiver Education,Self-Care/Home Management,Soft Tissue Mobilization,Taping, Therapeutic Exercises Modalities Cold Pack/Ice Massage Other Referrals/Consults Referrals/Consults Recommended Ergonomic assessment at work when appropriate for work station, pt is interested in therapy ball chair Next Visit Focus/Plan Next Note Type Treatment Note Next Visit Plan Counterstrain, eventually add intrascapular and shoulder strengthening exercises lying over pool noodle--ROM first for shoulders and pect stretch and then add band for strengthening
--- NOTE | 2020-08-29 10:26 | PT.OTN ---
Current Diagnoses Anesthesia of skin (08/29/20) Paresthesia of skin (08/29/20) Physical Therapy Treatment Note PT-OP-A Visit Information Start: 07/27/20 07:28 Freq: Status: Active Protocol: Document 08/29/20 09:33 MA (Rec: 08/29/20 10:26 MA [id number]) Out-Patient Physical Therapy Visit Information Visit Information Visit Type Treatment Note Visit Start Time 09:32 Visit Stop Time 10:12 Total Visit Minutes 40 Visit Number 9 Number of DIVERSIFIED CROPS FARMER Visits 1 PT-OP-B Current Condition Start: 07/27/20 07:28 Freq: Status: Active Protocol: Document 07/27/20 08:59 MB (Rec: 07/27/20 09:29 MB [id number]) Current Condition History of Current Condition Onset Date 6 weeks Current Complaints Numbness, achiness and tingling in upper thoracic spine History of Current Condition Pt reports that 6 weeks ago, she had a flare-up of numbness and tingling in the middle of her upper thoracic spine. She had 5 days of right sided face numbness and tingling and drooping. It resolved. Three weeks ago, her suddenly of a heart attack at the gym. 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 She has DM. About 2 months ago, she had her A1C checked and it was 7.2. She has a history of relapsing remitting MS. It has been a year and a half since her last flare-up. She denies new numbness and tingling in her arms and legs. She has her typical right forearm numbness and tingling and left calf numbness and tingling. She anticipates going back on medication for MS. She has been given sleeping medication. It kicks in about 0400. She gets up about once a night to urinate. Pt reports history of cervical spine C4-6 fusion in 2015. 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 Pt reports 5/10 achiness in upper thoracic spine, centrally. Prior Treatments and Tests Recent MRI brain revealed no new changes MRI cervical and thoracic spine scheduled for tomorrow . Treatment Goals Patient/Caregiver Goals To be able to stand and cook without pain PT-OP-C Subjective Start: 07/27/20 07:28 Freq: Status: Active Protocol: Document 08/29/20 09:33 MA (Rec: 08/29/20 10:26 MA [id number]) OP-PT Subjective Patient Comments Patient Comments Pt feels she is getting better and had no problem with her new HEP PT-OP-J Posture/Palpation/Skin Start: 07/27/20 07:28 Freq: Status: Active Protocol: Document 07/27/20 08:59 MB (Rec: 07/27/20 14:57 MB [id number]) Posture Evaluation Comments Posture Comments Forward head and rounded shoulders, Dowager's hump, elevated shoulders, greater on the left, decreased thoracic kyphosis and lumbar lordosis, right iliac crest higher than the left. PT-OP-K Range of Motion Start: 07/27/20 07:28 Freq: Status: Active Protocol: Document 07/27/20 08:59 MB (Rec: 07/27/20 14:57 MB [id number]) Cervical Spine Range of Motion Cervical Spine Active Testing Position Standing Flexion 35 Extension 15 Rotation Left 45 Rotation Right 42 Comments 2/10 pain with cervical extension at C7-T1 Shoulder Goniometric Range of Motion Shoulder Bilateral Shoulder ROM WFL Yes Testing Position Standing Comments Checked flexion and abduction in standing and both normal and equal PT-OP-M Strength Start: 07/27/20 07:28 Freq: Status: Active Protocol: Document 07/27/20 08:59 MB (Rec: 07/27/20 14:57 MB [id number]) Shoulder Strength Shoulder Manual Muscle Testing Bilateral Flexion 5 Normal Abduction (C5) 5 Normal External Rotation 5 Normal Internal Rotation 5 Normal Elbow/Forearm Strength Elbow and Forearm Manual Muscle Testing Bilateral Flexion (C6) 5 Normal Knee Strength Knee Manual Muscle Testing Bilateral Flexion (S2) 4 Good PT-OP-Q Treatments Start: 07/27/20 07:28 Freq: Status: Active Protocol: Document 08/29/20 09:33 MA (Rec: 08/29/20 10:26 MA [id number]) Therapeutic Exercises Supine Exercises Foam Roller Supine Exercise Name Hori ABD (pec stretch), shd flexion keeping spine on roller Equipment Used 1/2 foam roller Reps/Minutes 4' Sitting Exercises Thoracic rotation in sitting Side bilateral Comments Arms across chest, end-range nasal breathing, many reps Standing Exercises Scapular retraction and chin tuck Comments Performed in sitting and standing today Upper cervical isometric Comments Treated towards right rotation Self-massage and MWM with racquet ball and theracane Standing Exercise Name Theracane Side bilateral Comments Levator on the left Manual Therapy Treatment Soft Tissue Mobilization Intrascapular MMs Body Location Rhomboids, mid traps Mobilization Type Myofascial Release,Sustained Pressure,Trigger Point Release Intensity/Depth Moderate Body Position Prone Comments Mod-Deep pressure PT-OP-T Assessment and Plan Start: 07/27/20 07:28 Freq: Status: Active Protocol: Document 08/29/20 09:33 MA (Rec: 08/29/20 10:26 MA [id number]) Physical Therapy Assessment Goals 3 Service Parts Driver Goal (LTG) Pt will perform progressive HEP with I including breathing , relaxation, flexibility, postural and strengthening exercises to improve pain by . LTG Duration 8 weeks 2 Fpc Goal (LTG) Pt will present with improved AROM cervical flexion to 45 deg, extension to 25 deg and B rotation to 45 deg to improve neck movement with ADLs and IADLs by 09/26/20. LTG Duration 8 weeks 1 Fpc Goal (LTG) Pt will report a 75% improvement in cervical/ thoracic achiness to improve quality of life and ability to stand and cook by 09/26/20. LTG Duration 8 weeks Assessment Summary Assessment Thais was able to review latest HEP exercises with only minor cues during chin tucks for not flexing CS. Worked on shd ROM over 1/2 foam roller today and will begin strengthening next session. Added supine shd horizontal abd for pec stretch over pool noodle to pt 's HEP. Physical Therapy Plan Frequency and Duration Frequency of Treatment 2x/Week Duration of Treatment 8 weeks Plan of Care Start Date 07/27/20 Plan of Care End Date 09/26/20 Therapeutic Interventions Therapeutic Interventions Aquatic Therapy,Balance Training,Canalithic Repositioning,Home Exercise Program,Joint Mobilizations, Manual Therapy,Neuromuscular Re-education,Patient/Caregiver Education,Self-Care/Home Management,Soft Tissue Mobilization,Taping, Therapeutic Exercises Modalities Cold Pack/Ice Massage Other Referrals/Consults Referrals/Consults Recommended Ergonomic assessment at work when appropriate for work station, pt is interested in therapy ball chair Next Visit Focus/Plan Next Note Type Treatment Note Next Visit Plan Counterstrain, eventually add intrascapular and shoulder strengthening exercises lying over pool noodle--ROM first for shoulders and pect stretch and then add band for strengthening
--- NOTE | 2020-09-02 13:33 | PT.OTN ---
Current Diagnoses Anesthesia of skin (09/02/20) Paresthesia of skin (09/02/20) Physical Therapy Treatment Note PT-OP-A Visit Information Start: 07/27/20 07:28 Freq: Status: Active Protocol: Document 09/02/20 10:32 MB (Rec: 09/02/20 11:11 MB [id number]) Out-Patient Physical Therapy Visit Information Visit Information Visit Type Progress Note Visit Start Time 10:32 Visit Stop Time 11:15 Total Visit Minutes 43 Visit Number 10 Number of INSTRUMENT SHOP SUPERVISOR Visits 0 PT-OP-B Current Condition Start: 07/27/20 07:28 Freq: Status: Active Protocol: Document 07/27/20 08:59 MB (Rec: 07/27/20 09:29 MB [id number]) Current Condition History of Current Condition Onset Date 6 weeks Current Complaints Numbness, achiness and tingling in upper thoracic spine History of Current Condition Pt reports that 6 weeks ago, she had a flare-up of numbness and tingling in the middle of her upper thoracic spine. She had 5 days of right sided face numbness and tingling and drooping. It resolved. Three weeks ago, her suddenly of a heart attack at the gym. 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 She has DM. About 2 months ago, she had her A1C checked and it was 7.2. She has a history of relapsing remitting MS. It has been a year and a half since her last flare-up. She denies new numbness and tingling in her arms and legs. She has her typical right forearm numbness and tingling and left calf numbness and tingling. She anticipates going back on medication for MS. She has been given sleeping medication. It kicks in about 0400. She gets up about once a night to urinate. Pt reports history of cervical spine C4-6 fusion in 2015. 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 Pt reports 5/10 achiness in upper thoracic spine, centrally. Prior Treatments and Tests Recent MRI brain revealed no new changes MRI cervical and thoracic spine scheduled for tomorrow . Treatment Goals Patient/Caregiver Goals To be able to stand and cook without pain PT-OP-C Subjective Start: 07/27/20 07:28 Freq: Status: Active Protocol: Document 09/02/20 10:32 MB (Rec: 09/02/20 11:11 MB [id number]) OP-PT Subjective Patient Comments Patient Comments Pt states that it was nice to get away last weekend. She had to miss two days of work d/t left neck and shoulder pain. She thinks it is due to using the theracane. PT-OP-J Posture/Palpation/Skin Start: 07/27/20 07:28 Freq: Status: Active Protocol: Document 07/27/20 08:59 MB (Rec: 07/27/20 14:57 MB [id number]) Posture Evaluation Comments Posture Comments Forward head and rounded shoulders, Dowager's hump, elevated shoulders, greater on the left, decreased thoracic kyphosis and lumbar lordosis, right iliac crest higher than the left. PT-OP-K Range of Motion Start: 07/27/20 07:28 Freq: Status: Active Protocol: Document 07/27/20 08:59 MB (Rec: 07/27/20 14:57 MB [id number]) Cervical Spine Range of Motion Cervical Spine Active Testing Position Standing Flexion 35 Extension 15 Rotation Left 45 Rotation Right 42 Comments 2/10 pain with cervical extension at C7-T1 Shoulder Goniometric Range of Motion Shoulder Bilateral Shoulder ROM WFL Yes Testing Position Standing Comments Checked flexion and abduction in standing and both normal and equal PT-OP-M Strength Start: 07/27/20 07:28 Freq: Status: Active Protocol: Document 07/27/20 08:59 MB (Rec: 07/27/20 14:57 MB [id number]) Shoulder Strength Shoulder Manual Muscle Testing Bilateral Flexion 5 Normal Abduction (C5) 5 Normal External Rotation 5 Normal Internal Rotation 5 Normal Elbow/Forearm Strength Elbow and Forearm Manual Muscle Testing Bilateral Flexion (C6) 5 Normal Knee Strength Knee Manual Muscle Testing Bilateral Flexion (S2) 4 Good PT-OP-Q Treatments Start: 07/27/20 07:28 Freq: Status: Active Protocol: Document 09/02/20 10:32 MB (Rec: 09/02/20 11:11 MB [id number]) Manual Therapy Treatment Other Other Manual Treatments Suboccipital release, positional release left cervical spinal medullary veins and annular discs, positional release left greater than right SCM Self-Care/Home Management Treatment Education Other Education Discussed exercises to con't and stop--stop theracane at this time, con't postural cues for work, ergonomic assessment after d/c that will be separate from this PT course and con't use of towel roll, benefits of icing and nasal breathing (especially at tomorrow) PT-OP-T Assessment and Plan Start: 07/27/20 07:28 Freq: Status: Active Protocol: Document 09/02/20 10:32 MB (Rec: 09/02/20 11:11 MB [id number]) Physical Therapy Assessment Rehab Potential Rehabilitation Potential Fair Evaluation Complexity Number of Personal Factors/Comorbidities 1-2 Number of Body Systems Impaired 3 Clinical Presentation at Evaluation Evolving Impairments Impairments Activity Tolerance,Balance, Coordination,Pain,Posture,ROM, Sensation,Soft Tissue Mobility ,Strength Goals 3 Nursing Home Goal (LTG) Pt will perform progressive HEP with I including breathing , relaxation, flexibility, postural and strengthening exercises to improve pain by . 09/02/20: Pt is performing Buteyko breathing, open book, pect stretch, therapy ball stretches, racquet ball and theracane (ed to back off theracane right now). Pt is thinking about her ergonomics at work and walking. LTG Duration 5 weeks 2 Nursing Home Goal (LTG) Pt will present with improved AROM cervical flexion to 45 deg, extension to 35 deg and B rotation to 50 deg to improve neck movement with ADLs and IADLs by 10/11/20. 09/02/20: AROM cervical extension 30 deg before pain, flexion to 35 deg, B rotation right 50 deg and left 48 deg with pain with left rotation. LTG Duration 5 weeks 1 Manufacturing Area Manager Goal (LTG) Pt will report a 75% improvement in cervical/ thoracic achiness to improve quality of life and ability to stand and cook by 10/11/20. 09/02/20: Pt reports an overall 75% improvement in cervical and thoracic achiness since starting PT. Of note, she is having a flare-up these past two days. In general, she is not cooking as much d/t her son's late schedule. LTG Duration 5 weeks Assessment Summary Assessment Pt is having a flare-up of pain after using theracane a lot. She has been back to work over the past two weeks. Overall, she is feeling much better and is performing HEP. Her cervical ROM is improved. She will benefit from ongoing PT to improve pain, posture and strength, will progress strength over pool noodle in future treatments. Pt may have a break in treatment care for a couple of weeks when she has to prepare for her 's memorial and she is also back to work. Would like to be sensitive to this process. Overall, pt is doing a great job at self-care during this time. Physical Therapy Plan Frequency and Duration Frequency of Treatment 1-2x/wk Duration of Treatment 5 weeks Plan of Care Start Date 09/02/20 Plan of Care End Date 10/11/20 Therapeutic Interventions Therapeutic Interventions Aquatic Therapy,Balance Training,Canalithic Repositioning,Home Exercise Program,Joint Mobilizations, Manual Therapy,Neuromuscular Re-education,Patient/Caregiver Education,Self-Care/Home Management,Soft Tissue Mobilization,Taping, Therapeutic Exercises Modalities Cold Pack/Ice Massage Other Referrals/Consults Referrals/Consults Recommended Ergonomic assessment at work when appropriate for work station, pt is interested in therapy ball chair Next Visit Focus/Plan Next Note Type Treatment Note Next Visit Plan Pool noodle exercise progression--theraband for ER, horizontal abduction and PNF
--- NOTE | 2020-09-02 13:33 | PT.OPPOC ---
Physical, Occupational & Speech Therapy At [facility] Current Diagnoses Anesthesia of skin (09/02/20) Paresthesia of skin (09/02/20) Visit Care Team Role Provider Type Christelle Padron MD Attending Provider Physician Primary Care Provider Referring Provider Specialty: Internal Medicine Address: [address] [place] [address], [facility] Email: [email or web address] Plan Of Care PT-OP-T Assessment and Plan Start: 07/27/20 07:28 Freq: Status: Active Protocol: Document 09/02/20 10:32 MB (Rec: 09/02/20 11:11 MB [id number]) Physical Therapy Assessment Rehab Potential Rehabilitation Potential Fair Evaluation Complexity Number of Personal Factors/Comorbidities 1-2 Number of Body Systems Impaired 3 Clinical Presentation at Evaluation Evolving Impairments Impairments Activity Tolerance,Balance, Coordination,Pain,Posture,ROM, Sensation,Soft Tissue Mobility ,Strength Goals 3 Skilled Nursing Goal (LTG) Pt will perform progressive HEP with I including breathing , relaxation, flexibility, postural and strengthening exercises to improve pain by . 09/02/20: Pt is performing Buteyko breathing, open book, pect stretch, therapy ball stretches, racquet ball and theracane (ed to back off theracane right now). Pt is thinking about her ergonomics at work and walking. LTG Duration 5 weeks 2 Skilled Nursing Goal (LTG) Pt will present with improved AROM cervical flexion to 45 deg, extension to 35 deg and B rotation to 50 deg to improve neck movement with ADLs and IADLs by 10/11/20. 09/02/20: AROM cervical extension 30 deg before pain, flexion to 35 deg, B rotation right 50 deg and left 48 deg with pain with left rotation. LTG Duration 5 weeks 1 Freight Flagman Goal (LTG) Pt will report a 75% improvement in cervical/ thoracic achiness to improve quality of life and ability to stand and cook by 10/11/20. 09/02/20: Pt reports an overall 75% improvement in cervical and thoracic achiness since starting PT. Of note, she is having a flare-up these past two days. In general, she is not cooking as much d/t her son's late schedule. LTG Duration 5 weeks Assessment Summary Assessment Pt is having a flare-up of pain after using theracane a lot. She has been back to work over the past two weeks. Overall, she is feeling much better and is performing HEP. Her cervical ROM is improved. She will benefit from ongoing PT to improve pain, posture and strength, will progress strength over pool noodle in future treatments. Pt may have a break in treatment care for a couple of weeks when she has to prepare for her 's memorial and she is also back to work. Would like to be sensitive to this process. Overall, pt is doing a great job at self-care during this time. Physical Therapy Plan Frequency and Duration Frequency of Treatment 1-2x/wk Duration of Treatment 5 weeks Plan of Care Start Date 09/02/20 Plan of Care End Date 10/11/20 Therapeutic Interventions Therapeutic Interventions Aquatic Therapy,Balance Training,Canalithic Repositioning,Home Exercise Program,Joint Mobilizations, Manual Therapy,Neuromuscular Re-education,Patient/Caregiver Education,Self-Care/Home Management,Soft Tissue Mobilization,Taping, Therapeutic Exercises Modalities Cold Pack/Ice Massage Other Referrals/Consults Referrals/Consults Recommended Ergonomic assessment at work when appropriate for work station, pt is interested in therapy ball chair Next Visit Focus/Plan Next Note Type Treatment Note Next Visit Plan Pool noodle exercise progression--theraband for ER, horizontal abduction and PNF Plan of Care Dates Plan of Care Start Date 09/02/20 Plan of Care End Date 10/11/20 Electronically Signed by: Violette Crowell, PT 09/02/20 [id number] Please Sign and Return: I have reviewed this Plan of Care and certify that the skilled therapy services above are required to meet the patient?s needs. Physician Signature Date Printed Name and Credentials Clinical Instructor Signature Printed Name and Credentials
--- NOTE | 2020-09-02 15:14 | PT.OTN ---
Current Diagnoses Anesthesia of skin (09/02/20) Paresthesia of skin (09/02/20) Physical Therapy Treatment Note PT-OP-A Visit Information Start: 07/27/20 07:28 Freq: Status: Active Protocol: Document 09/02/20 10:32 MB (Rec: 09/02/20 11:11 MB [id number]) Out-Patient Physical Therapy Visit Information Visit Information Visit Type Progress Note Visit Start Time 10:32 Visit Stop Time 11:15 Total Visit Minutes 43 Visit Number 10 Number of SKIDWAY MAN Visits 0 PT-OP-B Current Condition Start: 07/27/20 07:28 Freq: Status: Active Protocol: Document 07/27/20 08:59 MB (Rec: 07/27/20 09:29 MB [id number]) Current Condition History of Current Condition Onset Date 6 weeks Current Complaints Numbness, achiness and tingling in upper thoracic spine History of Current Condition Pt reports that 6 weeks ago, she had a flare-up of numbness and tingling in the middle of her upper thoracic spine. She had 5 days of right sided face numbness and tingling and drooping. It resolved. Three weeks ago, her suddenly of a heart attack at the gym. 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 She has DM. About 2 months ago, she had her A1C checked and it was 7.2. She has a history of relapsing remitting MS. It has been a year and a half since her last flare-up. She denies new numbness and tingling in her arms and legs. She has her typical right forearm numbness and tingling and left calf numbness and tingling. She anticipates going back on medication for MS. She has been given sleeping medication. It kicks in about 0400. She gets up about once a night to urinate. Pt reports history of cervical spine C4-6 fusion in 2015. 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 Pt reports 5/10 achiness in upper thoracic spine, centrally. Prior Treatments and Tests Recent MRI brain revealed no new changes MRI cervical and thoracic spine scheduled for tomorrow . Treatment Goals Patient/Caregiver Goals To be able to stand and cook without pain PT-OP-C Subjective Start: 07/27/20 07:28 Freq: Status: Active Protocol: Document 09/02/20 10:32 MB (Rec: 09/02/20 11:11 MB [id number]) OP-PT Subjective Patient Comments Patient Comments Pt states that it was nice to get away last weekend. She had to miss two days of work d/t left neck and shoulder pain. She thinks it is due to using the theracane. PT-OP-J Posture/Palpation/Skin Start: 07/27/20 07:28 Freq: Status: Active Protocol: Document 07/27/20 08:59 MB (Rec: 07/27/20 14:57 MB [id number]) Posture Evaluation Comments Posture Comments Forward head and rounded shoulders, Dowager's hump, elevated shoulders, greater on the left, decreased thoracic kyphosis and lumbar lordosis, right iliac crest higher than the left. PT-OP-K Range of Motion Start: 07/27/20 07:28 Freq: Status: Active Protocol: Document 07/27/20 08:59 MB (Rec: 07/27/20 14:57 MB [id number]) Cervical Spine Range of Motion Cervical Spine Active Testing Position Standing Flexion 35 Extension 15 Rotation Left 45 Rotation Right 42 Comments 2/10 pain with cervical extension at C7-T1 Shoulder Goniometric Range of Motion Shoulder Bilateral Shoulder ROM WFL Yes Testing Position Standing Comments Checked flexion and abduction in standing and both normal and equal PT-OP-M Strength Start: 07/27/20 07:28 Freq: Status: Active Protocol: Document 07/27/20 08:59 MB (Rec: 07/27/20 14:57 MB [id number]) Shoulder Strength Shoulder Manual Muscle Testing Bilateral Flexion 5 Normal Abduction (C5) 5 Normal External Rotation 5 Normal Internal Rotation 5 Normal Elbow/Forearm Strength Elbow and Forearm Manual Muscle Testing Bilateral Flexion (C6) 5 Normal Knee Strength Knee Manual Muscle Testing Bilateral Flexion (S2) 4 Good PT-OP-Q Treatments Start: 07/27/20 07:28 Freq: Status: Active Protocol: Document 09/02/20 10:32 MB (Rec: 09/02/20 11:11 MB [id number]) Manual Therapy Treatment Taping Black KT to promote scapular retraction and to inhibit left upper traps Type of Tape Kinesio Tape Comments I strips running lateral to spine up inferior border B scapula to promote retraction and I strip to inhibit left upper traps Other Other Manual Treatments Suboccipital release, positional release left cervical spinal medullary veins and annular discs, positional release left greater than right SCM Self-Care/Home Management Treatment Education Other Education Discussed exercises to con't and stop--stop theracane at this time, con't postural cues for work, ergonomic assessment after d/c that will be separate from this PT course and con't use of towel roll, benefits of icing and nasal breathing (especially at tomorrow) PT-OP-T Assessment and Plan Start: 07/27/20 07:28 Freq: Status: Active Protocol: Document 09/02/20 10:32 MB (Rec: 09/02/20 11:11 MB [id number]) Physical Therapy Assessment Rehab Potential Rehabilitation Potential Fair Evaluation Complexity Number of Personal Factors/Comorbidities 1-2 Number of Body Systems Impaired 3 Clinical Presentation at Evaluation Evolving Impairments Impairments Activity Tolerance,Balance, Coordination,Pain,Posture,ROM, Sensation,Soft Tissue Mobility ,Strength Goals 3 Half-Way Goal (LTG) Pt will perform progressive HEP with I including breathing , relaxation, flexibility, postural and strengthening exercises to improve pain by . 09/02/20: Pt is performing Buteyko breathing, open book, pect stretch, therapy ball stretches, racquet ball and theracane (ed to back off theracane right now). Pt is thinking about her ergonomics at work and walking. LTG Duration 5 weeks 2 Tool Maker Apprentice Goal (LTG) Pt will present with improved AROM cervical flexion to 45 deg, extension to 35 deg and B rotation to 50 deg to improve neck movement with ADLs and IADLs by 10/11/20. 09/02/20: AROM cervical extension 30 deg before pain, flexion to 35 deg, B rotation right 50 deg and left 48 deg with pain with left rotation. LTG Duration 5 weeks 1 Half-Way Goal (LTG) Pt will report a 75% improvement in cervical/ thoracic achiness to improve quality of life and ability to stand and cook by 10/11/20. 09/02/20: Pt reports an overall 75% improvement in cervical and thoracic achiness since starting PT. Of note, she is having a flare-up these past two days. In general, she is not cooking as much d/t her son's late schedule. LTG Duration 5 weeks Assessment Summary Assessment Pt is having a flare-up of pain after using theracane a lot. She has been back to work over the past two weeks. Overall, she is feeling much better and is performing HEP. Her cervical ROM is improved. She will benefit from ongoing PT to improve pain, posture and strength, will progress strength over pool noodle in future treatments. Pt may have a break in treatment care for a couple of weeks when she has to prepare for her 's memorial and she is also back to work. Would like to be sensitive to this process. Overall, pt is doing a great job at self-care during this time. Physical Therapy Plan Frequency and Duration Frequency of Treatment 1-2x/wk Duration of Treatment 5 weeks Plan of Care Start Date 09/02/20 Plan of Care End Date 10/11/20 Therapeutic Interventions Therapeutic Interventions Aquatic Therapy,Balance Training,Canalithic Repositioning,Home Exercise Program,Joint Mobilizations, Manual Therapy,Neuromuscular Re-education,Patient/Caregiver Education,Self-Care/Home Management,Soft Tissue Mobilization,Taping, Therapeutic Exercises Modalities Cold Pack/Ice Massage Other Referrals/Consults Referrals/Consults Recommended Ergonomic assessment at work when appropriate for work station, pt is interested in therapy ball chair Next Visit Focus/Plan Next Note Type Treatment Note Next Visit Plan Pool noodle exercise progression--theraband for ER, horizontal abduction and PNF
--- NOTE | 2020-09-05 17:49 | PT.OTN ---
Current Diagnoses Anesthesia of skin (09/05/20) Paresthesia of skin (09/05/20) Physical Therapy Treatment Note PT-OP-A Visit Information Start: 07/27/20 07:28 Freq: Status: Active Protocol: Document 09/05/20 16:20 MA (Rec: 09/05/20 16:47 MA [id number]) Out-Patient Physical Therapy Visit Information Visit Information Visit Type Treatment Note Visit Start Time 16:00 Visit Stop Time 16:55 Total Visit Minutes 55 Visit Number 11 Number of LICENSED INVESTMENT SALES ASSISTANT Visits 1 PT-OP-B Current Condition Start: 07/27/20 07:28 Freq: Status: Active Protocol: Document 07/27/20 08:59 MB (Rec: 07/27/20 09:29 MB [id number]) Current Condition History of Current Condition Onset Date 6 weeks Current Complaints Numbness, achiness and tingling in upper thoracic spine History of Current Condition Pt reports that 6 weeks ago, she had a flare-up of numbness and tingling in the middle of her upper thoracic spine. She had 5 days of right sided face numbness and tingling and drooping. It resolved. Three weeks ago, her suddenly of a heart attack at the gym. 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 She has DM. About 2 months ago, she had her A1C checked and it was 7.2. She has a history of relapsing remitting MS. It has been a year and a half since her last flare-up. She denies new numbness and tingling in her arms and legs. She has her typical right forearm numbness and tingling and left calf numbness and tingling. She anticipates going back on medication for MS. She has been given sleeping medication. It kicks in about 0400. She gets up about once a night to urinate. Pt reports history of cervical spine C4-6 fusion in 2015. 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 Pt reports 5/10 achiness in upper thoracic spine, centrally. Prior Treatments and Tests Recent MRI brain revealed no new changes MRI cervical and thoracic spine scheduled for tomorrow . Treatment Goals Patient/Caregiver Goals To be able to stand and cook without pain PT-OP-C Subjective Start: 07/27/20 07:28 Freq: Status: Active Protocol: Document 09/05/20 16:20 MA (Rec: 09/05/20 16:47 MA [id number]) OP-PT Subjective Patient Comments Patient Comments Pt goes back to work tomorrow but is feeling better after last therapy session PT-OP-J Posture/Palpation/Skin Start: 07/27/20 07:28 Freq: Status: Active Protocol: Document 07/27/20 08:59 MB (Rec: 07/27/20 14:57 MB [id number]) Posture Evaluation Comments Posture Comments Forward head and rounded shoulders, Dowager's hump, elevated shoulders, greater on the left, decreased thoracic kyphosis and lumbar lordosis, right iliac crest higher than the left. PT-OP-K Range of Motion Start: 07/27/20 07:28 Freq: Status: Active Protocol: Document 07/27/20 08:59 MB (Rec: 07/27/20 14:57 MB [id number]) Cervical Spine Range of Motion Cervical Spine Active Testing Position Standing Flexion 35 Extension 15 Rotation Left 45 Rotation Right 42 Comments 2/10 pain with cervical extension at C7-T1 Shoulder Goniometric Range of Motion Shoulder Bilateral Shoulder ROM WFL Yes Testing Position Standing Comments Checked flexion and abduction in standing and both normal and equal PT-OP-M Strength Start: 07/27/20 07:28 Freq: Status: Active Protocol: Document 07/27/20 08:59 MB (Rec: 07/27/20 14:57 MB [id number]) Shoulder Strength Shoulder Manual Muscle Testing Bilateral Flexion 5 Normal Abduction (C5) 5 Normal External Rotation 5 Normal Internal Rotation 5 Normal Elbow/Forearm Strength Elbow and Forearm Manual Muscle Testing Bilateral Flexion (C6) 5 Normal Knee Strength Knee Manual Muscle Testing Bilateral Flexion (S2) 4 Good PT-OP-Q Treatments Start: 07/27/20 07:28 Freq: Status: Active Protocol: Document 09/05/20 16:20 MA (Rec: 09/05/20 16:47 MA [id number]) Therapeutic Exercises Supine Exercises Foam Roller Supine Exercise Name Hori ABD (pec stretch), shd flexion keeping spine on roller Side bilateral Equipment Used 1/2 foam roller Reps/Minutes 4' Sidelying Exercises Open Book Sidelying Exercise Name with arms straight and bent for increased pec stretch Side bilateral Reps/Minutes 10x5 sec hold Manual Therapy Treatment Soft Tissue Mobilization Intrascapular MMs Body Location Rhomboids, mid traps, UT Mobilization Type Myofascial Release,Sustained Pressure,Trigger Point Release Intensity/Depth Moderate Body Position Prone Comments Mod-Deep pressure PT-OP-T Assessment and Plan Start: 07/27/20 07:28 Freq: Status: Active Protocol: Document 09/05/20 16:20 MA (Rec: 09/05/20 16:47 MA [id number]) Physical Therapy Assessment Goals 3 Fdc Goal (LTG) Pt will perform progressive HEP with I including breathing , relaxation, flexibility, postural and strengthening exercises to improve pain by . 09/02/20: Pt is performing Buteyko breathing, open book, pect stretch, therapy ball stretches, racquet ball and theracane (ed to back off theracane right now). Pt is thinking about her ergonomics at work and walking. LTG Duration 5 weeks 2 Fdc Goal (LTG) Pt will present with improved AROM cervical flexion to 45 deg, extension to 35 deg and B rotation to 50 deg to improve neck movement with ADLs and IADLs by 10/11/20. 09/02/20: AROM cervical extension 30 deg before pain, flexion to 35 deg, B rotation right 50 deg and left 48 deg with pain with left rotation. LTG Duration 5 weeks 1 Conventional Underwriter Goal (LTG) Pt will report a 75% improvement in cervical/ thoracic achiness to improve quality of life and ability to stand and cook by 10/11/20. 09/02/20: Pt reports an overall 75% improvement in cervical and thoracic achiness since starting PT. Of note, she is having a flare-up these past two days. In general, she is not cooking as much d/t her son's late schedule. LTG Duration 5 weeks Assessment Summary Assessment Pt had increased mm tension in L>R UT and mid traps. Spent majority of session on STM to mid traps, rhomboids, and UTs bilaterally since pt feels it helps relieve a lot of her pain. Worked on supine exercises on foam roller without band today, focusing on keeping lumbar spine on 1/2 roller throughout movements and avoiding shd elevation during horizontal abd. Will progress to supine band exercises on 1/2 roller next session. Ended with pt on ice pack from thoracic-cervical spine today for 10 minutes. Physical Therapy Plan Frequency and Duration Frequency of Treatment 1-2x/wk Duration of Treatment 5 weeks Plan of Care Start Date 09/02/20 Plan of Care End Date 10/11/20 Therapeutic Interventions Therapeutic Interventions Aquatic Therapy,Balance Training,Canalithic Repositioning,Home Exercise Program,Joint Mobilizations, Manual Therapy,Neuromuscular Re-education,Patient/Caregiver Education,Self-Care/Home Management,Soft Tissue Mobilization,Taping, Therapeutic Exercises Modalities Cold Pack/Ice Massage Other Referrals/Consults Referrals/Consults Recommended Ergonomic assessment at work when appropriate for work station, pt is interested in therapy ball chair Next Visit Focus/Plan Next Note Type Treatment Note Next Visit Plan Pool noodle exercise progression--theraband for ER, horizontal abduction and PNF
--- NOTE | 2020-09-08 07:24 | PT-OP ANOTE ---
PT reviews patient's chart and notices that pt has no more appointments until October. Left pt message to ask about this and offered opening tomorrow if she wants to call back and see if it is still available. Waiting PT for a month is less ideal. She is working and preparing for 's memorial the middle of September.
--- NOTE | 2020-10-14 12:12 | PT.OTN ---
Current Diagnoses Anesthesia of skin (10/14/20) Paresthesia of skin (10/14/20) Physical Therapy Treatment Note PT-OP-A Visit Information Start: 07/27/20 07:28 Freq: Status: Active Protocol: Document 10/14/20 09:01 MB (Rec: 10/14/20 09:45 MB [id number]) Out-Patient Physical Therapy Visit Information Visit Information Visit Type Progress Note Visit Start Time 09:01 Visit Stop Time 09:45 Total Visit Minutes 44 Visit Number 12 Number of PROCUREMENT COST COORDINATOR Visits 0 PT-OP-B Current Condition Start: 07/27/20 07:28 Freq: Status: Active Protocol: Document 07/27/20 08:59 MB (Rec: 07/27/20 09:29 MB [id number]) Current Condition History of Current Condition Onset Date 6 weeks Current Complaints Numbness, achiness and tingling in upper thoracic spine History of Current Condition Pt reports that 6 weeks ago, she had a flare-up of numbness and tingling in the middle of her upper thoracic spine. She had 5 days of right sided face numbness and tingling and drooping. It resolved. Three weeks ago, her suddenly of a heart attack at the gym. 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 She has DM. About 2 months ago, she had her A1C checked and it was 7.2. She has a history of relapsing remitting MS. It has been a year and a half since her last flare-up. She denies new numbness and tingling in her arms and legs. She has her typical right forearm numbness and tingling and left calf numbness and tingling. She anticipates going back on medication for MS. She has been given sleeping medication. It kicks in about 0400. She gets up about once a night to urinate. Pt reports history of cervical spine C4-6 fusion in 2015. 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 Pt reports 5/10 achiness in upper thoracic spine, centrally. Prior Treatments and Tests Recent MRI brain revealed no new changes MRI cervical and thoracic spine scheduled for tomorrow . Treatment Goals Patient/Caregiver Goals To be able to stand and cook without pain PT-OP-C Subjective Start: 07/27/20 07:28 Freq: Status: Active Protocol: Document 10/14/20 09:01 MB (Rec: 10/14/20 09:45 MB [id number]) OP-PT Subjective Patient Comments Patient Comments Pt states that her 's went well. She is also retiring this month. She is feeling a lot better. She has one little spot on the left side of her neck that bothers her and that is it. PT-OP-J Posture/Palpation/Skin Start: 07/27/20 07:28 Freq: Status: Active Protocol: Document 07/27/20 08:59 MB (Rec: 07/27/20 14:57 MB [id number]) Posture Evaluation Comments Posture Comments Forward head and rounded shoulders, Dowager's hump, elevated shoulders, greater on the left, decreased thoracic kyphosis and lumbar lordosis, right iliac crest higher than the left. PT-OP-K Range of Motion Start: 07/27/20 07:28 Freq: Status: Active Protocol: Document 07/27/20 08:59 MB (Rec: 07/27/20 14:57 MB [id number]) Cervical Spine Range of Motion Cervical Spine Active Testing Position Standing Flexion 35 Extension 15 Rotation Left 45 Rotation Right 42 Comments 2/10 pain with cervical extension at C7-T1 Shoulder Goniometric Range of Motion Shoulder Bilateral Shoulder ROM WFL Yes Testing Position Standing Comments Checked flexion and abduction in standing and both normal and equal PT-OP-M Strength Start: 07/27/20 07:28 Freq: Status: Active Protocol: Document 07/27/20 08:59 MB (Rec: 07/27/20 14:57 MB [id number]) Shoulder Strength Shoulder Manual Muscle Testing Bilateral Flexion 5 Normal Abduction (C5) 5 Normal External Rotation 5 Normal Internal Rotation 5 Normal Elbow/Forearm Strength Elbow and Forearm Manual Muscle Testing Bilateral Flexion (C6) 5 Normal Knee Strength Knee Manual Muscle Testing Bilateral Flexion (S2) 4 Good PT-OP-Q Treatments Start: 07/27/20 07:28 Freq: Status: Active Protocol: Document 10/14/20 09:01 MB (Rec: 10/14/20 12:10 MB [id number]) Therapeutic Exercises Other Exercises Verbally reviewed HEP Comments Verbally reviewed HEP in preparation for d/c Manual Therapy Treatment Other Other Manual Treatments Pt sitting and PT performing MWM left greater than right posterior and middle scalene, upper traps and levator with pt performing active cervical SB or rotation Self-Care/Home Management Treatment Education Caregiver Education Ed pt on self-care going forward as far as activities, walking, exercise PT-OP-T Assessment and Plan Start: 07/27/20 07:28 Freq: Status: Active Protocol: Document 10/14/20 09:01 MB (Rec: 10/14/20 09:45 MB [id number]) Physical Therapy Assessment Goals 3 Fpc Goal (LTG) Pt will perform progressive HEP with I including breathing , relaxation, flexibility, postural and strengthening exercises to improve pain by . 10/14/20: Pt is performing Buteyko breathing, open book, pect stretch, therapy ball stretches, racquet ball, and working on posture and walking . LTG Duration Met 2 Dip Dyer Goal (LTG) Pt will present with improved AROM cervical flexion to 45 deg, extension to 35 deg and B rotation to 50 deg to improve neck movement with ADLs and IADLs by 10/11/20. 10/14/20: AROM cervical extension 35 deg before pain, flexion to 50 deg, B rotation right 60 deg and left 50 deg with a little pain with left rotation. LTG Duration Met 1 Dip Dyer Goal (LTG) Pt will report a 75% improvement in cervical/ thoracic achiness to improve quality of life and ability to stand and cook by 10/11/20. 10/14/20: Pt reports an overall 95% improvement in pain since starting PT and she has been cooking all week. LTG Duration Met Assessment Summary Assessment Pt has met all PT goals since starting therapy and these include pain, cervical ROM and HEP goals. Education on self- care and pt is very receptive and compliant. She is ready to d/c PT.
== END 2020-10-18 11:29 | disposition home or self-care (01) ==
LOC: PHYS 09:00
PROVIDERS: PCP Internal Medicine; Referring Provider Internal Medicine; Visit Provider Internal Medicine
DX: R20.0 Anesthesia of skin (principal); R20.2 Paresthesia of skin
CPT/HCPCS: 97110; 97140; 97162; 97535

== ENCOUNTER → 2020-10-21 15:18 | Outpatient (CLI) | payer OTHER, SELFPAY ==
[2020-10-21 15:46] LABS: Add Manual Diff / Slide Review NO; Basophils Absolute Auto 0 /uL (0-100); Basophils Percent Auto 0.9 % (0-2); Eosinophils Absolute Auto 100 /uL (0-450); Eosinophils Percent Auto 1.7 % (2-4); Hematocrit 39.8 % (36-46); Hemoglobin 13.3 g/dL (12.0-16.0); Lymphocytes Absolute Auto 1100 /uL (1100-4500); Lymphocytes Percent Auto 21.1 % (25-40); Mean Corpuscular HGB Conc 33.3 % (30-36); Mean Corpuscular Hemoglobin 30.1 PG (26-34); Mean Corpuscular Volume 90.4 fL (80-100); Monocytes Absolute Auto 500 /uL (0-900); Monocytes Percent Auto 9.1 % (3-14); Neutrophils Absolute Auto 3600 /uL (1500-7000); Neutrophils Percent Auto 67.2 % (50-75); Platelet Count 185 X10^3/uL (150-400); Red Blood Cell Count 4.41 X10^6/uL (4.0-5.2); Red Cell Distribution Width 15.2 % (11.6-14.8); White Blood Cell Count 5.4 X10^3/uL (4.5-11.0)
[2020-10-21 16:00] LABS: Alanine Aminotransferase 26 IU/L (<35); Albumin 4.5 g/dL (3.5-5.0); Albumin Globulin Ratio 1.6 (1.0-2.8); Alkaline Phosphatase 69 U/L (38-126); Aspartate Aminotransferase 30 IU/L (14-36); BUN Creatinine Ratio 28.2 (6-22); Bilirubin Total 0.4 mg/dL (0.2-1.3); Blood Urea Nitrogen 22 mg/dL (7-17); Calcium 9.7 mg/dL (8.4-10.2); Carbon Dioxide 29 mmol/L (22-32); Chloride 103 mmol/L (98-107); Estimated Glomerular Filt Rate > 60.0 mL/min (>60); Globulin 2.9 g/dL (1.7-4.1); Glucose 159 mg/dL (80-110); HEMOLYSIS < 15 (0-50); Potassium 4.1 mmol/L (3.4-5.1); Sodium 139 mmol/L (137-145); Total Protein 7.4 g/dL (6.3-8.2)
== END ==
PROVIDERS: PCP Internal Medicine; Referring Provider Psychiatry & Neurology Neurology; Visit Provider Psychiatry & Neurology Neurology
DX: Z51.81 Encounter for therapeutic drug level monitoring (principal)
CPT/HCPCS: 36415; 80053; 85025

== ENCOUNTER → 2020-11-10 08:38 | Outpatient (CLI) | payer OTHER, SELFPAY ==
[2020-11-10 13:05] LABS: Add Manual Diff / Slide Review NO; Basophils Absolute Auto 0 /uL (0-100); Basophils Percent Auto 0.6 % (0-2); Eosinophils Absolute Auto 100 /uL (0-450); Eosinophils Percent Auto 2.1 % (2-4); Hematocrit 39.9 % (36-46); Hemoglobin 13.5 g/dL (12.0-16.0); Lymphocytes Absolute Auto 1100 /uL (1100-4500); Mean Corpuscular Hemoglobin 30.5 PG (26-34); Mean Corpuscular Volume 89.7 fL (80-100); Monocytes Absolute Auto 400 /uL (0-900); Monocytes Percent Auto 8.7 % (3-14); Neutrophils Absolute Auto 3400 /uL (1500-7000); Neutrophils Percent Auto 66.6 % (50-75); Platelet Count 192 X10^3/uL (150-400); Red Blood Cell Count 4.44 X10^6/uL (4.0-5.2); Red Cell Distribution Width 15.1 % (11.6-14.8); White Blood Cell Count 5.1 X10^3/uL (4.5-11.0)
[2020-11-10 13:18] LABS: Alanine Aminotransferase 24 IU/L (<35); Albumin 4.4 g/dL (3.5-5.0); Albumin Globulin Ratio 1.6 (1.0-2.8); Alkaline Phosphatase 69 U/L (38-126); Aspartate Aminotransferase 27 IU/L (14-36); BUN Creatinine Ratio 23.8 (6-22); Bilirubin Total 0.3 mg/dL (0.2-1.3); Blood Urea Nitrogen 20 mg/dL (7-17); Calcium 9.9 mg/dL (8.4-10.2); Carbon Dioxide 33 mmol/L (22-32); Chloride 103 mmol/L (98-107); Estimated Glomerular Filt Rate > 60.0 mL/min (>60); Globulin 2.7 g/dL (1.7-4.1); Glucose 118 mg/dL (80-110); HEMOLYSIS < 15 (0-50); Potassium 4.4 mmol/L (3.4-5.1); Sodium 140 mmol/L (137-145); Total Protein 7.1 g/dL (6.3-8.2)
== END ==
PROVIDERS: PCP Internal Medicine; Referring Provider Psychiatry & Neurology Neurology; Visit Provider Psychiatry & Neurology Neurology
DX: Z51.81 Encounter for therapeutic drug level monitoring (principal)
CPT/HCPCS: 36415; 80053; 85025; 93005

== ENCOUNTER → 2020-12-14 14:38 | Outpatient (CLI) | payer OTHER, SELFPAY ==
[2020-12-14 16:22] LABS: Hemoglobin A1C% w Est Avg Glu 7.2 % (4.0-6.0)
== END ==
PROVIDERS: PCP Internal Medicine; Referring Provider Internal Medicine Endocrinology, Diabetes & Metabolism; Visit Provider Internal Medicine Endocrinology, Diabetes & Metabolism
DX: E11.65 Type 2 diabetes mellitus with hyperglycemia (principal)
CPT/HCPCS: 36415; 83036

== ENCOUNTER → 2020-12-21 18:22 | Outpatient (CLI) | payer OTHER, SELFPAY | PROVIDERS: PCP Internal Medicine; Referring Provider Internal Medicine; Visit Provider Internal Medicine | DX: Z23 Encounter for immunization (principal) | CPT/HCPCS: 90471; 90686 ==

== ENCOUNTER → 2020-12-30 10:37 | Outpatient (CLI) | payer OTHER, SELFPAY ==
[2020-12-30] MEDS: COVID-19 VACC #3, MRNA(MOD) 50 MCG/0.25 ML VIAL IM (10:40)
== END ==
PROVIDERS: PCP Internal Medicine; Visit Provider Internal Medicine
DX: Z23 Encounter for immunization (principal)
CPT/HCPCS: 0013A; 91301

== ENCOUNTER → 2021-05-06 10:51 | Outpatient (CLI) | payer OTHER, SELFPAY ==
[2021-05-06 12:52] LABS: Add Manual Diff / Slide Review NO; Basophils Absolute Auto 100 /uL (0-100); Basophils Percent Auto 1.1 % (0-2); Eosinophils Absolute Auto 100 /uL (0-450); Eosinophils Percent Auto 2.2 % (2-4); Hematocrit 38.7 % (36-46); Hemoglobin 13.3 g/dL (12.0-16.0); Lymphocytes Absolute Auto 1100 /uL (1100-4500); Lymphocytes Percent Auto 20.2 % (25-40); Mean Corpuscular HGB Conc 34.3 % (30-36); Mean Corpuscular Volume 87.7 fL (80-100); Monocytes Absolute Auto 500 /uL (0-900); Monocytes Percent Auto 8.4 % (3-14); Neutrophils Absolute Auto 3700 /uL (1500-7000); Neutrophils Percent Auto 68.1 % (50-75); Platelet Count 181 X10^3/uL (150-400); Red Blood Cell Count 4.41 X10^6/uL (4.0-5.2); Red Cell Distribution Width 15.3 % (11.6-14.8); White Blood Cell Count 5.4 X10^3/uL (4.5-11.0)
[2021-05-06 13:04] LABS: Alanine Aminotransferase 26 IU/L (<35); Albumin 4.4 g/dL (3.5-5.0); Albumin Globulin Ratio 1.5 (1.0-2.8); Alkaline Phosphatase 56 U/L (38-126); Aspartate Aminotransferase 30 IU/L (14-36); BUN Creatinine Ratio 20.7 (6-22); Bilirubin Total 0.6 mg/dL (0.2-1.3); Blood Urea Nitrogen 18 mg/dL (7-17); Calcium 9.5 mg/dL (8.4-10.2); Carbon Dioxide 28 mmol/L (22-32); Chloride 103 mmol/L (98-107); Estimated Glomerular Filt Rate > 60.0 mL/min (>60); Globulin 2.9 g/dL (1.7-4.1); Glucose 156 mg/dL (80-110); HEMOLYSIS 22 (0-50); Potassium 4.6 mmol/L (3.4-5.1); Sodium 138 mmol/L (137-145); Total Protein 7.3 g/dL (6.3-8.2)
== END ==
PROVIDERS: PCP Internal Medicine; Referring Provider Psychiatry & Neurology Neurology; Visit Provider Psychiatry & Neurology Neurology
DX: Z51.81 Encounter for therapeutic drug level monitoring (principal)
CPT/HCPCS: 36415; 80053; 85025

== ENCOUNTER → 2021-05-23 07:50 | Outpatient (CLI) | payer OTHER, SELFPAY ==
[2021-05-23 09:13] LABS: Hemoglobin A1C% w Est Avg Glu 7.8 % (4.0-6.0)
[2021-05-23 09:47] LABS: Cholesterol 211 mg/dL (140-199); HDL Cholesterol 66 mg/dL (40-60); LDL Cholesterol Calculated 108 mg/dL (<100); Triglycerides 187 mg/dL (35-150)
[2021-05-23 10:31] LABS: HIV 1 & 2 Ab/Ag 4th Gen Combo NEGATIVE (NEGATIVE)
[2021-05-23 11:18] LABS: Appearance Urine UA CLEAR; Bilirubin Urine UA NEGATIVE (NEGATIVE); Color Urine UA YELLOW; Glucose Urine UA 2+ g/dL (Negative); Ketones Urine UA NEGATIVE (NEGATIVE); Leukocyte Esterase Urine UA NEGATIVE (NEGATIVE); Nitrite Urine UA NEGATIVE (Negative); Occult Blood Urine UA TRACE-LYSED (Negative); Protein Urine UA NEGATIVE (Negative); Urobilinogen Urine UA 0.2 E.U./dL (0.2)
[2021-05-23 11:45] LABS: RBC Urine 1-5/HPF (0-5/HPF); Squamous Epithelial Cell Urine 1-5 /HPF (0-5/HPF); WBC Urine 1-5/HPF (0-5/HPF)
[2021-05-23 11:46] LABS: Amorphous Sediment Urine 1+; Bacteria Urine Few (2-10); Culture Indicated Urine Specimen Cultured
[2021-05-23 12:12] LABS: Creatinine Urine Random 96.9 mg/dL
[2021-05-23 12:15] LABS: Microalbumin Urine Random < 0.6 mg/dL (0-1.6)
[2021-05-24 08:10] LABS: HCV AB <0.1 s/co ratio (0.0-0.9)
== END ==
PROVIDERS: PCP Internal Medicine; Referring Provider Internal Medicine; Visit Provider Internal Medicine
DX: R39.15 Urgency of urination (principal); E78.5 Hyperlipidemia, unspecified; E11.9 Type 2 diabetes mellitus without complications; Z11.4 Encounter for screening for human immunodeficiency virus [HIV]; Z11.59 Encounter for screening for other viral diseases
CPT/HCPCS: 36415; 80061; 81001; 82043; 82570; 83036; 86803; 87077; 87086; 87186; 87389

== ENCOUNTER → 2021-08-23 15:47 | Outpatient (CLI) | payer OTHER, SELFPAY ==
[2021-08-23 17:02] LABS: Add Manual Diff / Slide Review NO; Basophils Absolute Auto 100 /uL (0-100); Eosinophils Absolute Auto 200 /uL (0-450); Eosinophils Percent Auto 3.2 % (2-4); Hematocrit 36.2 % (36-46); Hemoglobin 12.5 g/dL (12.0-16.0); Lymphocytes Absolute Auto 1300 /uL (1100-4500); Lymphocytes Percent Auto 24.7 % (25-40); Mean Corpuscular HGB Conc 34.6 % (30-36); Mean Corpuscular Hemoglobin 30.2 PG (26-34); Mean Corpuscular Volume 87.4 fL (80-100); Monocytes Absolute Auto 400 /uL (0-900); Monocytes Percent Auto 7.8 % (3-14); Neutrophils Absolute Auto 3200 /uL (1500-7000); Neutrophils Percent Auto 63.3 % (50-75); Platelet Count 172 X10^3/uL (150-400); Red Blood Cell Count 4.14 X10^6/uL (4.0-5.2); Red Cell Distribution Width 14.8 % (11.6-14.8); White Blood Cell Count 5.1 X10^3/uL (4.5-11.0)
[2021-08-23 17:03] LABS: Bilirubin Urine UA NEGATIVE (NEGATIVE); Color Urine UA YELLOW; Glucose Urine UA 2+ g/dL (Negative); Ketones Urine UA TRACE (NEGATIVE); Leukocyte Esterase Urine UA NEGATIVE (NEGATIVE); Nitrite Urine UA NEGATIVE (Negative); Occult Blood Urine UA TRACE-LYSED (Negative); Protein Urine UA TRACE (Negative); Specific Gravity Urine UA >=1.030 (1.000-1.035); Urobilinogen Urine UA 0.2 E.U./dL (0.2)
[2021-08-23 17:08] LABS: Appearance Urine UA Slightly Cloudy
[2021-08-23 17:10] LABS: Bacteria Urine Occasional (0-1); Culture Indicated Urine Specimen Cultured; RBC Urine 0-1/HPF (0-5/HPF); Squamous Epithelial Cell Urine 1-5 /HPF (0-5/HPF); WBC Urine 5-10/HPF (0-5/HPF)
[2021-08-23 17:34] LABS: Alanine Aminotransferase 24 IU/L (<35); Albumin 3.9 g/dL (3.5-5.0); Albumin Globulin Ratio 1.6 (1.0-2.8); Alkaline Phosphatase 66 U/L (38-126); Aspartate Aminotransferase 24 IU/L (14-36); BUN Creatinine Ratio 29.2 (6-22); Bilirubin Total 0.4 mg/dL (0.2-1.3); Blood Urea Nitrogen 21 mg/dL (7-17); Calcium 9.1 mg/dL (8.4-10.2); Carbon Dioxide 29 mmol/L (22-32); Chloride 100 mmol/L (98-107); Estimated Glomerular Filt Rate > 60 mL/min (>60); Globulin 2.5 g/dL (1.7-4.1); Glucose 276 mg/dL (80-110); HEMOLYSIS < 15 (0-50); Sodium 138 mmol/L (137-145); Total Protein 6.4 g/dL (6.3-8.2)
== END ==
PROVIDERS: PCP Internal Medicine; Referring Provider Psychiatry & Neurology Neurology; Visit Provider Psychiatry & Neurology Neurology
DX: Z51.81 Encounter for therapeutic drug level monitoring (principal)
CPT/HCPCS: 36415; 80053; 81001; 85025; 87077; 87086; 87186

== ENCOUNTER → 2021-11-14 10:41 | Outpatient (CLI) | payer OTHER, SELFPAY ==
--- NOTE | 2021-11-14 10:45 | DI.MG.S_ITS ---
BILATERAL DIGITAL SCREENING MAMMOGRAM 3D/2D WITH CAD: 11/14/2021 CLINICAL: Routine screening. Comparison is made to exams dated: 10/05/2020 mammogram, 08/20/2019 mammogram, 07/16/2018 mammogram, and 06/23/2018 mammogram - [facility]. Both breasts are heterogeneously dense, which may obscure small masses (category c / 51-75% glandular tissue). Current study was also evaluated with a Computer Aided Detection (CAD) system. No significant masses, calcifications, or other findings are seen in either breast. There has been no significant interval change. IMPRESSION: NEGATIVE There is no mammographic evidence of malignancy. A 1 year screening mammogram is recommended. Based on the Tyrer Cuzick model (a risk assessment model) the patient's lifetime risk is 11.3% and her 10 year risk is 4.9%. According to the ACR, ACS, and NCCN guidelines, an annual breast MRI exam along with mammogram is recommended if the patient's lifetime risk is 20% or greater. This exam was interpreted at Station ID: [id number]. NOTE: For mammograms, a report in lay terms will be sent to the patient. Approximately 15% of breast malignancies will not be visualized mammographically. In the management of a palpable breast mass, a negative mammogram must not discourage biopsy of a clinically suspicious lesion. Electronically Signed By: Nathanael li/martine:11/14/2021 16:56:04 letter sent: Normal Exam ACR BI-RADS Category 1: Negative 3341F
[2021-11-14 12:42] LABS: Add Manual Diff / Slide Review NO; Basophils Absolute Auto 0 /uL (0-100); Basophils Percent Auto 0.9 % (0-2); Eosinophils Absolute Auto 100 /uL (0-450); Eosinophils Percent Auto 2.3 % (2-4); Hematocrit 41.8 % (36-46); Hemoglobin 14.1 g/dL (12.0-16.0); Lymphocytes Absolute Auto 1100 /uL (1100-4500); Lymphocytes Percent Auto 23.2 % (25-40); Mean Corpuscular HGB Conc 33.7 % (30-36); Mean Corpuscular Volume 89.1 fL (80-100); Monocytes Absolute Auto 400 /uL (0-900); Monocytes Percent Auto 8.8 % (3-14); Neutrophils Absolute Auto 3100 /uL (1500-7000); Neutrophils Percent Auto 64.8 % (50-75); Platelet Count 205 X10^3/uL (150-400); Red Blood Cell Count 4.69 X10^6/uL (4.0-5.2); Red Cell Distribution Width 15.4 % (11.6-14.8); White Blood Cell Count 4.9 X10^3/uL (4.5-11.0)
[2021-11-14 13:33] LABS: Alanine Aminotransferase 33 IU/L (<35); Albumin 4.6 g/dL (3.5-5.0); Albumin Globulin Ratio 1.6 (1.0-2.8); Alkaline Phosphatase 61 U/L (38-126); Aspartate Aminotransferase 34 IU/L (14-36); BUN Creatinine Ratio 20.5 (6-22); Bilirubin Total 0.4 mg/dL (0.2-1.3); Blood Urea Nitrogen 17 mg/dL (7-17); Calcium 9.7 mg/dL (8.4-10.2); Carbon Dioxide 31 mmol/L (22-32); Chloride 99 mmol/L (98-107); Estimated Glomerular Filt Rate > 60 mL/min (>60); Globulin 2.8 g/dL (1.7-4.1); Glucose 174 mg/dL (80-110); HEMOLYSIS < 15 (0-50); Potassium 4.5 mmol/L (3.4-5.1); Sodium 140 mmol/L (137-145); Total Protein 7.4 g/dL (6.3-8.2)
== END ==
PROVIDERS: PCP Internal Medicine; Referring Provider Psychiatry & Neurology Neurology; Visit Provider Psychiatry & Neurology Neurology
DX: Z12.31 Encounter for screening mammogram for malignant neoplasm of breast (principal); Z51.81 Encounter for therapeutic drug level monitoring
CPT/HCPCS: 36415; 77063; 77067; 80053; 85025